=== PATIENT | male | born 1940 | race Caucasian/White ===

== ENCOUNTER → 2017-05-21 | Emergency (ER) | payer OTHER, MEDICARE ==
[~2017-05-21] VITALS: Ht 172.7 cm; Wt 77.6 kg
[~2017-05-21] MED LIST: ALAVERT10 M1 PO; ALBUTEROL SULF8.5 GM INH; ASPIR 8181 MG PO; ATENOLOL25 MG PO; AZITHROMYCIN250 MG PO; AZITHROMYCIN500 MG PO; CLARITIN10 MG PO; CVS LUBRICATING15 ML OP; DENTA 5000 PLUS51 GM DT; DOCUSATE SODIU250 MG PO; GABAPENTIN300 MG; GABAPENTIN300 MG PO; GABAPENTIN400 MG PO; GLUCOPHAGE850 MG PO; GLUCOSAMINE1000 MG PO; HYALURONIC ACI1 EACH PO; IRON325 MG PO; ISOSORBIDE MONO30 M1 PO; KURIC75 GM TP; LACTASE3000 UNIT PO; LIPITOR20 MG PO; LOPID600 MG PO; LUBRICANT EYE3.5 G1 OPTH; MAGNESIUM OXID420 MG PO; MOMETASONE FURO17 GM NAS; MOMETASONE FURO30 ML TOP; MOTION RELIEF25 MG PO; MUCINEX600 MG PO; MUCUS ER600 MG PO; MULTI-BETIC TA1 EACH PO; NARCAN4 MG; NITROSTAT0.4 MG SL; NORCO 10-325 T1 EACH PO; NORCO 5-325 TA1 EACH PO; OFLOXACIN10 ML OPTH; OFLOXACIN10 ML OTIC; OXYCODONE-ACET1 EAC1 PO; PERIDEX473 ML MM; POLYETHYLENE GL17 GM PO; PRAVACHOL40 MG PO; PREDNISONE20 MG PO; PRILOSEC OTC20 MG PO; PRILOSEC20 MG PO; RISPERDAL1 MG PO; SLO-NIACIN500 MG PO; SPIRIVA18 MCG INH; SYMBICORT 16010.2 GM INH; TOPROL XL25 MG PO; VITAMIN D1000 UNIT PO; ZITHROMAX250 MG PO; [UNRECOGNIZED DRUG - OTHER]; [UNRECOGNIZED DRUG - OTHER] TP
--- OUTSIDE RECORDS SUMMARY | ~2017-05-21 | XMS | Clinical Summary ---
Demographics + + + | Address | [address] | | | [place] [address] | + + + | Home Phone | | + + + | Preferred Language | Unknown | + + + | Marital Status | Single | + + + | Bahai Affiliation | UNK | + + + | Race | Unknown | + + + | Ethnic Group | Other Race | + + + Author + + + | Author | NON REVENUE LOCATIONS | + + + | Organization | NON REVENUE LOCATIONS | + + + | Address | Unknown | + + + | Phone | Unavailable | + + + Care Team Providers + +------+ + | Care Block Saw Operator Name | Role | Phone | + +------+ + | No Pcp Per Patient | PP | Unavailable | + +------+ + Source Comments JENNIFER is fully live on both EpicCare Ambulatory and EpicCare InPatient.[facility] Allergies + + + + + + | Active Allergy | Reactions | Severity | Noted | Comments | | | | | Date | | + + + + + + | Chloral Hydrate | Headache | | 03/24/19 | | | | | | 14 | | + + + + + + | Indomethacin | Headache | | 03/24/19 | | | | | | 14 | | + + + + + + | Penicillins | Nausea | | 03/24/19 | | | | | | 14 | | + + + + + + Current Medications + + +-------+---------+------+------+-------+ | Prescription | Sig. | Disp. | Refills | Star | End | Statu | | | | | | t | Date | s | | | | | | Date | | | + + +-------+---------+------+------+-------+ | aspirin EC 81 mg | Take 81 mg by mouth | | | | | Activ | | oral tablet,delayed | once daily. | | | | | e | | release (DR/EC) | | | | | | | + + +-------+---------+------+------+-------+ | atenolol 25 mg | Take 25 mg by mouth | | | | | Activ | | oral tablet | once daily. | | | | | e | + + +-------+---------+------+------+-------+ | | Instill 1 drop into | | | | | Activ | | carboxymethylcellulo | both eyes once | | | | | e | | se 0.5 % ophthalmic | daily. | | | | | | | dropperette | | | | | | | + + +-------+---------+------+------+-------+ | gemfibrozil 600 mg | Take 600 mg by mouth | | | | | Activ | | oral | two times daily. | | | | | e | | tabletIndications: | Indications: | | | | | | | hypertriglyceridemia | HYPERTRIGLYCERIDEMIA | | | | | | + + +-------+---------+------+------+-------+ | guaiFENesin LA 600 | Take 600 mg by mouth | | | | | Activ | | mg oral tablet | twice daily as | | | | | e | | extended release | needed. | | | | | | + + +-------+---------+------+------+-------+ | loratadine 10 mg | Take 10 mg by mouth | | | | | Activ | | oral tablet | once daily. | | | | | e | + + +-------+---------+------+------+-------+ | metFORMIN 850 mg | Take 850 mg by mouth | | | | | Activ | | oral tablet | two times daily. | | | | | e | + + +-------+---------+------+------+-------+ | niacin 500 mg oral | Take 500 mg by mouth | | | | | Activ | | tablet | once daily at | | | | | e | | | bedtime. | | | | | | + + +-------+---------+------+------+-------+ | nitroglycerin 0.4 | Place 0.4 mg under | | | | | Activ | | mg sublingual | tongue every five | | | | | e | | tablet, sublingual | minutes as [...] 15 minutes. | | | | | | + + +-------+---------+------+------+-------+ | cholecalciferol, | Take 2,000 Units by | | | | | Activ | | Vitamin D3, 1,000 | mouth once daily. | | | | | e | | unit oral tablet | | | | | | | + + +-------+---------+------+------+-------+ | desonide 0.05 % | Apply to affected | | | | | Activ | | topical cream | area two times | | | | | e | | | daily. Apply | | | | | | | | sparingly. | | | | | | + + +-------+---------+------+------+-------+ | fluorouracil 5 % | Apply to affected | | | | | Activ | | topical cream | area two times | | | | | e | | | daily. Apply to | [...] | treatment. | | | | | | + + +-------+---------+------+------+-------+ | omeprazole 20 mg | Take 20 mg by mouth | | | | | Activ | | oral capsule,delayed | once daily. | | | | | e | | release(/EC) | | | | | | | + + +-------+---------+------+------+-------+ | docusate sodium | Take 250 mg by mouth | | | | | Activ | | 250 mg oral capsule | twice daily as | | | | | e | | | needed. | | | | | | + + +-------+---------+------+------+-------+ | gabapentin 600 mg | Take 600 mg by mouth | | | | | Activ | | oral tablet | three times daily. | | | | | e | + + +-------+---------+------+------+-------+ | pravastatin 80 mg | Take 80 mg by mouth | | | | | Activ | | oral tablet | once daily at | | | | | e | | | bedtime. | | | | | | + + +-------+---------+------+------+-------+ | risperiDONE 1 mg | Take 1 mg by mouth. | | | | | Activ | | oral tablet | | | | | | e | + + +-------+---------+------+------+-------+ | MOMETASONE FUROATE | Instill in nose two | | | | | Activ | | (MOMETASONE NASL) | times daily. | | | | | e | + + +-------+---------+------+------+-------+ | | Take 1 tablet by | | | | | Activ | | HYDROcodone-acetamin | mouth three times | | | | | e | | ophen 5-325 mg oral | daily as needed. Not | | | | | | | tablet [...] hour period.) | | | | | | + + +-------+---------+------+------+-------+ | | Inhale 2 puffs two | | | | | Activ | | budesonide-formotero | times daily. | | | | | e | | l 160-4.5 | | | | | | | | mcg/actuation | | | | | | | | inhalation HFA | | | | | | | | aerosol inhaler | | | | | | | + + +-------+---------+------+------+-------+ | ferrous sulfate | Take 325 mg by mouth | | | | | Activ | | 325 mg (65 mg iron) | once daily. | | | | | e | | oral tablet | | | | | | | + + +-------+---------+------+------+-------+ | albuterol 90 | Inhale 2 puffs every | | | | | Activ | | mcg/actuation | four hours as | | | | | e | | inhalation HFA | needed. | | | | | | | aerosol inhaler | | | | | | | + + +-------+---------+------+------+-------+ | isosorbide | Take 30 mg by mouth | | | | | Activ | | mononitrate CR 30 mg | once daily. | | | | | e | | oral tablet | | | | | | | | extended release 24 | | | | | | | | hr | | | | | | | + + +-------+---------+------+------+-------+ | magnesium oxide | Take 250 mg by mouth | | | | | Activ | | 250 mg oral tablet | once daily. | | | | | e | + + +-------+---------+------+------+-------+ Active Problems + + + | Problem | Noted Date | + + + | Non-small cell lung cancer (HCC) | 03/24/2013 | + + + Social History + [...] on file | | + + + Last Filed Vital Signs + + + + | Vital Sign | Reading | Time Taken | + + + + | Blood Pressure | 110/72 | 05/01/2013 11:25 AM PST | + + + + | Pulse | 73 | 05/01/2013 11:25 AM PST | + + + + | Temperature | 36.3 C (97.4 F) | 05/01/2013 11:25 AM PST | + + + + | Respiratory Rate | - | - | + + + + | Oxygen Saturation | 94% | 05/01/2013 11:25 AM PST | + + + + | Inhaled Oxygen | - | - | | Concentration | | | + + + + | Weight | 90.3 kg (199 lb) | 05/01/2013 11:25 AM PST | + + + + | Height | - | - | + + + + | Body Mass Index | - | - | + + + + Plan of Treatment + + + + + | Health Maintenance | Due Date | Last Done | Comments | + + + + + | INFLUENZA VACCINE | | | | | (FLU SHOT) | 7 | | | + + + + + Results Not on filefrom Last 3 Months"
--- OUTSIDE RECORDS SUMMARY | ~2017-05-21 | XMS | Clinical Summary ---
Demographics + + + | Address | [address] | | | [place] [address] | + + + | Home Phone | | + + + | Preferred Language | Unknown | + + + | Marital Status | | + + + | Roman Catholic Affiliation | BUDDHIST | + + + | Race | [...] Team Providers + +------+ + | Care Life Scientist Name | Role | Phone | + [...] + + | MEDICARE | MEDICA | [id number] | Medica | [phone] | [address] | | | RE A & | | re | [phone] | [place] [address] | | | B | | | [...] | ap | | | [phone] | + +--------+ +--------+ + +"
--- OUTSIDE RECORDS SUMMARY | ~2017-05-21 | XMS | Clinical Summary ---
Demographics + + + | Address | [address] | | | [place] [address] | + + + | Home Phone | | + + + | Preferred Language | Unknown | + + + | Marital Status | | + + + | Hindu Affiliation | EPISCOPAL | + + + | Race | [...] Team Providers + +------+ + | Care Helmet Hat Puncher Name | Role | Phone | + [...] + + | MEDICARE | MEDICA | [id number] | Medica | [phone] | [address] | | | RE A & | | re | [phone] | [place] [address] | | | B | | | [...] | ap | | | [phone] | + +--------+ +--------+ + +"
--- OUTSIDE RECORDS SUMMARY | ~2017-05-21 | XMS | Clinical Summary ---
Demographics + + + | Address | [address] | | | [place] [address] | + + + | Home Phone | | + + + | Preferred Language | Unknown | + + + | Marital Status | Single | + + + | Yarsanism Affiliation | UNK | + + + [...] Team Providers + +------+ + | Care Drawing In Hand Name | Role | Phone | + +------+ + | No Pcp Per Patient | PP | Unavailable | + +------+ + Source Comments JENNIFER is fully live on both EpicCare Ambulatory and EpicCare InPatient.[facility] Allergies + + + + + + [...]
--- NOTE | 2017-05-21 20:49 | EKG ---
[facility] [address] [facility] [place] [address] Signed Sinus bradycardia Otherwise normal ECG No previous ECGs available Confirmed by AURY QUEZADA MD ([id number]) on 05/21/2017 8:49:43 PM Electronically Signed By: AURY QUEZADA MD 05/21/17 2049 PATIENT NAME: SUSAN GOEL Electrocardiogram DATE OF : 38 PHYSICIAN: AURY QUEZADA MD REPORT #: [id number] REPORT IS CONFIDENTIAL AND NOT TO BE RELEASED WITHOUT AUTHORIZATION
== END | disposition home or self-care (01) ==
LOC: ED 14:24
PROC: 0T9B70Z Drainage of Bladder with Drainage Device, Via Natural or Artificial Opening (ICD-10-PCS; principal; 2017-05-21)
DX: R55 Syncope and collapse (principal); J44.9 Chronic obstructive pulmonary disease, unspecified; F20.9 Schizophrenia, unspecified; E78.00 Pure hypercholesterolemia, unspecified; I10 Essential (primary) hypertension; E11.9 Type 2 diabetes mellitus without complications; Z88.0 Allergy status to penicillin; Z88.8 Allergy status to other drugs, medicaments and biological substances; Z79.899 Other long term (current) drug therapy; Z79.82 Long term (current) use of aspirin; Z79.84 Long term (current) use of oral hypoglycemic drugs
CPT/HCPCS: 51701; 71045; 80053; 81001; 84484; 85025; 93005; 93010; 96374; 99284; G0480; J2310

== ENCOUNTER 2017-05-22 13:03 | Emergency (ER) | payer MEDICARE, OTHER ==
[~2017-05-22] VITALS: Ht 172.7 cm; Wt 70.3 kg
--- OUTSIDE RECORDS SUMMARY | ~2017-05-22 | XMS | Clinical Summary ---
Demographics + + + | Address | [address] | | | [place] [address] | + + + | Home Phone | | + + + | Preferred Language | Unknown | + + + | Marital Status | | + + + | Baptism Affiliation | ALEVISM | + + + | Race | White | + + + | Ethnic Group | Not or | + + + Author + + + | Author | [facility] | + + + | Organization | [facility] | + + + | Address | Unknown | + + + | Phone | Unavailable | + + + Support + + +---------+ + | Name | Relationship | Address | Phone | + + +---------+ + | ANJU MOSS | ECON | Unknown | | + + +---------+ + | RODERICK MOSS | ECON | Unknown | | + + +---------+ + Care Team Providers + +------+ + | Care Fish House Worker Name | Role | Phone | + +------+ + | None Per Patient, None Per | PP | Unavailable | | Pt | | | + +------+ + Allergies Not on File Current Medications + + +-------+---------+------+------+-------+ | Prescription | Sig. | Disp. | Refills | Star | End | Statu | | | | | | t | Date | s | | | | | | Date | | | + + +-------+---------+------+------+-------+ | Med List @ Nursing | by Not Applicable | | | | | Activ | | Home | route As Needed. | | | | | e | + + +-------+---------+------+------+-------+ Active Problems + + + | Problem | Noted Date | + + + | Lung cancer (HCC) | 12/03/2011 | + + + | Acute exacerbation of chronic obstructive pulmonary disease | 12/03/2011 | | (COPD) (HCC) | | + + + | Type II or unspecified type diabetes mellitus without mention of | 12/03/2011 | | complication, not stated as uncontrolled | | + + + | Spinal stenosis | 12/03/2011 | + + + Social History + +-------+ [...] | + + + + + | Eye Exam Chronic | | | | | Disease | 9 | | | + + + + + | Foot Exam | | | | | | 9 | | | + + + + + | Hemoglobin A1c | | | | | | 9 | | | + + + + + | Microalbuminuria | | | | | | 9 | | | + + + + + | Lipid Screening | | | | | | 9 | | | + + + + + | Tetanus | | | | | | 8 | | | + + + + + | Zoster Vaccine | | | | | | 9 | | | + + + + + | Pneumo 65+ (1 of 2 - | | | | | PCV13) | 4 | | | + + + + + | IMM Influenza (#1) | | | | | | 7 | | | + + + + + Results Not on filefrom Last 3 Months Insurance + +--------+ +--------+ + + | Payer | Benefi | Subscriber | Type | Phone | Address | | | t Plan | ID | | | | | | / | | | | | | | Group | | | | | + +--------+ +--------+ + + | MEDICARE | MEDICA | [id number] | Medica | [phone] | [address] | | | RE A & | | re | [phone] | [place] [address] | | | B | | | | | + +--------+ +--------+ + + + +--------+ +--------+ + + | Guarantor Name | Accoun | Relation to | Date | Phone | Billing Address | | | t Type | Patient | of | | | | | | | | | | + +--------+ +--------+ + + | RENNY MOSS | Person | Self [birth year] Home: | [address] | | [place] | [place] | | 1940 | [phone] | [place] | | | ap | | | [phone] | + +--------+ +--------+ + +"
--- OUTSIDE RECORDS SUMMARY | ~2017-05-22 | XMS | Clinical Summary ---
Demographics + + + | Address | [address] | | | [place] [address] | + + + | Home Phone | | + + + | Preferred Language | Unknown | + + + | Marital Status | | + + + | Faith Affiliation | AMISH | + + + | Race | [...] Team Providers + +------+ + | Care Credit Collector Name | Role | Phone | + [...] + + | MEDICARE | MEDICA | [id number] | Medica | [phone] | [address] | | | RE A & | | re | [phone] | [place] [address] | | | B | | | [...] | ap | | | [phone] | + +--------+ +--------+ + +"
--- OUTSIDE RECORDS SUMMARY | ~2017-05-22 | XMS | Clinical Summary ---
Demographics + + + | Address | [address] | | | [place] [address] | + + + | Home Phone [...] Team Providers + +------+ + | Care Rim Turning Finisher Name | Role | Phone | + +------+ + | No Pcp Per Patient | PP | Unavailable | + +------+ + Source Comments JENNIFER is fully live on both EpicCare Ambulatory and EpicCare InPatient.[facility] Allergies + [...]
--- OUTSIDE RECORDS SUMMARY | ~2017-05-22 | XMS | Clinical Summary ---
Demographics + + + | Address | [address] | | | [place] [address] | + + + | Home Phone [...] Team Providers + +------+ + | Care District Court Administrator Name | Role | Phone | + +------+ + | No Pcp Per Patient | PP | Unavailable | + +------+ + Source Comments JENNIFER is fully live on both EpicCare Ambulatory and EpicCare InPatient.[facility] Allergies + + + + + [...]
== END 2017-05-22 14:21 | disposition home or self-care (01) ==
LOC: ED 13:03
DX: J32.9 Chronic sinusitis, unspecified (principal); J44.9 Chronic obstructive pulmonary disease, unspecified; F20.9 Schizophrenia, unspecified; E78.00 Pure hypercholesterolemia, unspecified; I10 Essential (primary) hypertension; E11.9 Type 2 diabetes mellitus without complications; Z87.891 Personal history of nicotine dependence; Z88.0 Allergy status to penicillin; Z88.8 Allergy status to other drugs, medicaments and biological substances; Z79.899 Other long term (current) drug therapy; Z79.82 Long term (current) use of aspirin; Z79.84 Long term (current) use of oral hypoglycemic drugs
CPT/HCPCS: 70450; 99284

== ENCOUNTER 2017-07-05 15:46 | Observation (INO) | payer MEDICARE, OTHER ==
[~2017-07-05] VITALS: Ht 172.7 cm; Wt 66.5 kg
--- OUTSIDE RECORDS SUMMARY | ~2017-07-05 | XMS | Encounter Summary ---
Demographics + + + | Address | [address] | | | [place] [address] | + + + | Home Phone | | + + + | Preferred Language | Unknown | + + + | Marital Status | | + + + | Worship Affiliation | Unknown | + + + | Race | Unknown | + + + | Ethnic Group | Unknown | + + + Author + + + | Author | [facility] | + + + | Organization | [facility] | + + + | Address | Unknown | + + + | Phone | Unavailable | + + + Support + + +---------+ + | Name | Relationship | Address | Phone | + + +---------+ + | Tutu Heck | ECON | Unknown | | + + +---------+ + Care Team Providers + +------+ + | Care Storage Consultant Name | Role | Phone | + +------+ + PCP | Unavailable | + +------+ + Encounter Details +--------+ + + + + | Date | Type | Department | Care Team | Description | +--------+ + + + + | 05/20/ | Telephone | [facility] | [facility] [place], | | | 2017 | | [facility] | [facility] | | | | | [address] | | | | | | [place] | | | | | | [address] | | | | | | [phone] | | | +--------+ + + + + Social History + +-------+ +--------+------+ | Tobacco Use | Types | Packs/Day | Years | Date | | | | | Used | | + +-------+ +--------+------+ | Current Every Day | | | | | | Smoker | | | | | + +-------+ +--------+------+ + + +---------+ + | Alcohol Use | Drinks/We | oz/Week | Comments | | | ek | | | + + +---------+ + | No | | | | + + +---------+ + + + + | Sex Assigned at | Date Recorded | | | | + + + | Not on file | | + + + as of this encounter Plan of Treatment Not on fileas of this encounter Visit Diagnoses Not on filein this encounter"
--- OUTSIDE RECORDS SUMMARY | ~2017-07-05 | XMS | Clinical Summary ---
Demographics + + + | Address | [address] | | | [place] [address] | + + + | Home Phone | | + + + | Preferred Language | Unknown | + + + | Marital Status | | + + + | Temple Affiliation | Unknown | + + + | Race | Unknown | + + + | Ethnic Group | Unknown | + + + Author + + + | Author | [facility] | | | and [place] | + + + | Organization | [facility] | | | and [place] | + + + | Address | Unknown | + + + | Phone | Unavailable | + + + Support + + +---------+ + | Name | Relationship | Address | Phone | + + +---------+ + | CASSIDY LUZ ECON | Unknown | | + + +---------+ + Care Team Providers + +------+ + | Care Cabin Equipment Supervisor Name | Role | Phone | + +------+ + PP | Unavailable | + +------+ + Allergies Not on File Current Medications Not on file Active Problems Not on file Social History + +-------+ +--------+------+ | Tobacco [...] on file | | + + + Plan of Treatment + + + + + | Health Maintenance | Due Date | Last Done | Comments | + + + + + | Vaccine: | | | | | Dtap/Tdap/Td (1 - | 8 | | | | Tdap) | | | | + + + + + | Vaccine: Zoster (#1) | | | | | | 9 | | | + + + + + | Vaccine: | | | | | Pneumococcal 65+ | 4 | | | | Low/Medium Risk (1 | | | | | of 2 - PCV13) | | | | + + + + + | Vaccine: Influenza | | | | | (Season Ended) | 8 | | | + + + + + Results Not on filefrom Last 3 Months"
--- OUTSIDE RECORDS SUMMARY | ~2017-07-05 | XMS | Encounter Summary ---
Demographics + + + | Address | [address] | | | [place] [address] | + + + | Home Phone | | + + + | Preferred Language | Unknown | + + + | Marital Status | | + + + | Oriental Orthodox Affiliation | Unknown | + + + | Race | Unknown | + + + | Ethnic Group | Unknown | + + + Author + + + | Author | [facility] | + + + | Organization | [facility] | + + + | Address | Unknown | + + + | Phone | Unavailable | + + + Support + + +---------+ + | Name | Relationship | Address | Phone | + + +---------+ + | Tutu Heck | ECON | Unknown | | + + +---------+ + Care Team Providers + +------+ + | Care Branch Sales Manager Name | Role | Phone | + +------+ + PCP | Unavailable | + +------+ + Encounter Details +--------+ + + + + | Date | Type | Department | Care Team | Description | +--------+ + + + + | 05/08/ | Telephone | [facility] | [place], | | | 2017 | | [facility] | [employer] [facility] | | | | | [address] | | | | | | [place] | | | | | | [address] | | | | | | [phone] | | | +--------+ + + + [...]
--- OUTSIDE RECORDS SUMMARY | ~2017-07-05 | XMS | Encounter Summary ---
Demographics + + + | Address | [address] | | | [place] [address] | + + + | Home Phone | | + + + | Preferred Language | Unknown | + + + | Marital Status | | + + + | Pentecostalism Affiliation | Unknown | + + + | Race | Unknown | + + + | Ethnic Group | Unknown | + + + Author + + + | Author | [facility] | + + + | Organization | [facility] | + + + | Address | Unknown | + + + | Phone | Unavailable | + + + Support + + +---------+ + | Name | Relationship | Address | Phone | + + +---------+ + | Tutu Heck | ECON | Unknown | | + + +---------+ + Care Team Providers + +------+ + | Care Dock Manager Name | Role | Phone | + +------+ + PCP | Unavailable | + +------+ + Encounter Details +--------+ + + + + | Date | Type | Department | Care Team | Description | +--------+ + + + + | 05/20/ | Telephone | [facility] | [place], | | | 2017 | | [facility] | DRESSAGE JUDGE | | | | | [address] | | | | | | [place] | | | | | | [address] | | | | | | [phone] | | | +--------+ + + + [...]
--- OUTSIDE RECORDS SUMMARY | ~2017-07-05 | XMS | Encounter Summary ---
Demographics + + + | Address | [address] | | | [place] [address] | + + + | Home Phone | | + + + | Preferred Language | Unknown | + + + | Marital Status | | + + + | Uatsdin Affiliation | Unknown | + + + | Race | Unknown | + + + | Ethnic Group | Unknown | + + + Author + + + | Author | [facility] | + + + | Organization | [facility] | + + + | Address | Unknown | + + + | Phone | Unavailable | + + + Support + + +---------+ + | Name | Relationship | Address | Phone | + + +---------+ + | Tutu Heck | ECON | Unknown | | + + +---------+ + Care Team Providers + +------+ + | Care Technical Data Analyst Name | Role | Phone | + +------+ + PCP | Unavailable | + +------+ + Encounter Details +--------+ + + + + | Date | Type | Department | Care Team | Description | +--------+ + + + + | 06/06/ | Hospital | [facility] | See, Medical | Pain | | 2018 | Encounter | [facility] | Record | | | | | RADIOLOGY [address] | | | | | | [address] | | | | | | [place] [address] | | | | | | [phone] | | | +--------+ + + + [...] + + + as of this encounter Medications at Time of Discharge + + +-------+---------+--------+ + | Medication | Sig. | Disp. | Refills | Start | End Date | | | | | | Date | | + + +-------+---------+--------+ + | albuterol | Inhale 2 puffs into | | | | | | (PROVENTIL | the lungs every 4 | | | | | | HFA;VENTOLIN HFA) | (four) hours as | | | | | | 108 (90 Base) | needed for Wheezing. | | | | | | MCG/ACT inhaler | | | | | | + + +-------+---------+--------+ + | aspirin 81 MG | Take 81 mg by mouth | | | | | | tablet | daily. | | | | | + + +-------+---------+--------+ + | atorvastatin | Take 20 mg by mouth | | | | | | (LIPITOR) 20 MG | nightly. | | | | | | tablet | | | | | | + + +-------+---------+--------+ + | | Inhale 2 puffs into | | | | | | budesonide-formotero | the lungs 2 (two) | | | | | | l (SYMBICORT) | times daily. | | | | | | 160-4.5 MCG/ACT | | | | | | | inhaler | | | | | | + + +-------+---------+--------+ + | | Place 1 drop into | | | | | | carboxymethylcellulo | both eyes 2 (two) | | | | | | se (REFRESH PLUS) | times daily as | | | | | | 0.5 % SOLN | needed. | | | | | + + +-------+---------+--------+ + | docusate sodium | Take 250 mg by mouth | | | | | | (COLACE) 250 MG | 2 (two) times | | | | | | capsule | daily. | | | | | + + +-------+---------+--------+ + | gabapentin | Take 400 mg by mouth | | | | | | (NEURONTIN) 400 MG | 3 (three) times | | | | | | capsule | daily. 1 tab AM, and | | | | | | | noon, 2 tabs at HS | | | | | + + +-------+---------+--------+ + | guaiFENesin | Take 600 mg by mouth | | | | | | (MUCINEX) 600 MG 12 | 2 (two) times | | | | | | hr tablet | daily. | | | | | + + +-------+---------+--------+ + | | Take 1 tablet by | | | | | | HYDROcodone-acetamin | mouth every 6 (six) | | | | | | ophen (NORCO) 10-325 | hours as needed for | | | | | | MG per tablet | Pain. | | | | | + + +-------+---------+--------+ + | isosorbide | Take 30 mg by mouth | | | | | | dinitrate (ISORDIL) | daily. | | | | | | 30 MG tablet | | | | | | + + +-------+---------+--------+ + | loratadine | Take 10 mg by mouth | | | | | | (CLARITIN) 10 MG | daily. | | | | | | tablet | | | | | | + + +-------+---------+--------+ + | meclizine | Take 25 mg by mouth | | | | | | (ANTIVERT) 25 MG | daily as needed. | | | | | | tablet | | | | | | + + +-------+---------+--------+ + | metFORMIN | Take 850 mg by mouth | | | | | | (GLUCOPHAGE) 850 MG | 2 (two) times daily | | | | | | tablet | with meals. | | | | | + + +-------+---------+--------+ + | metoprolol | Take 12.5 mg by | | | | | | (LOPRESSOR) 25 MG | mouth daily. | | | | | | tablet | | | | | | + + +-------+---------+--------+ + | mometasone | 2 sprays by Each | | | | | | (NASONEX) 50 MCG/ACT | Nare route 2 (two) | | | | | | nasal | times daily. | | | | | + + +-------+---------+--------+ + | naloxone (KADLEC | 1 mg by Each Nare | | | | | | DISPENSED | route once as needed | | | | | | MEDICATION) 2 MG/2 | for Opioid | | | | | | ML (4 mL pre-sugey) | Reversal. Prepare | | | | | | | naloxone as shown on | | | | | | | instruction sheet. | | | | | | | [place] 1 mL (1 mg) in | | | | | | | each nostril. | | | | | | | Repeat after 3 | | | | | | | minutes if no or | | | | | | | minimal response. | | | | | | | Follow up with | | | | | | | emergency care. | | | | | + + +-------+---------+--------+ + | nitroGLYCERIN | Place 0.4 mg under | | | | | | (NITROSTAT) 0.4 MG | the tongue every 5 | | | | | | SL tablet | (five) minutes as | | | | | | | needed for Chest | | | | | | | pain. | | | | | + + +-------+---------+--------+ + | omeprazole | Take by mouth. | | | | | | (PRILOSEC) 20 MG | | | | | | | capsule | | | | | | + + +-------+---------+--------+ + | risperidone | Take 3 mg by mouth | | | | | | (RISPERDAL) 3 MG | daily. | | | | | | tablet | | | | | | + + +-------+---------+--------+ + | tiotropium | Inhale 2 puffs into | | | | | | (SPIRIVA RESPIMAT) | the lungs daily. | | | | | | 2.5 MCG/ACT inhaler | | | | | | + + +-------+---------+--------+ + as of this encounter Plan of Treatment Not on fileas of this encounter Results X-ray lumbar spine 4-5 views (05/31/2017 11:38 PM) + + + | Specimen | Performing Laboratory | + + + | | [facility] [address] [place] [address] | + + + + + | Narrative | + + | This is a non-reportable procedure without a radiologist report and is used for | | image storage only | + + in this encounter Visit Diagnoses + + | Diagnosis | + + | Pain | + + | Generalized pain | + +"
--- OUTSIDE RECORDS SUMMARY | ~2017-07-05 | XMS | Encounter Summary ---
Demographics + + + | Address | [address] | | | [place] [address] | + + + | Home Phone | | + + + | Preferred Language | Unknown | + + + | Marital Status | | + + + | Orthodox Affiliation | Unknown | + + + | Race | Unknown | + + + | Ethnic Group | Unknown | + + + Author + + + | Author | [facility] | + + + | Organization | [facility] | + + + | Address | Unknown | + + + | Phone | Unavailable | + + + Support + + +---------+ + | Name | Relationship | Address | Phone | + + +---------+ + | Tutu Heck | ECON | Unknown | | + + +---------+ + Care Team Providers + +------+ + | Care Work Measurement Engineer Name | Role | Phone | + +------+ + PCP | Unavailable | + +------+ + Encounter Details +--------+ + + + + | Date | Type | Department | Care Team | Description | +--------+ + + + + | 06/06/ | Hospital | [facility] | See, Medical | Pain | | 2018 | Encounter | [facility] | Record | | | | | RADIOLOGY [address] | | | | | | [address] | | | | | | [place] [address] | | | | | | [phone] | | | +--------+ + + + [...] | | | | | | | [place] 1 mL (1 mg) in | | [...] Laboratory | + + + | | [facility] [address] [place] [address] | + + + + + | Narrative | + + | This is a non-reportable procedure without a radiologist report and is used for | | image storage only | + + in this encounter Visit Diagnoses + + | Diagnosis | + + | Pain | + + | Generalized pain | + +"
--- OUTSIDE RECORDS SUMMARY | ~2017-07-05 | XMS | Encounter Summary ---
Demographics + + + | Address | [address] | | | [place] [address] | + + + | Home Phone | | + + + | Preferred Language | Unknown | + + + | Marital Status | | + + + | Faith Affiliation | Unknown | + + + | Race | Unknown | + + + | Ethnic Group | Unknown | + + + Author + + + | Author | [facility] | + + + | Organization | [facility] | + + + | Address | Unknown | + + + | Phone | Unavailable | + + + Support + + +---------+ + | Name | Relationship | Address | Phone | + + +---------+ + | Tutu Heck | ECON | Unknown | | + + +---------+ + Care Team Providers + +------+ + | Care Mill Tender Name | Role | Phone | + +------+ + PCP | Unavailable | + +------+ + Encounter Details +--------+ + + + + | Date | Type | Department | Care Team | Description | +--------+ + + + + | 05/08/ | Telephone | [facility] | Melodie Norwood, | | | 2017 | | [facility] | ROOFING CONTRACTOR | | | | | [address] | | | | | | [place] | | | | | | [address] | | | | | | [phone] | | | +--------+ + + + [...]
--- OUTSIDE RECORDS SUMMARY | ~2017-07-05 | XMS | Encounter Summary ---
Demographics + + + | Address | [address] | | | [place] [address] | + + + | Home Phone | | + + + | Preferred Language | Unknown | + + + | Marital Status | | + + + | Mu-Ism Affiliation | Unknown | + + + | Race | Unknown | + + + | Ethnic Group | Unknown | + + + Author + + + | Author | [facility] | + + + | Organization | [facility] | + + + | Address | Unknown | + + + | Phone | Unavailable | + + + Support + + +---------+ + | Name | Relationship | Address | Phone | + + +---------+ + | Tutu Heck | ECON | Unknown | | + + +---------+ + Care Team Providers + +------+ + | Care Pv Installer Tech Name | Role | Phone | + +------+ + PCP | Unavailable | + +------+ + Encounter Details +--------+ + + + + | Date | Type | Department | Care Team | Description | +--------+ + + + + | 06/06/ | Ancillary | [facility] | See, Medical | Pain | | 2018 | Orders | [facility] Xray | Record | | | | | [address] | | | | | | [place] [address] | | | | | | [phone] | | | +--------+ + + + [...] Laboratory | + + + | | [facility] [address] [place] [address] | + + + + + | Narrative | + + | This is a non-reportable procedure without a radiologist report and is used for | | image storage only | + + in this encounter Visit Diagnoses + + | Diagnosis | + + | Pain | + + | Generalized pain | + +"
--- OUTSIDE RECORDS SUMMARY | ~2017-07-05 | XMS | Encounter Summary ---
Demographics + + + | Address | [address] | | | [place] [address] | + + + | Home Phone | | + + + | Preferred Language | Unknown | + + + | Marital Status | | + + + | Jew Affiliation | Unknown | + + + | Race | Unknown | + + + | Ethnic Group | Unknown | + + + Author + + + | Author | [facility] | + + + | Organization | [facility] | + + + | Address | Unknown | + + + | Phone | Unavailable | + + + Support + + +---------+ + | Name | Relationship | Address | Phone | + + +---------+ + | Tutu Heck | ECON | Unknown | | + + +---------+ + Care Team Providers + +------+ + | Care Assistant Site Manager Name | Role | Phone | + +------+ + PCP | Unavailable | + +------+ + Encounter Details +--------+ + + + + | Date | Type | Department | Care Team | Description | +--------+ + + + + | 06/06/ | Ancillary | [facility] | See, Medical | Pain | | 2018 | Orders | [facility] Xray | Record | | | | | [address] | | | | | | [place] [address] | | | | | | [phone] | | | +--------+ + + + [...] Laboratory | + + + | | [facility] [address] [place] [address] | + + + + + | Narrative | + + | This is a non-reportable procedure without a radiologist report and is used for | | image storage only | + + in this encounter Visit Diagnoses + + | Diagnosis | + + | Pain | + + | Generalized pain | + +"
--- OUTSIDE RECORDS SUMMARY | ~2017-07-05 | XMS | Clinical Summary ---
Demographics + + + | Address | [address] | | | [place] [address] | + + + | Home Phone | | + + + | Preferred Language | Unknown | + + + | Marital Status | Single | + + + | Orthodox Affiliation | UNK | + + + [...] Providers + +------+ + | Care Technical Sales Director Name | Role | Phone | + +------+ + | No Pcp Per Patient | PP | Unavailable | + +------+ + Source Comments JENNIFER is fully live on both EpicCare Ambulatory and EpicCare InPatient.[facility] Allergies + + + + + + [...] | | | | (FLU SHOT) | 8 | | | + + + + + Results Not on filefrom Last 3 Months"
--- OUTSIDE RECORDS SUMMARY | ~2017-07-05 | XMS | Clinical Summary ---
Demographics + + + | Address | [address] | | | [place] [address] | + + + | Home Phone | | + + + | Preferred Language | Unknown | + + + | Marital Status | | + + + | Sabianism Affiliation | Unknown | + + + | Race | Unknown | + + + | Ethnic Group | Unknown | + + + Author + + + | Author | [facility] | + + + | Organization | [facility] | + + + | Address | Unknown | + + + | Phone | Unavailable | + + + Support + + +---------+ + | Name | Relationship | Address | Phone | + + +---------+ + | Tutu Heck | ECON | Unknown | | + + +---------+ + Care Team Providers + +------+ + | Care Business Development Professional Name | Role | Phone | + +------+ + PP | Unavailable | + +------+ + Allergies + + + + + + | Active Allergy | Reactions | Severity | Noted | Comments | | | | | Date | | + + + + + + | Penicillins | Nausea and Vomiting | Low | 01/30/20 | Also no effective | | | | | 17 | | + + + + + + Current Medications + + +-------+---------+------+------+-------+ | Prescription | Sig. | Disp. | Refills | Star | End | Statu | | | | | | t | Date | s | | | | | | Date | | | + + +-------+---------+------+------+-------+ | omeprazole | Take by mouth. | | | | | Activ | | (PRILOSEC) 20 MG | | | | | | e | | capsule | | | | | | | + + +-------+---------+------+------+-------+ | meclizine | Take 25 mg by mouth | | | | | Activ | | (ANTIVERT) 25 MG | daily as needed. | | | | | e | | tablet | | | | | | | + + +-------+---------+------+------+-------+ | metoprolol | Take 12.5 mg by | | | | | Activ | | (LOPRESSOR) 25 MG | mouth daily. | | | | | e | | tablet | | | | | | | + + +-------+---------+------+------+-------+ | docusate sodium | Take 250 mg by mouth | | | | | Activ | | (COLACE) 250 MG | 2 (two) times | | | | | e | | capsule | daily. | | | | | | + + +-------+---------+------+------+-------+ | gabapentin | Take 400 mg by mouth | | | | | Activ | | (NEURONTIN) 400 MG | 3 (three) times | | | | | e | | capsule | daily. 1 tab AM, and | | | | | | | | noon, 2 tabs at HS | | | | | | + + +-------+---------+------+------+-------+ | metFORMIN | Take 850 mg by mouth | | | | | Activ | | (GLUCOPHAGE) 850 MG | 2 (two) times daily | | | | | e | | tablet | with meals. | | | | | | + + +-------+---------+------+------+-------+ | mometasone | 2 sprays by Each | | | | | Activ | | (NASONEX) 50 MCG/ACT | Nare route 2 (two) | | | | | e | | nasal | times daily. | | | | | | + + +-------+---------+------+------+-------+ | albuterol | Inhale 2 puffs into | | | | | Activ | | (PROVENTIL | the lungs every 4 | | | | | e | | HFA;VENTOLIN HFA) | (four) hours as | | | | | | | 108 (90 Base) | needed for Wheezing. | | | | | | | MCG/ACT inhaler | | | | | | | + + +-------+---------+------+------+-------+ | atorvastatin | Take 20 mg by mouth | | | | | Activ | | (LIPITOR) 20 MG | nightly. | | | | | e | | tablet | | | | | | | + + +-------+---------+------+------+-------+ | | Inhale 2 puffs into | | | | | Activ | | budesonide-formotero | the lungs 2 (two) | | | | | e | | l (SYMBICORT) | times daily. | | | | | | | 160-4.5 MCG/ACT | | | | | | | | inhaler | | | | | | | + + +-------+---------+------+------+-------+ | tiotropium | Inhale 2 puffs into | | | | | Activ | | (SPIRIVA RESPIMAT) | the lungs daily. | | | | | e | | 2.5 MCG/ACT inhaler | | | | | | | + + +-------+---------+------+------+-------+ | guaiFENesin | Take 600 mg by mouth | | | | | Activ | | (MUCINEX) 600 MG 12 | 2 (two) times | | | | | e | | hr tablet | daily. | | | | | | + + +-------+---------+------+------+-------+ | aspirin 81 MG | Take 81 mg by mouth | | | | | Activ | | tablet | daily. | | | | | e | + + +-------+---------+------+------+-------+ | loratadine | Take 10 mg by mouth | | | | | Activ | | (CLARITIN) 10 MG | daily. | | | | | e | | tablet | | | | | | | + + +-------+---------+------+------+-------+ | nitroGLYCERIN | Place 0.4 mg under | | | | | Activ | | (NITROSTAT) 0.4 MG | the tongue every 5 | | | | | e | | SL tablet | (five) minutes as | | | | | | | | needed for Chest | | | | | | | | pain. | | | | | | + + +-------+---------+------+------+-------+ | | Place 1 drop into | | | | | Activ | | carboxymethylcellulo | both eyes 2 (two) | | | | | e | | se (REFRESH PLUS) | times daily as | | | | | | | 0.5 % SOLN | needed. | | | | | | + + +-------+---------+------+------+-------+ | | Take 1 tablet by | | | | | Activ | | HYDROcodone-acetamin | mouth every 6 (six) | | | | | e | | ophen (NORCO) 10-325 | hours as needed for | | | | | | | MG per tablet | Pain. | | | | | | + + +-------+---------+------+------+-------+ | risperidone | Take 3 mg by mouth | | | | | Activ | | (RISPERDAL) 3 MG | daily. | | | | | e | | tablet | | | | | | | + + +-------+---------+------+------+-------+ | naloxone (KADLEC | 1 mg by Each Nare | | | | | Activ | | DISPENSED | route once as needed | | | | | e | | MEDICATION) 2 MG/2 | for Opioid | | | | | | | ML (4 mL pre-sugey) | Reversal. Prepare | | | | | | | | naloxone as shown on | | | | | | | | instruction sheet. | | | | | | | | [place] 1 mL (1 mg) in | | [...] emergency care. | | | | | | + + +-------+---------+------+------+-------+ | isosorbide | Take 30 mg by mouth | | | | | Activ | | dinitrate (ISORDIL) | daily. | | | | | e | | 30 MG tablet | | | | | | | + + +-------+---------+------+------+-------+ Active Problems + + + | Problem | Noted Date | + + + | Facet arthropathy, lumbar (HCC) | 01/30/2017 | + + + | Spinal stenosis of lumbar region at multiple levels | 01/30/2017 | + + + | Neural foraminal stenosis, multilevel | 01/30/2017 | + + + | HNP (herniated nucleus pulposus), lumbar | 01/30/2017 | + + + | Chronic bilateral low back pain without sciatica | 01/29/2017 | + + + | DDD (degenerative disc disease), lumbar | 01/29/2017 | + + + | Osteoarthritis | 01/29/2017 | + + + Encounters +--------+ + + + + | Date | Type | Specialty | Care Team | Description | +--------+ + + + + | 06/06/ | Hospital | | See, Medical | Pain | | 2018 | Encounter | | Record | | +--------+ + + + + | 06/06/ | Ancillary | | See, Medical | Pain | | 2018 | Orders | | Record | | +--------+ + + + + | 06/05/ | Telephone | | Melodie Norwood, | | | 2017 | | | COMMUNICATION CONSULTANT | | +--------+ + + + + | 05/30/ | Telephone | | Yolis Bee, | | | 2017 | | | SECURITY SYSTEM ADMINISTRATOR | | +--------+ + + + + | 05/20/ | Telephone | | Melodie Norwood, | | 2017 | | | COMMUNICATION CONSULTANT | | +--------+ + + + + | 05/08/ | Telephone | Melodie Hadley, | | | 2017 | | | COMMUNICATION CONSULTANT | | +--------+ + + + + from Last 3 Months Family History + + +------+ + | Medical History | Relation | Name | Comments | + + +------+ + | Other (see comments) | Father | | blood clot | + + +------+ + + +------+ + + | Relation | Name | Status | Comments | + +------+ + + | Father | | | | + +------+ + + | Mother | | | MVA | + +------+ + + Social History + +-------+ +--------+------+ | Tobacco Use | Types | Packs/Day | Years | Date | | | | | Used | | + +-------+ +--------+------+ | Current Every Day | | | | | | Smoker | | | | | + +-------+ +--------+------+ + + | Tobacco Cessation: Ready to Quit: No | + + + + +---------+ + | Alcohol Use [...] + + + | Blood Pressure | 132/84 | 01/29/2017 3:15 PM PST | + + + + | Pulse | 66 | 01/29/2017 3:15 PM PST | + + + + | Temperature | - | - | + + + + | Respiratory Rate | - | - | + + + + | Oxygen Saturation | - | - | + + + + | Inhaled Oxygen | - | - | | Concentration | | | + + + + | Weight | 68 kg (150 lb) | 01/29/2017 3:15 PM PST | + + + + | Height | 172.7 cm (5' 8") | 01/29/2017 3:15 PM PST | + + + + | Body Mass Index | 22.81 | 01/29/2017 3:15 PM PST | + + + + Plan of [...] | + + + + + Results X-ray lumbar spine 4-5 views (05/31/2017 11:38 PM) + + + | Specimen | Performing Laboratory | + + + | | [facility] [place] [address] | + + + + + | Narrative | + + | This is a non-reportable procedure without a radiologist report and is used for | | image storage only | + + from Last 3 Months Insurance + +--------+ +------+ + + | Payer | Benefi | Subscriber | Type | Phone | Address | | | t Plan | ID | | | | | | / | | | | | | | Group | | | | | + +--------+ +------+ + + | [employer] [place] | [phone] | | [phone] [employer] [id number] | | ADMINISTRATION | CHOICE | | [phone] | | | | | | | [address] [place] | | | | | | | [phone] | + +--------+ +------+ + + + +--------+ +--------+ + + | Guarantor Name | Accoun | Relation to | Date | Phone | Billing Address | | | t Type | Patient | of | | | | | | | | | | + +--------+ +--------+ + + | RENNY MOSS | [place] | Self [birth year] | Home: | [address] | | | ns | | [phone] | [phone] | [place] | | | Admini | | | [phone] | | | strati | | | | | | | on | | | | | + +--------+ +--------+ + +
--- OUTSIDE RECORDS SUMMARY | ~2017-07-05 | XMS | Encounter Summary ---
Demographics + + + | Address | [address] | | | [place] [address] | + + + | Home Phone | | + + + | Preferred Language | Unknown | + + + | Marital Status | | + + + | Samaritan Affiliation | Unknown | + + + | Race | Unknown | + + + | Ethnic Group | Unknown | + + + Author + + + | Author | [facility] | + + + | Organization | [facility] | + + + | Address | Unknown | + + + | Phone | Unavailable | + + + Support + + +---------+ + | Name | Relationship | Address | Phone | + + +---------+ + | Tutu Heck | ECON | Unknown | | + + +---------+ + Care Team Providers + +------+ + | Care Application Technical Designer Name | Role | Phone | + +------+ + PCP | Unavailable | + +------+ + Encounter Details +--------+ + + + + | Date | Type | Department | Care Team | Description | +--------+ + + + + | 05/30/ | Telephone | [facility] | Yolis Bee, | | | 2017 | | [facility] | HAND DECORATOR | | | | | [address] | | | | | | [place] | | | | | | [address] | | | | | | [phone] | | | +--------+ + + + [...]
--- OUTSIDE RECORDS SUMMARY | ~2017-07-05 | XMS | Encounter Summary ---
Demographics + + + | Address | [address] | | | [place] [address] | + + + | Home Phone | | + + + | Preferred Language | Unknown | + + + | Marital Status | | + + + | Sabianism Affiliation | Unknown | + + + | Race | Unknown | + + + | Ethnic Group | Unknown | + + + Author + + + | Author | [facility] | + + + | Organization | [facility] | + + + | Address | Unknown | + + + | Phone | Unavailable | + + + Support + + +---------+ + | Name | Relationship | Address | Phone | + + +---------+ + | Tutu Heck | ECON | Unknown | | + + +---------+ + Care Team Providers + +------+ + | Care Chief Investigator Name | Role | Phone | + +------+ + PCP | Unavailable | + +------+ + Encounter Details +--------+ + + + + | Date | Type | Department | Care Team | Description | +--------+ + + + + | 05/30/ | Telephone | [facility] | Yolis Bee, | | | 2017 | | [facility] | EXAMINER RATING CLERK | | | | | [address] | | | | | | [place] | | | | | | [address] | | | | | | [phone] | | | +--------+ + + + [...]
--- OUTSIDE RECORDS SUMMARY | ~2017-07-05 | XMS | Encounter Summary ---
Demographics + + + | Address | [address] | | | [place] [address] | + + + | Home Phone | | + + + | Preferred Language | Unknown | + + + | Marital Status | | + + + | Rastafari Affiliation | Unknown | + + + | Race | Unknown | + + + | Ethnic Group | Unknown | + + + Author + + + | Author | [facility] | + + + | Organization | [facility] | + + + | Address | Unknown | + + + | Phone | Unavailable | + + + Support + + +---------+ + | Name | Relationship | Address | Phone | + + +---------+ + | Tutu Heck | ECON | Unknown | | + + +---------+ + Care Team Providers + +------+ + | Care Mortgage Originator Name | Role | Phone | + +------+ + PCP | Unavailable | + +------+ + Encounter Details +--------+ + + + + | Date | Type | Department | Care Team | Description | +--------+ + + + + | 06/05/ | Telephone | [facility] | Melodie Norwood, | | | 2017 | | [facility] | CALL CENTER RECRUITER | | | | | [address] | | | | | | [place] | | | | | | [address] | | | | | | [phone] | | | +--------+ + + + [...]
--- OUTSIDE RECORDS SUMMARY | ~2017-07-05 | XMS | Clinical Summary ---
Demographics + + + | Address | [address] | | | [place] [address] | + + + | Home Phone | | + + + | Preferred Language | Unknown | + + + | Marital Status | Single | + + + | Latter Day Affiliation | UNK | + + + [...] Team Providers + +------+ + | Care Web Search Evaluator Name | Role | Phone | + +------+ + | No Pcp Per Patient | PP | Unavailable | + +------+ + Source Comments JENNIFER is fully live on both EpicCare Ambulatory and EpicCare InPatient.[facility] Allergies + + + + + [...]
--- OUTSIDE RECORDS SUMMARY | ~2017-07-05 | XMS | Encounter Summary ---
Demographics + + + | Address | [address] | | | [place] [address] | + + + | Home Phone | | + + + | Preferred Language | Unknown | + + + | Marital Status | | + + + | Anglican Affiliation | Unknown | + + + | Race | Unknown | + + + | Ethnic Group | Unknown | + + + Author + + + | Author | [facility] | + + + | Organization | [facility] | + + + | Address | Unknown | + + + | Phone | Unavailable | + + + Support + + +---------+ + | Name | Relationship | Address | Phone | + + +---------+ + | Tutu Heck | ECON | Unknown | | + + +---------+ + Care Team Providers + +------+ + | Care Production Machine Operator Name | Role | Phone | + +------+ + PCP | Unavailable | + +------+ + Encounter Details +--------+ + + + + | Date | Type | Department | Care Team | Description | +--------+ + + + + | 05/30/ | Telephone | [facility] | Yolis Bee, | | | 2017 | | [facility] | DATA CENTER TECHNICIAN | | | | | [address] | | | | | | [place] | | | | | | [address] | | | | | | [phone] | | | +--------+ + + + [...]
--- OUTSIDE RECORDS SUMMARY | ~2017-07-05 | XMS | Encounter Summary ---
Demographics + + + | Address | [address] | | | [place] [address] | + + + | Home Phone | | + + + | Preferred Language | Unknown | + + + | Marital Status | | + + + | Hinduism Affiliation | Unknown | + + + | Race | Unknown | + + + | Ethnic Group | Unknown | + + + Author + + + | Author | [facility] | + + + | Organization | [facility] | + + + | Address | Unknown | + + + | Phone | Unavailable | + + + Support + + +---------+ + | Name | Relationship | Address | Phone | + + +---------+ + | Tutu Heck | ECON | Unknown | | + + +---------+ + Care Team Providers + +------+ + | Care Property Claims Manager Name | Role | Phone | + +------+ + PCP | Unavailable | + +------+ + Encounter Details +--------+ + + + + | Date | Type | Department | Care Team | Description | +--------+ + + + + | 05/08/ | Telephone | [facility] | Melodie Norwood, | | | 2017 | | [facility] | VALVE ASSEMBLER | | | | | [address] | | | | | | [place] | | | | | | [address] | | | | | | [phone] | | | +--------+ + + + [...]
--- OUTSIDE RECORDS SUMMARY | ~2017-07-05 | XMS | Clinical Summary ---
Demographics + + + | Address | [address] | | | [place] [address] | + + + | Home Phone | | + + + | Preferred Language | Unknown | + + + | Marital Status | | + + + | Mandaeism Affiliation | Unknown | + + + | Race | Unknown | + + + | Ethnic Group | Unknown | + + + Author + + + | Author | [facility] | + + + | Organization | [facility] | + + + | Address | Unknown | + + + | Phone | Unavailable | + + + Support + + +---------+ + | Name | Relationship | Address | Phone | + + +---------+ + | Tutu Heck | ECON | Unknown | | + + +---------+ + Care Team Providers + +------+ + | Care Machine Set Up Name | Role | Phone | + [...] | | | | | | | [place] 1 mL (1 mg) in | | [...] | | | 2017 | | | COMMUNITY LIVING COACH | | +--------+ + + + + | 05/30/ | Telephone | | Yolis Bee, | | | 2017 | | | MAINTENANCE CLERK | | +--------+ + + + + | 05/20/ | Telephone | | Melodie Norwood, | | 2017 | | | COMMUNITY LIVING COACH | | +--------+ + + + + | 05/08/ | Telephone | Melodie Hadley, | | | 2017 | | | COMMUNITY LIVING COACH | | +--------+ + + + + [...] + + + | | LIZABETH BEHZAD [facility] [place] [address] | + + + + + | [...] | | | | | | | [address] | + +--------+ +------+ + + + [...] | | | Admini | | | 7472 | [id number] | | | strati | | | | | | | on | | | | | + +--------+ +--------+ + +
--- OUTSIDE RECORDS SUMMARY | ~2017-07-05 | XMS | Clinical Summary ---
Demographics + + + | Address | [address] | | | [place] [address] | + + + | Home Phone | | + + + | Preferred Language | Unknown | + + + | Marital Status | | + + + | Mu-Ism Affiliation | Unknown | + + + | Race | Unknown | + + + | Ethnic Group | Unknown | + + + Author + + + | Author | [facility] | | | and [place] | + + + | Organization | [facility] | | | and [place] | + + + | Address | Unknown | + + + | Phone | Unavailable | + + + Support + + +---------+ + | Name | Relationship | Address | Phone | + + +---------+ + | CASSIDY LUZ ECON | Unknown | | + + +---------+ + Care Team Providers + +------+ + | Care Roll Slicing Machine Tender Name | Role | Phone [...]
--- OUTSIDE RECORDS SUMMARY | ~2017-07-05 | XMS | Clinical Summary ---
Demographics + + + | Address | [address] | | | [place] [address] | + + + | Home Phone | | + + + | Preferred Language | Unknown | + + + | Marital Status | | + + + | Samaritan Affiliation | Unknown | + + + | Race | Unknown | + + + | Ethnic Group | Unknown | + + + Author + + + | Author | [facility] | + + + | Organization | [facility] | + + + | Address | Unknown | + + + | Phone | Unavailable | + + + Support + + +---------+ + | Name | Relationship | Address | Phone | + + +---------+ + | Tutu Heck | ECON | Unknown | | + + +---------+ + Care Team Providers + +------+ + | Care Institute Scientist Name | Role | Phone | [...] | | | | | | | [place] 1 mL (1 mg) in | | [...] | | | 2017 | | | COMPUTER LAB AIDE | | +--------+ + + + + | 05/30/ | Telephone | | Yolis Bee, | | | 2017 | | | PHYSICAL THER | | +--------+ + + + + | 05/20/ | Telephone | | Melodie Norwood, | | 2017 | | | COMPUTER LAB AIDE | | +--------+ + + + + | 05/08/ | Telephone | Melodie Hadley, | | | 2017 | | | COMPUTER LAB AIDE | | +--------+ + + + + [...] + + + | | LIZABETH BEHZAD [facility] [place] [address] | + + + + + | [...] | | | | | | | [address] | + +--------+ +------+ + + + [...] | | | Admini | | | 0312 | [address] | | | strati | | | | | | | on | | | | | + +--------+ +--------+ + +
--- OUTSIDE RECORDS SUMMARY | ~2017-07-05 | XMS | Encounter Summary ---
Demographics + + + | Address | [address] | | | [place] [address] | + + + | Home Phone | | + + + | Preferred Language | Unknown | + + + | Marital Status | | + + + | Confucianism Affiliation | Unknown | + + + | Race | Unknown | + + + | Ethnic Group | Unknown | + + + Author + + + | Author | [facility] | + + + | Organization | [facility] | + + + | Address | Unknown | + + + | Phone | Unavailable | + + + Support + + +---------+ + | Name | Relationship | Address | Phone | + + +---------+ + | Tutu Heck | ECON | Unknown | | + + +---------+ + Care Team Providers + +------+ + | Care Website Admin Name | Role | Phone | + +------+ + PCP | Unavailable | + +------+ + Encounter Details +--------+ + + + + | Date | Type | Department | Care Team | Description | +--------+ + + + + | 06/06/ | Ancillary | [facility] | See, Medical | Pain | | 2018 | Orders | [facility] Xray | Record | | | | | [address] | | | | | | [place] [address] | | | | | | [phone] | | | +--------+ + + + [...] Laboratory | + + + | | [facility] [address] [place] [address] | + + + + + | Narrative | + + | This is a non-reportable procedure without a radiologist report and is used for | | image storage only | + + in this encounter Visit Diagnoses + + | Diagnosis | + + | Pain | + + | Generalized pain | + +"
--- OUTSIDE RECORDS SUMMARY | ~2017-07-05 | XMS | Encounter Summary ---
Demographics + + + | Address | [address] | | | [place] [address] | + + + | Home Phone | | + + + | Preferred Language | Unknown | + + + | Marital Status | | + + + | Congregational Affiliation | Unknown | + + + | Race | Unknown | + + + | Ethnic Group | Unknown | + + + Author + + + | Author | [facility] | + + + | Organization | [facility] | + + + | Address | Unknown | + + + | Phone | Unavailable | + + + Support + + +---------+ + | Name | Relationship | Address | Phone | + + +---------+ + | Tutu Heck | ECON | Unknown | | + + +---------+ + Care Team Providers + +------+ + | Care Senior Strategy Analyst Name | Role | Phone | + +------+ + PCP | Unavailable | + +------+ + Encounter Details +--------+ + + + + | Date | Type | Department | Care Team | Description | +--------+ + + + + | 06/06/ | Hospital | [facility] PHYSICIAN | See, Medical | Pain | | 2018 | Encounter | [facility] | Record | | | | | RADIOLOGY [address] | [address] | | | | | | [place] [address] | | | | | | [phone] | | | +--------+ + + + [...] | | | | | | | [place] 1 mL (1 mg) in | | [...] Laboratory | + + + | | [facility] [address] [place] [address] | + + + + + | Narrative | + + | This is a non-reportable procedure without a radiologist report and is used for | | image storage only | + + in this encounter Visit Diagnoses + + | Diagnosis | + + | Pain | + + | Generalized pain | + +"
--- OUTSIDE RECORDS SUMMARY | ~2017-07-05 | XMS | Encounter Summary ---
Demographics + + + | Address | [address] | | | [place] [address] | + + + | Home Phone | | + + + | Preferred Language | Unknown | + + + | Marital Status | | + + + | Rastafari Affiliation | Unknown | + + + | Race | Unknown | + + + | Ethnic Group | Unknown | + + + Author + + + | Author | [facility] | + + + | Organization | [facility] | + + + | Address | Unknown | + + + | Phone | Unavailable | + + + Support + + +---------+ + | Name | Relationship | Address | Phone | + + +---------+ + | Tutu Heck | ECON | Unknown | | + + +---------+ + Care Team Providers + +------+ + | Care Hvac Project Manager Name | Role | Phone | + +------+ + PCP | Unavailable | + +------+ + Encounter Details +--------+ + + + + | Date | Type | Department | Care Team | Description | +--------+ + + + + | 05/20/ | Telephone | [facility] | Melodie Norwood, | | | 2017 | | [facility] | ANIMAL PATHOLOGY TEACHER | | | | | [address] | | | | | | [place] | | | | | | [address] | | | | | | [phone] | | | +--------+ + + + [...]
--- OUTSIDE RECORDS SUMMARY | ~2017-07-05 | XMS | Encounter Summary ---
Demographics + + + | Address | [address] | | | [place] [address] | + + + | Home Phone | | + + + | Preferred Language | Unknown | + + + | Marital Status | | + + + | Hinduism Affiliation | Unknown | + + + | Race | Unknown | + + + | Ethnic Group | Unknown | + + + Author + + + | Author | [facility] | + + + | Organization | [facility] | + + + | Address | Unknown | + + + | Phone | Unavailable | + + + Support + + +---------+ + | Name | Relationship | Address | Phone | + + +---------+ + | Tutu Heck | ECON | Unknown | | + + +---------+ + Care Team Providers + +------+ + | Care Brim Curler Name | Role | Phone | + +------+ + PCP | Unavailable | + +------+ + Encounter Details +--------+ + + + + | Date | Type | Department | Care Team | Description | +--------+ + + + + | 06/05/ | Telephone | [facility] | Melodie Norwood, | | | 2017 | | [facility] | PEST CONTROL SPECIALIST | | | | | [address] | | | | | | [place] | | | | | | [address] | | | | | | [phone] | | | +--------+ + + + [...]
--- OUTSIDE RECORDS SUMMARY | ~2017-07-05 | XMS | Clinical Summary ---
Demographics + + + | Address | [address] | | | [place] [address] | + + + | Home Phone | | + + + | Preferred Language | Unknown | + + + | Marital Status | | + + + | Baptist Affiliation | Unknown | + + + | Race | Unknown | + + + | Ethnic Group | Unknown | + + + Author + + + | Author | [facility] | | | and [facility] | + + + | Organization | [facility] | | | and [...] Team Providers + +------+ + | Care Quantitative Consultant Name | Role | Phone | [...]
--- OUTSIDE RECORDS SUMMARY | ~2017-07-05 | XMS | Encounter Summary ---
Demographics + + + | Address | [address] | | | [place] [address] | + + + | Home Phone | | + + + | Preferred Language | Unknown | + + + | Marital Status | | + + + | Worship Affiliation | Unknown | + + + | Race | Unknown | + + + | Ethnic Group | Unknown | + + + Author + + + | Author | [facility] | + + + | Organization | [facility] | + + + | Address | Unknown | + + + | Phone | Unavailable | + + + Support + + +---------+ + | Name | Relationship | Address | Phone | + + +---------+ + | Tutu Heck | ECON | Unknown | | + + +---------+ + Care Team Providers + +------+ + | Care Certified Welder Name | Role | Phone | + +------+ + PCP | Unavailable | + +------+ + Encounter Details +--------+ + + + + | Date | Type | Department | Care Team | Description | +--------+ + + + + | 06/05/ | Telephone | [facility] | Melodie Norwood, | | | 2017 | | [facility] | BRANCH CUSTOMER SERVICE REPRESENTATIVE | | | | | [address] | | | | | | [place] | | | | | | [address] | | | | | | [phone] | | | +--------+ + + + [...]
--- OUTSIDE RECORDS SUMMARY | ~2017-07-05 | XMS | Clinical Summary ---
Demographics + + + | Address | [address] | | | [place] [address] | + + + | Home Phone | | + + + | Preferred Language | Unknown | + + + | Marital Status | Single | + + + | Jain Affiliation | UNK | + + + [...] Team Providers + +------+ + | Care Decision Science Analyst Name | Role | Phone | + +------+ + | No Pcp Per Patient | PP | Unavailable | + +------+ + Source Comments JENNIFER is fully live on both EpicCare Ambulatory and EpicCare InPatient.[facility] Allergies + + + + + + [...]
--- NOTE | 2017-07-05 20:35 | EKG ---
[facility] [address] [place] [address] Signed Sinus rhythm with premature atrial complexes Otherwise normal ECG When compared with ECG of 21-MAY-2017 14:46, premature atrial complexes are now present Confirmed by AURY QUEZADA MD ([id number]) on 07/05/2017 8:35:30 PM Electronically Signed By: AURY QUEZADA MD 07/05/17 2035 PATIENT NAME: MANASASUSAN Electrocardiogram DATE OF : 38 PHYSICIAN: AURY QUEZADA MD REPORT #: [id number] REPORT IS CONFIDENTIAL AND NOT TO BE RELEASED WITHOUT AUTHORIZATION
--- NOTE | 2017-07-05 20:45 | NUR ---
PATIENTS ADMISSION COMPLETED. PATIENTS BOLUS STARTED PER ORDER. PATIENT DENIES ANY [AIN OR NAUSEA. PATIENT ORINETED TO ROOM, UNIT AND FLOOR. PATIENT ASSISTED TO USE URINAL. PATIENT WAS ABLE TO VOID. PATIENT DENIES ANY NEEDS AT THIS TIME. CALL LIGHT IN REACH.
--- NOTE | 2017-07-05 21:15 | NUR ---
PATIENT ASSESSMENT COMPLETED. AAOX4. SPEECH IS SLIGHTLY DIFFICULT TO UNDERSTAND, I'M TOLD THIS IS BASELINE. PATIENT'S MAIN CONCERN IS NUMBNESS ON THE LATERAL ASPECT OF HIS RIGHT ARM AND GENERALIZED ON HIS RIGHT LEG. HE STATES THIS NUMBNESS IS "JUST ON THE SKIN", HE CAN FEEL PRESSURE. STATES HE HAS BEEN HAVING THIS ISSUE FOR MONTHS AND "NO ONE WANTS TO FIX IT". PEDAL PULSES ARE WEAK BILATERALLY. RIGHT RADIAL IS WEAKER AND LEFT RADIAL STRONG. PT HAS CHRONIC BACK PAIN, RATED 5/10 RIGHT NOW. HE WAS ABLE TO MOVE HIMSELF FROM THE STRETCHER INTO THE BED WITH SBA. HE IS WEAK BUT STRENGTH IS EQUAL BILATERALLY. HIS RIGHT EYE DROOPS, HE STATES THIS HAS BEEN HAPPENING FOR YEARS. VISION IS POOR WITHOUT HIS GLASSES THAT ARE ASSUMED TO BE AT HOME. SKIN IS GROOSLY INTACT. TOLERATING ROOM AIR, LUNGS ARE CLEAR THROUGHOUT BUT DIMINISHED IN THE BASES BILATERALLY. ABD IS MILDLY DISTENDED, NONTENDER, BOWEL SOUNDS HYPOACTIVE. PATIENT TOLERATING SIPS OF WATER AND ASKING FOR COFFEE. PATIENT STATES IT HAS BEEN SEVERAL DAYS SINCE HE HAS A BM. 1+ EDEMA NOTED IN [place] LOWER EXTREMITIES.
--- NOTE | 2017-07-05 22:00 | NUR ---
MEDS GIVEN PER ORDER. PATIENT WAS NOT HAPPY ABOUT CHECKING HIS BLOOD SUGAR OR RECEIVING INSULIN. EDUCATED HIM ON STRICT DM CONTROL WHILE IN THE HOSPITAL AND HE AGREED TO RECEIVE IT. BLOOD GLUCOSE WAS 178, RECEVIED 2 UNITS NOVOLOG.
--- NOTE | 2017-07-05 22:51 | NUR ---
PER REQUEST OF PT I BROUGHT HIM SOME DECAF BLACK COFFEE. PT NEEDS NOTHING ELSE AT THIS TIME. BEDSIDE TABLE AND CALL LIGHT WITHIN REACH.
--- NOTE | 2017-07-06 | NUR ---
PATIENT ABLE TO TOLERATE WATER AND COFFEE. REQUESTING FOOD. CHICKEN NOODLE SOUP PROVIDED, PATIENT TOLERATED THIS WELL. IV BOLUS FINISHED. IV SITE IN RIGHT AC IS WORKING WELL BUT SLIGHTLY LEAKING. REENFORCED WITH TAPE. NEW IV STARTED IN RIGHT FOREARM. PATIENT WAS WEARING A LARGE METAL BRACELET ON HIS RIGHT WRIST WHICH HE REMOVED TO ALLOW FOR THE IV. UNDER THE BRACELET WAS A SMALL BLISTER. PATIENT DENIES PAIN AT THE SITE AND SKIN IS INTACT. LEFT OPEN TO AIR.
--- NOTE | 2017-07-06 01:07 | NUR ---
DISCUSSED ORDERS FOR MRI WITH PATIENT. HE WAS ABLE TO ANSWER THE MAJORITY OF THE QUESTIONS REQUIRED BUT IS UNSURE ABOUT THE SURGERY THAT WAS DONE ON HIS LEFT KNEE. HE DOESN'T KNOW IF IT WAS A FULL REPLACEMENT OR INJURY REPAIR. HE THINKS IT WAS DONE AT [facility]. PATIENT'S NEURO CHECK REMAINS UNCHANGED. RIGHT SIDED LEAN IN THE BED. RIGHT EYE DROOP. SLIGHTLY SLURRED SPEECH. NUMBNESS ON RIGHT ARM AND LEG, UNABLE TO FEEL LIGHT TOUCH BUT CAN FEEL SHARP TOUCH AND PRESSURE. PATIENT IS OVERALL EXPERIENCING WEAKNESS BUT HIS STRENGTH IS EQUAL BILATERALLY. HE IS ORIENTED X4, BUT FORGETFUL ON SOME DETAILS RELATED TO HIS HISTORY. PATIENT IS PLESANT AND MAKING JOKES. PROVIDED DENTURE CUP FOR HIM AND HE WAS ABLE TO REMOVE DENTURES AND CLEAN THEM HIMSELF. PATIENT HAS BEEN USING THE URNAL IN BED WITHOUT ASSISTANCE, URINE OUTPUT QS.
--- NOTE | 2017-07-06 02:00 | NUR ---
PATIENT REQUEST ASSISTANCE TO BATHROOM. 1PA HOLDING PATIENT'S HAND FOR STABILITY. PATIENT DOES NOT WANT TO USE A WALKER. HE THOUGHT HE HAD HIS CANE IN THE ED BUT EMS DID NOT BRING IT IN. PATIENT REQUEST THAT HIS CAREGIVER BRING IT IN TOMORROW. PATIENT LEFT THAT HE MIGHT NEED TO HAVE A BM, BUT WAS UNABLE TO. ASSURED HIM WE WOULD START BOWEL CARE IN THE MORNING. PATIENT RETURNED TO BED. CALL LIGHT IN REACH.
--- NOTE | 2017-07-06 02:16 | NUR ---
VITALS AND I&OS DONE AND CHARTED. BEDSIDE TABLE AND CALL LIGHT WITHIN REACH. PT NEEDS NOTHING ELSE AT THIS TIME.
--- NOTE | 2017-07-06 06:40 | NUR ---
PATIENT ARRIVED LAST NIGHT AROUND 2029. RECEIVED IV BOLUS PER ORDER AND IV MAINTANCE FLUIDS. URINE OUTPUT QS. AAOX3. REPORTING NUMBNESS IN RIGHT UPPER AND LOWER EXTREMITY. GENERALIZED WEAKNESS, BUT EQUAL BILATERALLY. SBA UP TO BATHROOM. PATIENT HUNCHES UP IN BED AND WHEN STANDING, CLAIMS TO HAVE SCOLIOSIS WHICH WAS NOT INCLUDED IN H&P. TOLERATING ROOM AIR, PLACED ON 1L NC WHILE SLEEPING PER PATIENT REQUEST. USES CPAP AT HOME. LUNGS ARE CLEAR. ABD IS MILDLY DISTENDED AND PATIENT FEELS CONSTIPATED, UNKNOWN LAST BM. BOWEL CARE ORDERED FOR THIS AM. PAIN HAS TOLERABLE, CHRONIC BACK AND JOINT PAIN. SPEECH SLIGHTLY GARBLED, BUT ABLE TO UNDERSTAND PATIENT. USES CALL LIGHT APPROPRIATELY.
--- NOTE | 2017-07-06 07:51 | NUR ---
BEDSIDE REPORT RECEIVED FROM ALONDRA DUCKWORTH. WHITE BOARD UPDATED. PATIENT SLEEPING IN BED WITH LIGHTS OFF NOW. MRI PLANNED FOR 0800. NEURO CHECKS PLANNED FOR Q4H. 1L [address] FOR REQUEST FROM PATIENT HE WEARS CPAP AT HOME FOR [place]HA. LR INFUSING AT 100ML/HR.
--- NOTE | 2017-07-06 08:44 | NUR ---
ORDERED PATIENT'S BREAKFAST. PATIENT HAD TO URINATE. STOOD AT BEDSIDE AND USED URINAL. WASHED HANDS IN BATHROOM AND PUT DENTURES IN MOUTH. PATIENT UP IN CHAIR NOW WITH CALL LIGHT IN REACH. LEGS ELEVATED AND BELONGINGS WITHIN REACH. REPORTS 6/10 PAIN IN BACK. PAIN IN RIGHT HIP WHEN PATIENT SAT IN CHAIR. PILLOWS UNDERNEATH BUTTOCKS AND BEHIND BACK FOR COMFORT. BLANKET ON LAP AND BEDSIDE TABLE PLACED NEXT TO CHAIR. MIRALAX IN APPLE JUICE AND MAG CITRATE IN REACH FOR PATIENT. PATIENT REPORTS NO BM FOR SEVERAL DAYS. WILL ENCOURAGE STOOL SOFTENERS.
--- NOTE | 2017-07-06 09:56 | NUR ---
PT OFF FLOOR TO MRI SCAN
--- NOTE | 2017-07-06 10:04 | NUR ---
PT IS CURRENTLY HAVING AN MRI DONE, WILL GET VITALS UPON RETURN.
[2017-07-06] MEDS ORDERED: NORCO 10-325 T1 EACH PO (12:01)
--- NOTE | 2017-07-06 13:25 | NUR ---
pt ambulated halls with church business administrator. used FWW.
== END 2017-07-06 14:55 | disposition home or self-care (01) ==
LOC: ED 15:46 → MS 15:47
PROVIDERS: ADMIT Internal Medicine
DX: G92 Toxic encephalopathy (principal); I25.10 Atherosclerotic heart disease of native coronary artery without angina pectoris; E11.9 Type 2 diabetes mellitus without complications; E78.5 Hyperlipidemia, unspecified; F20.9 Schizophrenia, unspecified; G89.4 Chronic pain syndrome; I10 Essential (primary) hypertension; F17.200 Nicotine dependence, unspecified, uncomplicated; J43.1 Panlobular emphysema; Z85.118 Personal history of other malignant neoplasm of bronchus and lung; Z88.0 Allergy status to penicillin; Z88.8 Allergy status to other drugs, medicaments and biological substances; Z79.84 Long term (current) use of oral hypoglycemic drugs; Z79.82 Long term (current) use of aspirin; Z79.891 Long term (current) use of opiate analgesic; Z79.51 Long term (current) use of inhaled steroids; Z79.899 Other long term (current) drug therapy
CPT/HCPCS: 70450; 70551; 71045; 72125; 80053; 81001; 85025; 85610; 85651; 93005; 93010; 94640; 96361; 96372; 96374; 99285; G0378; J1650; J2310; J7040; J7120

== ENCOUNTER 2018-08-24 13:00 | Emergency (ER) | payer OTHER ==
[~2018-08-24] VITALS: Ht 172.7 cm; Wt 64.9 kg
--- OUTSIDE RECORDS SUMMARY | ~2018-08-24 | XMS | Encounter Summary ---
Demographics + + + | Address | [address] | | | [place] [address] | + + + | Home Phone | | + + + | Preferred Language | Unknown | + + + | Marital Status | Single | + + + | Mormonism Affiliation | UNK | + + + | Race | Unknown | + + + | Ethnic Group | Other Race | + + + Author + + + | Author | [facility] | + + + | Organization | [facility] | + + + | Address | Unknown | + + + | Phone | Unavailable | + + + Care Team Providers + +------+ + | Care Packing Machine Feeder Name | Role | Phone | + +------+ + | No Pcp Per Patient | PCP | Unavailable | + +------+ + Reason for Visit + + + | Reason | Comments | + + + | On Treatment Visit | | | (OTV) | | + + + Encounter Details +--------+---------+ + + + | Date | Type | Department | Care Team | Description | +--------+---------+ + + + | 04/17/ | Office | Radiation Oncology | Ken Milton, | Radiotherapy | | 2013 | Visit | at [facility] [address] | [address] | (Primary Dx) | | | | [address] | [facility] | | | | | Jesse [address]lon | [place], [place] | | | | | [place], | [address] | | | | | [place] [address] | [phone] | | | | | [phone] | | | +--------+---------+ + + + Social History + +-------+ +--------+------+ | Tobacco Use | Types | Packs/Day | Years | Date | | | | | Used | | + +-------+ +--------+------+ | Never Assessed | | | | | + +-------+ +--------+------+ + + + | Sex Assigned at | Date Recorded | | | | + + + | Not on file | | + + + + + + + | Job Start Date | Occupation | Industry | + + + + | Not on file | Not on file | Not on file | + + + + + + + + | Travel History | Travel Start | Travel End | + + + + + + | No recent travel history available. | + + documented as of this encounter Last Filed Vital Signs + + + + + | Vital Sign | Reading | Time Taken | Comments | + + + + + | Blood Pressure | 113/67 | 04/17/2013 2:29 PM | | | | | PST | | + + + + + | Pulse | 75 | 04/17/2013 2:29 PM | | | | | PST | | + + + + + | Temperature | 36.5 C (97.7 F) | 04/17/2013 2:29 PM | | | | | PST | | + + + + + | Respiratory Rate | - | - | | + + + + + | Oxygen Saturation | 95% | 04/17/2013 2:29 PM | | | | | PST | | + + + + + | Inhaled Oxygen | - | - | | | Concentration | | | | + + + + + | Weight | 89.4 kg (197 lb 1.6 | 04/17/2013 2:29 PM | | | | oz) | PST | | + + + + + | Height | - | - | | + + + + + | Body Mass Index | - | - | | + + + + + documented in this encounter Progress Notes Ken Milton MD - 04/17/2013 2:54 PM PSTFormatting of this note might be different f rom the original. Radiation Oncology - On Treatment Visit Note ID: 73 y.o. 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 He is here today during treatme nt for an on treatment visit. Planned Total RT Dose: 50 Gy. Current Fraction: 11 of 20. Concurrent Chemotherapy: n/a SUBJECTIVE: Note a "funny sensation at the base of my tongue", this is a new complaint. Has a daily chest "tightness" after every RT fraction, lasting 4-8 hrs, resolves on its own . OBJECTIVE: Vital Signs: BP 113/67 | Pulse 75 | Temp (Src) 36.5 C (97.7 F) (Oral) | Wt 89.404 kg (1 97 lb 1.6 oz) | SpO2 95% Pain Score: 0 Wt Readings from Last 3 Encounters: 04/17/13 89.404 kg (197 lb 1.6 oz) 04/03/13 89.54 kg (197 lb 6.4 oz) Renny Moss Sr.'s mode of transportation is wheelchair. Gen: Alert, oriented x 3; the pt certainly does not seem to be any distress at this time; c elaine RRate: 16/min, non-labored. Skin: Dry COR:RRRhythm ASSESSMENT/PLAN: Stable I have told that pt that if the atypical sensations that he's described change, then to go to the ER The patient's chart and films were reviewed. Cont RT. KEN MILTON MD [email or web address] - 04/17 2:22 PM PST Nursing Note Patient here for an On Treatment Visit. Completed 11 fractions of a planned 20. Current dose 2750 cGy of total 5000 cGy. Vitals/Pain Level: BP 113/67 | Pulse 75 | Temp (Src) 36.5 C (97.7 F) (Oral) | Wt 89.404 kg (197 lb 1.6 oz) | SpO2 95% Pain Score: Wt Readings from Last 3 Encounters: 04/17/13 89.404 kg (197 lb 1.6 oz) 04/03/13 89.54 kg (197 lb 6.4 oz) Subjective: Pt reports "medium"/10 fatigue level. Pt c/o voice hoarseness, intermittent di fficulty swallowing and intermittent yellowish productive cough. Reports "feeling a fullnes s after each treatment but goes away after a few hours." Pt denies fever, sob, nausea/vomit ing. Fair appetite. Objective: Pt alert, oriented, and transport via scooter. Accompanied by self. Residing a [facility]. No acute distress noted. Nursing Plan: Continue supportive care. Will continue to monitor. documented in this encounter Plan of Treatment Not on filedocumented as of this encounter Visit Diagnoses + + | Diagnosis | + + | Radiotherapy - Primary | + + documented in this encounter
--- OUTSIDE RECORDS SUMMARY | ~2018-08-24 | XMS | Encounter Summary ---
Demographics + + + | Address | [address] | | | [place] [address] | + + + | Home Phone | | + + + | Preferred Language | Unknown | + + + | Marital Status | Single | + + + | Yazdanism Affiliation | UNK | + + + | Race | Unknown | + + + | Ethnic Group | Other Race | + + + Author + + + | Author | [facility] | + + + | Organization | [facility] | + + + | Address | Unknown | + + + | Phone | Unavailable | + + + Care Team Providers + +------+ + | Care Shoe Repairer Name | Role | Phone | + +------+ + PCP | Unavailable | + +------+ + Reason for Referral Diagnostic Testing (Routine) +--------+--------+ + + + + | Status | Reason | Specialty | Diagnoses / | Referred By | Referred To | | | | | Procedures | Contact | Contact | +--------+--------+ + + + + | Closed | | Radiology | Diagnoses | Frankie, | [facility] | | | | | Malignant | Roldan Nath MD | [address] | | | | | neoplasm of | [address] | [address] | | | | | bronchus and | [facility] [address] | | | | | lung, | [address] | [address] | | | | | unspecified | [place], | Pavilion | | | | | site | [place] [address] | [place] | | | | | Procedures | Phone: | Pavilion | | | | | [address] SKULL | [phone] | [place], [place] | | | | | B[place] | Fax: | [phone] | | | | | [place] | [phone] | Phone: | | | | | | | [phone] | | | | | | | Fax: | | | | | | | [phone] | +--------+--------+ + + + + Reason for Visit Diagnostic Testing (Routine) +--------+--------+ + + + + | Status | Reason | Specialty | Diagnoses / | Referred By | Referred To | | | | | Procedures | Contact | Contact | +--------+--------+ + + + + | Closed | | Radiology | Diagnoses | Frankie, | Rad [facility] | | | | | Malignant | Roldan Nath MD | [address] | | | | | neoplasm of | [address] | [address] | | | | | bronchus and | [facility] | [address] | | | | | lung, | [address] | [address] | | | | | unspecified | [place], | Pavilion | | | | | site | [place] [address] | [address] | | | | | Procedures | Phone: | Pavilion | | | | | [address]ULL | [phone] | [place], [place] | | | | | B[address] TO | Fax: | [address] | | | | | [place] | [phone] | Phone: | | | | | | | [phone] | | | | | | | Fax: | | | | | | | [phone] | +--------+--------+ + + + + Encounter Details +--------+ + + + + | Date | Type | Department | Care Team | Description | +--------+ + + + + | 09/11/ | Hospital | Radiation Oncology | | | | 2011 | Encounter | at [facility] [address] | | | | | | [address] | | | | | | [address] | | | | | | [address] | | | | | | [place], | | | | | | [place] [address] | | | | | | [phone] | | | +--------+ + + + [...] + + documented as of this encounter Plan of Treatment + +---------+--------+ + + | Name | Type | Priori | Associated Diagnoses | Date/Time | | | | ty | | | + +---------+--------+ + + | [address] [place] [place] | Imaging | Routin | Malignant neoplasm | 09/12/2011 2:46 PM | | [place] | | e | of bronchus and | PDT | | | | | lung, unspecified | | | | | | site | | + +---------+--------+ + + documented as of this encounter Procedures + +--------+ + + + | Procedure Name | Priori | Date/Time | Associated Diagnosis | Comments | | | ty | | | | + +--------+ + + + | ORDERS OTHER | | 09/12/2011 | | Results for this | | | | 12:00 AM | | procedure are in the | | | | PDT | | results section. | + +--------+ + + + | ORDERS OTHER | | 09/12/2011 | | Results for this | | | | 12:00 AM | | procedure are in the | | | | PDT | | results section. | + +--------+ + + + documented in this encounter Results ORDERS OTHER (09/12/2011 12:00 AM PDT) + + + | Narrative | Performed At | + + + | | | + + + + + | Transcriptions | + + | Israel Garcia - 11/16/2011 11:41 AM PDT | + + ORDERS OTHER (09/12/2011 12:00 AM PDT) + + + | Narrative | Performed At | + + + | | | + + + + + | Transcriptions | + + | Israel Garcia - 10/01/2011 7:14 AM PDT | + + documented in this encounter Visit Diagnoses + + | Diagnosis | + + | Malignant neoplasm of bronchus and lung, unspecified site | + + documented in this encounter"
--- OUTSIDE RECORDS SUMMARY | ~2018-08-24 | XMS | Encounter Summary ---
Demographics + + + | Address | [address] | | | [place] [address] | + + + | Home Phone | | + + + | Preferred Language | Unknown | + + + | Marital Status | Single | + + + | Restoration Affiliation | UNK | + + + | Race | Unknown | + + + | Ethnic Group | Other Race | + + + Author + + + | Author | [facility] | + + + | Organization | [facility] | + + + | Address | Unknown | + + + | Phone | Unavailable | + + + Care Team Providers + +------+ + | Care Wood Cabinetmaker Name | Role | Phone | + +------+ + | No Pcp Per Patient | PCP | Unavailable | + +------+ + Reason for Visit + + + | Reason | Comments | + + + | RT Simulation Note | | + + + Encounter Details +--------+ + + + + | Date | Type | Department | Care Team | Description | +--------+ + + + + | 03/30/ | Documentati | Radiation Oncology | Ken Milton, | RT Simulation Note | | 2013 | on | at [facility] [address] | MD [address] [facility] | | | | | [facility] | [facility] | | | | | [address] | [place], [place] | | | | | [place], | [address] | | | | | [place] [address] | [phone] | | | | | [phone] | | | +--------+ + + + [...] filedocumented as of this encounter Visit Diagnoses Not on filedocumented in this encounter"
--- OUTSIDE RECORDS SUMMARY | ~2018-08-24 | XMS | Encounter Summary ---
Demographics + + + | Address | [address] | | | [place] [address] | + + + | Home Phone | | + + + | Preferred Language | Unknown | + + + | Marital Status | Single | + + + | Mandaeism Affiliation | UNK | + + + | Race | Unknown | + + + | Ethnic Group | Other Race | + + + Author + + + | Author | [facility] | + + + | Organization | [facility] | + + + | Address | Unknown | + + + | Phone | Unavailable | + + + Care Team Providers + +------+ + | Care Room Cooler Installer Name | Role | Phone | + +------+ + | No Pcp Per Patient | PCP | Unavailable | + +------+ + Encounter Details +--------+ + + + + | Date | Type | Department | Care Team | Description | +--------+ + + + + | 04/08/ | Hospital | Radiation Oncology | | | | 2013 | Encounter | at [facility] [address] | | | | | | [address] | | | | | | [address] | | | | | | [place], | | | | | | [place] [address] | | | | | | [phone] | | | +--------+ + + + [...] + + documented as of this encounter Medications at Time of Discharge + + + +---------+--------+ + | Medication | Sig | Dispensed | Refills | Start | End Date | | | | | | Date | | + + + +---------+--------+ + | albuterol 90 | Inhale 2 puffs every | | 0 | | | | mcg/actuation | four hours as | | | | | | inhalation HFA | needed. | | | | | | aerosol inhaler | | | | | | + + + +---------+--------+ + | aspirin EC 81 mg | Take 81 mg by mouth | | 0 | | | | oral tablet,delayed | once daily. | | | | | | release (DR/EC) | | | | | | + + + +---------+--------+ + | atenolol 25 mg | Take 25 mg by mouth | | 0 | | | | oral tablet | once daily. | | | | | + + + +---------+--------+ + | | Inhale 2 puffs two | | 0 | | | | budesonide-formotero | times daily. | | | | | | l 160-4.5 | | | | | | | mcg/actuation | | | | | | | inhalation HFA | | | | | | | aerosol inhaler | | | | | | + + + +---------+--------+ + | | Instill 1 drop into | | 0 | | | | carboxymethylcellulo | both eyes once | | | | | | se 0.5 % ophthalmic | daily. | | | | | | dropperette | | | | | | + + + +---------+--------+ + | cholecalciferol, | Take 2,000 Units by | | 0 | | | | Vitamin D3, 1,000 | mouth once daily. | | | | | | unit oral tablet | | | | | | + + + +---------+--------+ + | desonide 0.05 % | Apply to affected | | 0 | | | | topical cream | area two times | | | | | | | daily. Apply | | | | | | | sparingly. | | | | | + + + +---------+--------+ + | docusate sodium | Take 250 mg by mouth | | 0 | | | | 250 mg oral capsule | twice daily as | | | | | | | needed. | | | | | + + + +---------+--------+ + | ferrous sulfate | Take 325 mg by mouth | | 0 | | | | 325 mg (65 mg iron) | once daily. | | | | | | oral tablet | | | | | | + + + +---------+--------+ + | fluorouracil 5 % | Apply to affected | | 0 | | | | topical cream | area two times | | | | | | | daily. Apply to | | | | | | | lesions for 2-4 | | | | | | | weeks; complete | | | | | | | healing may nto be | | | | | | | evident for 1-2 | | | | | | | months following | | | | | | | treatment. | | | | | + + + +---------+--------+ + | gabapentin 600 mg | Take 600 mg by mouth | | 0 | | | | oral tablet | three times daily. | | | | | + + + +---------+--------+ + | gemfibrozil 600 mg | Take 600 mg by mouth | | 0 | | | | oral | two times daily. | | | | | | tabletIndications: | Indications: | | | | | | hypertriglyceridemia | HYPERTRIGLYCERIDEMIA | | | | | + + + +---------+--------+ + | guaiFENesin LA 600 | Take 600 mg by mouth | | 0 | | | | mg oral tablet | twice daily as | | | | | | extended release | needed. | | | | | + + + +---------+--------+ + | | Take 1 tablet by | | 0 | | | | HYDROcodone-acetamin | mouth three times | | | | | | ophen 5-325 mg oral | daily as needed. Not | | | | | | tablet | to exceed 10 | | | | | | | tablets per any 24 | | | | | | | hour period. (Not to | | | | | | | exceed 3250 mg of | | | | | | | acetaminophen from | | | | | | | all products per 24 | | | | | | | hour period.) | | | | | + + + +---------+--------+ + | isosorbide | Take 30 mg by mouth | | 0 | | | | mononitrate CR 30 mg | once daily. | | | | | | oral tablet | | | | | | | extended release 24 | | | | | | | hr | | | | | | + + + +---------+--------+ + | loratadine 10 mg | Take 10 mg by mouth | | 0 | | | | oral tablet | once daily. | | | | | + + + +---------+--------+ + | magnesium oxide | Take 250 mg by mouth | | 0 | | | | 250 mg oral tablet | once daily. | | | | | + + + +---------+--------+ + | metFORMIN 850 mg | Take 850 mg by mouth | | 0 | | | | oral tablet | two times daily. | | | | | + + + +---------+--------+ + | MOMETASONE FUROATE | Instill in nose two | | 0 | | | | (MOMETASONE NASL) | times daily. | | | | | + + + +---------+--------+ + | niacin 500 mg oral | Take 500 mg by mouth | | 0 | | | | tablet | once daily at | | | | | | | bedtime. | | | | | + + + +---------+--------+ + | nitroglycerin 0.4 | Place 0.4 mg under | | 0 | | | | mg sublingual | tongue every five | | | | | | tablet, sublingual | minutes as needed. | | | | | | | Do not crush. Place | | | | | | | under tongue and | | | | | | | allow to dissolve. | | | | | | | Administer every 5 | | | | | | | minutes for a | | | | | | | maximum of 3 doses | | | | | | | in 15 minutes. | | | | | + + + +---------+--------+ + | omeprazole 20 mg | Take 20 mg by mouth | | 0 | | | | oral capsule,delayed | once daily. | | | | | | release(/NEIL) | | | | | | + + + +---------+--------+ + | pravastatin 80 mg | Take 80 mg by mouth | | 0 | | | | oral tablet | once daily at | | | | | | | bedtime. | | | | | + + + +---------+--------+ + | risperiDONE 1 mg | Take 1 mg by mouth. | | 0 | | | | oral tablet | | | | | | + + + +---------+--------+ + documented as of this encounter Plan of Treatment Not on filedocumented as of this encounter Visit Diagnoses Not on filedocumented in this encounter"
--- OUTSIDE RECORDS SUMMARY | ~2018-08-24 | XMS | Encounter Summary ---
Demographics + + + | Address | [address] | | | [place] [address] | + + + | Home Phone | | + + + | Preferred Language | Unknown | + + + | Marital Status | Single | + + + | Latter-Day Affiliation | UNK | + + + | Race | Unknown | + + + | Ethnic Group | Other Race | + + + Author + + + | Author | [facility] | + + + | Organization | [facility] | + + + | Address | Unknown | + + + | Phone | Unavailable | + + + Care Team Providers + +------+ + | Care Make Ready Worker Name | Role | Phone | + +------+ + | No Pcp Per Patient | PCP | Unavailable | + +------+ + Encounter Details +--------+ + + + + | Date | Type | Department | Care Team | Description | +--------+ + + + + | 04/27/ | Hospital | Radiation Oncology | | | | 2014 | Encounter | at [facility] [address] | | | | | | [address] | | | | | | [address] | | | | | | [place], | | | | | | [place] [address] | | | | | | [phone] | | | +--------+ + + + [...]
--- OUTSIDE RECORDS SUMMARY | ~2018-08-24 | XMS | Encounter Summary ---
Demographics + + + | Address | [address] | | | [place] [address] | + + + | Home Phone [...] Author + + + | Author | [facility] | + + + | Organization | [facility] | + + + | Address | Unknown | + + + | Phone | Unavailable | + + + Care Team Providers + +------+ + | Care Classified Ad Clerk Name | Role | Phone | + +------+ + | No Pcp Per Patient | PCP | Unavailable | + +------+ + Encounter Details +--------+ + + + + | Date | Type | Department | Care Team | Description | +--------+ + + + + | 10/03/ | Office | Radiation Oncology | Ken Milton, | | | 2015 | Visit-ECX | at [place] [address] | [address] | | | | | [facility] | [facility] | | | | | Mailcode: [address] | [place], [place] | | | | | [facility] | [address] | | | | | [place], [place] | [phone] | | | | | [address] | | | | | | [phone] | | | +--------+ + + + [...] + + documented as of this encounter Progress Notes Flakita Robles - 10/05/2015 2:19 PM PDT07/18/16 RADIATION - FOLLOW UP: ID: 73yo man with history of a 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 We treated with RT alone to 50Gy in 20fx alone ending 05/01/13 as he was a poor chemotherapy candidate given limited mobility and COPD. ? Today he tells us that he has pain in his lower back from stenosis and arthritis. he has home medical care and takes a medication but it does not help. It is worse when he is sitting. He has been having trouble walking. ? His SOB is the same, his energy is ok, and he denies cough. he lost 25-30lbs on purpose. he sleeps well but reversed (awake at night, sleeping during the day). ? PE: 94% O2 sat GEN: appears older than stated age HEENT: L eye ptosis CARDIO: 2/ systolic murmur PULM: inspiratory and expiratory wheezing most prominent in the L lung MSK: walks with a cane PSYCH: slow deliberate speech, does not make eye contact with me, flat affect ? ? 06/08/15 CT CHEST WO CONTRAST FINDINGS: A total of 387 images were submitted to [facility] ([facility]). BONES: Bridging ossified anterior longitudinal ligament (DISH). Vertebral hemangioma. SOFT TISSUES: Noncontrast evaluation. Ascending aorta is 4 cm diameter. Coronary artery calcification/stents. Normal heart size. Mild left pleural thickening. No drainable pleural effusion. Chronic small amount bones pericardial fluid. 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 Mediastinal lymph nodes up to 8 mm short axis. Limited hilar evaluation without contrast. LUNGS: Mild to moderate pulmonary emphysema. Left upper lobectomy. Left chronic left upper postradiation changes. Stable scattered small subcentimeter right upper lobe and left lower lobe nodular densities. Calcified bilateral lower lobe granulomas. Stable right lower lobe 6 mm partly calcified pleural or subpleural nodule. UPPER ABDOMEN: Limited views. No nodule in the visualized portions of the adrenal glands. Pancreatic calcifications suggestive of chronic pancreatitis. IMPRESSION: Stable small bilateral lung nodules and post radiation changes in the left lung. Consider follow-up CT. ? ? A/P Stable imaging; back pain most likely from spinal stenosis and/or arthritis not from a malignancy ? 1) F/U with us in 6mo with noncontrast CT CHEST; this can be done closer to his home if that works better 2) he tells us that his home medical help will be coming again in 1 week ? documented in this enc ounter Plan of Treatment Not on filedocumented as of this encounter Visit Diagnoses Not on filedocumented in this encounter"
--- OUTSIDE RECORDS SUMMARY | ~2018-08-24 | XMS | Encounter Summary ---
Demographics + + + | Address | [address] | | | [place] [address] | + + + | Home Phone | | + + + | Preferred Language | Unknown | + + + | Marital Status | Single | + + + | Scientologist Affiliation | UNK | + + + | Race | Unknown | + + + | Ethnic Group | Other Race | + + + Author + + + | Author | [facility] | + + + | Organization | [facility] | + + + | Address | Unknown | + + + | Phone | Unavailable | + + + Care Team Providers + +------+ + | Care Program Trainer Name | Role | Phone | + [...] Description | +--------+---------+ + + + | 04/03/ | Office | Radiation Oncology | Vicenta Garcia | Radiotherapy | | 2013 | Visit | at [facility] [address] | [place], [address] [address] | (Primary Dx) | | | | [address] | [facility] [address] | | | | | Jesse Scanlon | [place] | | | | | [place], | [address] | | | | | [place] [address] | [phone] | | | | | [phone] | | | +--------+---------+ + + + [...] + + + | Blood Pressure | 112/61 | 04/03/2013 12:55 PM | | | | | PST | | + + + + + | Pulse | 77 | 04/03/2013 12:55 PM | | | | | PST | | + + + + + | Temperature | 36.1 C (97 F) | 04/03/2013 12:55 PM | | | | | PST | | + + + + + | Respiratory Rate | - | - | | + + + + + | Oxygen Saturation | 97% | 04/03/2013 12:55 PM | | | | | PST | | + + + + + | Inhaled Oxygen | - | - | | | Concentration | | | | + + + + + | Weight | 89.5 kg (197 lb 6.4 | 04/03/2013 12:55 PM | | | | oz) | PST | | + + + + + | Height | - | - | | + + + + + | Body Mass Index | - | - | | + + + + + documented in this encounter Patient Instructions Patient Instructions Sanju Perez MD - 04/03/2013 1:09 PM PST-continue radiation -please feel free to contact us with further questions: [phone] documented in this encounter Progress Notes Vicenta Garcia MD - 04/03/2013 2:21 PM PSTAttending Teaching Statement I saw and examined Renny Billybrayan Sr. and discussed his management with the resident . I have reviewed the RT treatment plan this week. I reviewed this week's port films and imaging. Cont RT. VICENTA GARCIA MD Staff Physician Dept of Radiation Medicine lliSanju eller MD - 04/03/2013 12:59 PM PST Radiation Oncology - On Treatment Visit Note [...] Total RT Dose: 50 Gy. Current Fraction: 2 of 20. SUBJECTIVE: Tolerating radiation treatment well Swallowing well Voice is still hoarse OBJECTIVE: Vital Signs: BP 112/61 | Pulse 77 | Temp (Src) 36.1 C (97 F) (Oral) | Wt 89.54 kg (197 lb 6.4 oz) | SpO2 97% Pain Score: 0 Wt Readings from Last 3 Encounters: 04/03/13 89.54 kg (197 lb 6.4 oz) Renny Moss Jose's mode of transportation is ambulates with a walker. Gen: NAD ASSESSMENT/PLAN: Tolerating treatment well The patient's chart and films were reviewed. Cont RT. SANJU PEREZ MD alie Hadley 04/03/2013 12:32 PM PST Nursing Note Patient here for an On Treatment Visit. Completed 2 fractions of a planned 20. Current dose 500 cGy of total 5000 cGy. Vitals/Pain Level: BP 112/61 | Pulse 77 | Temp (Src) 36.1 C (97 F) (Oral) | Wt 89.54 kg (197 lb 6.4 oz) | SpO2 97% Pain Score: Wt Readings from Last 3 Encounters: 04/03/13 89.54 kg (197 lb 6.4 oz) Subjective: Pt reports 4/10 fatigue level. Pt states tolerating RT well with no new compla ints. Good appetite. Reports dry cough and hoarse voice. Pt denies sob, difficulty swallo wing, or nausea/vomiting. Objective: Pt alert, oriented, and ambulatory with walker. Accompanied by self. Pt colin gorman at [facility]. Nursing Plan: Continue supportive care. Will continue to monitor. documented in this encounter Plan of Treatment Not on filedocumented as of this encounter Visit Diagnoses + + | Diagnosis | + + | Radiotherapy - Primary | + + documented in this encounter"
--- OUTSIDE RECORDS SUMMARY | ~2018-08-24 | XMS | Encounter Summary ---
Demographics + + + | Address | [address] | | | [place] [address] | + + + | Home Phone | | + + + | Preferred Language | Unknown | + + + | Marital Status | Single | + + + | Hinduism Affiliation | UNK | + + + | Race | Unknown | + + + | Ethnic Group | Other Race | + + + Author + + + | Author | [facility] | + + + | Organization | [facility] | + + + | Address | Unknown | + + + | Phone | Unavailable | + + + Care Team Providers + +------+ + | Care Bicycle Courier Name | Role | Phone | + [...] [facility] [address] | MD [address] [facility] | | | | | [address] [facility] | [facility] | | | | | Jesse [address]lon | [place], [place] | | | | | [place], | [address] | | | | | [place] [address] | [phone] | | | | | [phone] | | | +--------+ + + + [...]
--- OUTSIDE RECORDS SUMMARY | ~2018-08-24 | XMS | Encounter Summary ---
Demographics + + + | Address | [address] | | | [place] [address] | + + + | Home Phone | | + + + | Preferred Language | Unknown | + + + | Marital Status | Single | + + + | Protestant Affiliation | UNK | + + + | Race | Unknown | + + + | Ethnic Group | Other Race | + + + Author + + + | Author | [facility] | + + + | Organization | [facility] | + + + | Address | Unknown | + + + | Phone | Unavailable | + + + Care Team Providers + +------+ + | Care Radial Drill Press Operator Name | Role | Phone | + [...] | | | | site | [place] [address] | [address] | | | | | Procedures | Phone: | Pavilion | | | | | PET [facility]ULL | [phone] | [place], [place] | | | | | [facility] [facility] | Fax: | [address] | | | | | [place] | [phone] | Phone: | | | | | | | [phone] | | | | | | | Fax: | | | | | | | [phone] | +--------+--------+ + + + + Encounter Details +--------+ + + + + | Date | Type | Department | Care Team | Description | +--------+ + + + + | 09/02/ | Outside | Nuclear Medicine | FrankieRoldan, | | | 2011 | Referral | at [facility] [address] | [address] | | | | Order | [facility] | [place] [address] | | | | | Mailcode: [id number] | | | | | | [facility] | | | | | | [place], [place] | | | | | | [address] | | | | | | [phone] | | | +--------+ + + + [...] site | | + +---------+--------+ + + + +---------+--------+ + + | Name | Type | Priori | Associated Diagnoses | Order Schedule | | | | ty | | | + +---------+--------+ + + | PET [facility]ULL [facility] | Imaging | Routin | Malignant neoplasm | Expected: | | [place] | | e | of bronchus and | 09/03/2011, Expires: | | | | | lung, unspecified | 10/03/2012 | | | | | site | | + +---------+--------+ + + documented as of this encounter Visit Diagnoses + + | Diagnosis | + + | Malignant neoplasm of bronchus and lung, unspecified site - Primary | + + documented in this encounter"
--- OUTSIDE RECORDS SUMMARY | ~2018-08-24 | XMS | Encounter Summary ---
Demographics + + + | Address | [address] | | | [place] [address] | + + + | Home Phone | | + + + | Preferred Language | Unknown | + + + | Marital Status | Single | + + + | Presybeterian Affiliation | UNK | + + + | Race | Unknown | + + + | Ethnic Group | Other Race | + + + Author + + + | Author | [facility] | + + + | Organization | [facility] | + + + | Address | Unknown | + + + | Phone | Unavailable | + + + Care Team Providers + +------+ + | Care Hazmat Cdl A Driver Name | Role | Phone | + [...] Description | +--------+---------+ + + + | 04/27/ | Office | Radiation Oncology | Ken Milton, | Radiotherapy | | 2013 | Visit | at [facility] [address] | [address] | (Primary Dx) | | | | [address] | [facility] | | | | | Jesse Scanlon | [place], [place] | | | | | [place], | [address] | | | | | [place] [address] | [phone] | | | | | [phone] | | | +--------+---------+ + + + [...] + + + | Blood Pressure | 110/65 | 04/27/2013 11:46 AM | | | | | PST | | + + + + + | Pulse | 73 | 04/27/2013 11:46 AM | | | | | PST | | + + + + + | Temperature | 36.4 C (97.5 F) | 04/27/2013 11:46 AM | | | | | PST | | + + + + + | Respiratory Rate | - | - | | + + + + + | Oxygen Saturation | 97% | 04/27/2013 11:46 AM | | | | | PST | | + + + + + | Inhaled Oxygen | - | - | | | Concentration | | | | + + + + + | Weight | 89.6 kg (197 lb 8 | 04/27/2013 11:46 AM | | | | oz) | PST | | + + + + + | Height | - | - | | + + + + + | Body Mass Index | - | - | | + + + + + documented in this encounter Progress Notes Ken Milton MD - 04/27/2013 12:00 PM PSTFormatting of this note might be [...] Total RT Dose: 50 Gy. Current Fraction: 16 of 20. Concurrent Chemotherapy: no SUBJECTIVE: Feels that the hoarseness has improved a little last week. OBJECTIVE: Vital Signs: BP 110/65 | Pulse 73 | Temp (Src) 36.4 C (97.5 F) (Oral) | Wt 89.585 kg (1 97 lb 8 oz) | SpO2 97% Pain Score: 0 Wt Readings from Last 3 Encounters: 04/27/13 89.585 kg (197 lb 8 oz) 04/17/13 89.404 kg (197 lb 1.6 oz) 04/03/13 89.54 kg (197 lb 6.4 oz) Renny Toure [facility]'s mode of transportation is ambulatory. Gen: Alert, talkative, oriented x 3 ASSESSMENT/PLAN: Looks strong today The patient's chart and films were reviewed. Cont RT. KEN MILTON MD alie Hadley - 04/27 11:35 AM PST Nursing Note Patient here for an On Treatment Visit. Completed 16 fractions of a planned 20. Current dose 4000 cGy of total 5000 cGy. Vitals/Pain Level: BP 110/65 | Pulse 73 | Temp (Src) 36.4 C (97.5 F) (Oral) | Wt 89.585 kg (197 lb 8 oz) | SpO2 97% Pain Score: Wt Readings from Last 3 Encounters: 04/27/13 89.585 kg (197 lb 8 oz) 04/17/13 89.404 kg (197 lb 1.6 oz) 04/03/13 89.54 kg (197 lb 6.4 oz) Subjective: Pt reports 6/10 fatigue level. Pt reports tolerating RT well with no complaint s. Tolerating regular diet well. Pt denies difficulty swallowing, cough, sob, or nausea/vo miting. Objective: Pt alert, oriented, and ambulatory with walker. Accompanied by self. Pt meli ann residing at [facility]. Pt request to receive BID treatments on 04/30/13 to comple te RT a day early. Dr. Milton notified. Nursing Plan: Continue supportive care. Will continue to monitor. documented in this encounter Plan of Treatment Not on filedocumented as of this encounter Visit Diagnoses + + | Diagnosis | + + | Radiotherapy - Primary | + + documented in this encounter"
--- OUTSIDE RECORDS SUMMARY | ~2018-08-24 | XMS | Encounter Summary ---
Demographics + + + | Address | [address] | | | [place] [address] | + + + | Home Phone | | + + + | Preferred Language | Unknown | + + + | Marital Status | Single | + + + | Sikh Affiliation | UNK | + + + | Race | Unknown | + + + | Ethnic Group | Other Race | + + + Author + + + | Author | [facility] | + + + | Organization | [facility] | + + + | Address | Unknown | + + + | Phone | Unavailable | + + + Care Team Providers + +------+ + | Care Corporate Director Of Pharmacy Name | Role | Phone | + +------+ + | No Pcp Per Patient | PCP | Unavailable | + +------+ + Encounter Details +--------+ + + + + | Date | Type | Department | Care Team | Description | +--------+ + + + + | 04/09/ | Hospital | Radiation Oncology | | | | 2013 | Encounter | at [facility] [address] | | | | | | [address] | | | | | | [address] | | | | | | [place], | | | | | | [place] [address] | | | | | | [phone] | | | +--------+ + + + [...]
--- OUTSIDE RECORDS SUMMARY | ~2018-08-24 | XMS | Encounter Summary ---
Demographics + + + | Address | [address] | | | [place] [address] | + + + | Home Phone [...] Author + + + | Author | [facility] | + + + | Organization | [facility] | + + + | Address | Unknown | + + + | Phone | Unavailable | + + + Care Team Providers + +------+ + | Care Metal Hanging Helper Name | Role | Phone | + +------+ + | No Pcp Per Patient | PCP | Unavailable | + +------+ + Encounter Details +--------+ + + + + | Date | Type | Department | Care Team | Description | +--------+ + + + + | 04/13/ | Hospital | Radiation Oncology | | | | 2013 | Encounter | at [facility] [address] | | | | | | [address] | | | | | | [address] | | | | | | [place], | | | | | | [place] [address] | | | | | | [phone] | | | +--------+ + + + [...]
--- OUTSIDE RECORDS SUMMARY | ~2018-08-24 | XMS | Encounter Summary ---
Demographics + + + | Address | [address] | | | [place] [address] | + + + | Home Phone | | + + + | Preferred Language | Unknown | + + + | Marital Status | Single | + + + | Yazidism Affiliation | UNK | + + + | Race | Unknown | + + + | Ethnic Group | Other Race | + + + Author + + + | Author | [facility] | + + + | Organization | [facility] | + + + | Address | Unknown | + + + | Phone | Unavailable | + + + Care Team Providers + +------+ + | Care Welding Rod Coater Name | Role | Phone | + +------+ + | No Pcp Per Patient | PCP | Unavailable | + +------+ + Reason for Visit PROC - Dept/Practice Procedure (Routine) +--------+--------+ + + + + | Status | Reason | Specialty | Diagnoses / | Referred By | Referred To | | | | | Procedures | Contact | Contact | +--------+--------+ + + + + | Closed | | Radiation | Diagnoses | Deffesegundo, | [facility] | | | | Oncology | 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 | [place] [address]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 | [place] | [address] | | | | | cancer (HCC) | [facility] | [facility] | | | | | Procedures | CENTER [address] | Mailcode: | | | | | | [address] | [address] | | | | | SIMULATION, | [facility] | | | | | RADIATION | [address] | Hospital | | | | | [place] EST | [place], | [facility] | | | | | PATIENT | [place] [address] | [place], [place] | | | | | [place] | Phone: | [address] | | | | | NEW PATIENT | [phone] | Phone: | | | | | [place] | Fax: | [phone] | | | | | SET RADN | [phone] | Fax: | | | | | THERAPY | | [phone] | | | | | FIELD SIMPLE | | | | | | | [place] SET | | | | | | | RADN THERAPY | | | | | | | FIELD | | | | | | | COMPLEX [place] | | | | | | | RADN | | | | | | | TREATMENT | | | | | | | AID(S) | | | | | | | COMPLX [place] | | | | | | | RADIATION | | | | | | | THERAPY PLAN | | | | | | | COMPLEX [place] | | | | | | | RADIATION | | | | | | | THERAPY,DOSI | | | | | | | METRY PLAN | | | | | | | [place] SET RADN | | | | | | | THERAPY | | | | | | | FIELD 3D [place] | | | | | | | RADN | | | | | | | TREATMENT | | | | | | | AID(S) | | | | | | | COMPLX [place] | | | | | | | RADN RX | | | | | | | DELIVERY | | | | | | | COMPLX 11-19 | | | | | | | MEV [place] | | | | | | | STEREOSCOPIC | | | | | | | X-RAY GUIDE | | | | | | | [place] | | | | | | | OFFICE/OUTPT | | | | | | | | | | | | | | VISIT,EST,LE | | | | | | | ANETTE III | | | +--------+--------+ + + + + Encounter Details +--------+ + + + + | Date | Type | Department | Care Team | Description | +--------+ + + + + | 04/21/ | Hospital | Radiation Oncology | | | | 2013 | Encounter | at [facility] [address] | | | | | | [address] | | | | | | [address] | | | | | | [place], | | | | | | [place] [address] | | | | | | [phone] | | | +--------+ + + + [...]
--- OUTSIDE RECORDS SUMMARY | ~2018-08-24 | XMS | Encounter Summary ---
Demographics + + + | Address | [address] | | | [place] [address] | + + + | Home Phone | | + + + | Preferred Language | Unknown | + + + | Marital Status | Single | + + + | Mu-Ism Affiliation | UNK | + + + | Race | Unknown | + + + | Ethnic Group | Other Race | + + + Author + + + | Author | [facility] | + + + | Organization | [facility] | + + + | Address | Unknown | + + + | Phone | Unavailable | + + + Care Team Providers + +------+ + | Care Plant Guard Name | Role | Phone | + +------+ + | No Pcp Per Patient | PCP | Unavailable | + +------+ + Reason for Visit + + + | Reason | Comments | + + + | New patient | | | consultation | | + + + Consultation (Routine) +--------+--------+ + + + + | Status | Reason | Specialty | Diagnoses / | Referred By | Referred To | | | | | Procedures | Contact | Contact | +--------+--------+ + + + + | Closed | | Ophthalmology | Procedures | Non-[facility] | [facility] | | | | | | Epic Dept | [address] | | | | | DIAGNOSTICS | | [address] | | | | | [place] | | [address] | | | | | | | Mailcode: [facility] | | | | | | | [facility] | | | | | | | [place] [address] | | | | | | | Phone: | | | | | | | [phone] | | | | | | | Fax: | | | | | | | [phone] | +--------+--------+ + + + + Encounter Details +--------+---------+ + + + | Date | Type | Department | Care Team | Description | +--------+---------+ + + + | 01/21/ | Office | [facility] | Flakita Fields, | Exudative | | 2018 | Visit | [facility] at | [address] | age-related macular | | | | Abdiel Elliott [address] | degeneration of left | | | | [address] | [facility] [place] | eye with active | | | | Mailcode: [facility] | [address] | choroidal | | | | [facility] [place] | [phone] | neovascularization | | | | [address] | | ([facility]) (Primary Dx); | | | | [phone] | | Choroidal | | | | | | neovascularization, | | | | | | left eye | +--------+---------+ + + + Social History + + + +--------+------+ | Tobacco Use | Types | Packs/Day | Years | Date | | | | | Used | | + + + +--------+------+ | Current Some Day | E-cigarettes | | | | | Smoker | | | | | + + + +--------+------+ + +---+---+---+ | Smokeless Tobacco: | | | | | Never Used | | | | + +---+---+---+ + + + | Sex Assigned at [...] as of this encounter Progress Notes Flakita Fields MD - 01/21/2018 2:00 PM PSTFormatting of this note might be different f rom the original. [facility] Progress Note 01/21/2018 78 y.o. male Choroidal neovascularization, left eye Referred for presumed CSCR OS but OCT with shallow PED and FA more consistent with occult C NV most likely due to AMD. No clear hot spots on ICG. No other macular degeneration changes. Recommend initiating Avastin today. - Avastin left eye today. 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 Chief Complaint: New patient consultation HPI: The patient reports stable vision with no new flashes or floaters in either eye. Diffi culty seeing yellow with the left eye. He noticed the vision decreased with a blind spot in the left eye. Unsure when this began. Last A1C was 5.7 Current Outpatient Prescriptions (Ophthalmic Medications) Medication Sig carboxymethylcellulose Instill 1 drop into both eyes once daily. Current Outpatient Prescriptions (Other) Medication Sig albuterol Inhale 2 puffs every four hours as needed. aspirin EC Take 81 mg by mouth once daily. atenolol Take 25 mg by mouth once daily. atorvastatin Take 20 mg by mouth once daily at bedtime. budesonide-formoterol Inhale 2 puffs two times daily. cholecalciferol (Vitamin D3) Take 2,000 Units by mouth once daily. desonide Apply to affected area two times daily. Apply sparingly. docusate sodium Take 250 mg by mouth twice daily as needed. ferrous sulfate Take 325 mg by mouth once daily. fluorouracil Apply to affected area two times daily. Apply to lesions for 2-4 weeks; c omplete healing may nto be evident for 1-2 months following treatment. gabapentin Take 600 mg by mouth three times daily. gemfibrozil Take 600 mg by mouth two times daily. Indications: HYPERTRIGLYCERIDEMIA guaiFENesin LA Take 600 mg by mouth twice daily as needed. HYDROcodone-acetaminophen Take 1 tablet by mouth three times daily as needed. Not to ex ceed 10 tablets per any 24 hour period. (Not to exceed 3250 mg of acetaminophen from all pro ducts per 24 hour period.) isosorbide mononitrate CR Take 30 mg by mouth once daily. loratadine Take 10 mg by mouth once daily. magnesium oxide Take 250 mg by mouth once daily. metFORMIN Take 850 mg by mouth two times daily. MOMETASONE FUROATE (MOMETASONE NASL) Instill in nose two times daily. niacin Take 500 mg by mouth once daily at bedtime. nitroglycerin Place 0.4 mg under tongue every five minutes as needed. Do not crush. Rebecca ce under tongue and allow to dissolve. Administer every 5 minutes for a maximum of 3 doses in 15 minutes. omeprazole Take 20 mg by mouth once daily. pravastatin Take 80 mg by mouth once daily at bedtime. risperiDONE Take 1 mg by mouth. Reviewed: Tobacco | Allergies | Meds | Med Hx | Surg Hx | Fam Hx | Examination: See Ophthalmology Module Attestations: The mobile battery technician, under the supervision of the physician, is responsible for performing the f ollowing sections: RFV, ROS, PMH, PSH, SocHx, FH, Med list, Base Ophth Exam. The attending physician is responsible for the entire content of the note and has personall y performed the HPI and the physical examination FLAKITA FIELDS MD documented in this encounter Plan of Treatment Not on filedocumented as of this encounter Procedures + +--------+ + + + | Procedure Name | Priori | Date/Time | Associated Diagnosis | Comments | | | ty | | | | + +--------+ + + + | AVASTIN INJECTION - | Routin | 01/21/2018 | Choroidal | Results for this | | OS - LEFT EYE | e | 4:50 PM | neovascularization, | procedure are in the | | | | PST | left eye Exudative | results section. | | | | | age-related macular | | | | | | degeneration of left | | | | | | eye with active | | | | | | choroidal | | | | | | neovascularization | | | | | | (HCC) | | + +--------+ + + + | OCT, RETINA | Routin | 01/21/2018 | Choroidal | Results for this | | | e | 4:20 PM | neovascularization, | procedure are in the | | | | PST | left eye Exudative | results section. | | | | | age-related macular | | | | | | degeneration of left | | | | | | eye with active | | | | | | choroidal | | | | | | neovascularization | | | | | | (HCC) | | + +--------+ + + + | FLUORESCEIN | Routin | 01/21/2018 | Choroidal | Results for this | | ANGIOGRAPHY | e | 4:20 PM | neovascularization, | procedure are in the | | | | PST | left eye Exudative | results section. | | | | | age-related macular | | | | | | degeneration of left | | | | | | eye with active | | | | | | choroidal | | | | | | neovascularization | | | | | | (HCC) | | + +--------+ + + + | ICG ANGIOGRAPHY | Routin | 01/21/2018 | Choroidal | Results for this | | | e | 4:19 PM | neovascularization, | procedure are in the | | | | PST | left eye Exudative | results section. | | | | | age-related macular | | | | | | degeneration of left | | | | | | eye with active | | | | | | choroidal | | | | | | neovascularization | | | | | | (HCC) | | + +--------+ + + + | FUNDUS PHOTOS | Routin | 01/21/2018 | Choroidal | Results for this | | | e | 4:19 PM | neovascularization, | procedure are in the | | | | PST | left eye Exudative | results section. | | | | | age-related macular | | | | | | degeneration of left | | | | | | eye with active | | | | | | choroidal | | | | | | neovascularization | | | | | | ([facility]) | | + +--------+ + + + documented in this encounter Results AVASTIN INJECTION - OS - LEFT EYE (01/21/2018 4:50 PM PST) + + + | Narrative | Performed At | + + + | Pre-Procedure | | | Procedures, alternatives and risks discussed with patient. Questions | | | answered., confirmed correct patient, procedure, site and consent. | | | | | | | | | Anesthesia | | | Anesthesia: subconjunctival | | | Anesthetic Medication: Lidocaine Gel | | | | | | | | | Procedure | | | Preparation: betadine to ocular surface, eyelid speculum | | | | | | Needle: 30g | | | | | | | | | Injection: 1.25 mg bevacizumab 1.25 mg/0.05 mL | | | ND: [id number] | | | Lot: [id number] | | | Expiration Date: 01/25/2018 | | | Route: intravitreal | | | Site: Left Eye | | | | | | Estimated blood loss: none | | | | | | | | | Post Op | | | Post procedure assessment: visual acuity at least count fingers, eye | | | rinsed, patient tolerated procedure well | | + + + OCT, RETINA (01/21/2018 4:20 PM PST) + + + | Narrative | Performed At | + + + | [employer] Representative [employer] | [facility] | | DocumentationRight EyeQuality: good Central macular | [facility] | | thickness: 240 Segmentation: accurate Left EyeQuality: | | | good Central macular thickness: 317 Segmentation: accurate | | | Provider DocumentationRight EyeContour: normal macula Fluid and | | | related findings: no fluid Left EyeContour: central | | | thickening Fluid and related findings: IRF, SRF Retinal | | | findings: (PED inferior to fovea) | | |Left Eye | | |Quality: good | | | | | |Central macular thickness: 317 | | |Segmentation: accurate | | | | | | | | |Provider Documentation | | |Right Eye | | |Contour: normal macula | | |Fluid and related findings: no fluid | | | | | | | | |Left Eye | | |Contour: central thickening | | |Fluid and related findings: IRF, SRF | | |Retinal findings: (PED inferior to fovea) | | + + + + + + + + | Performing | Address | City/State/Zipcode | Phone Number | | Organization | | | | + + + + + | [facility] | [address] | [place] [address] | | | [place] | [place] | | | + + + + + FLUORESCEIN ANGIOGRAPHY (01/21/2018 4:20 PM PST) + + ---+ | Narrative | Performed A t | + + ---+ | Sales Representative [employer] | [facility] | | DocumentationConsent: Informed consent obtained IV Inejction: 5cc of | [facility] | | 10% fluoroscein sodium injected, antecubital, limited dye injection | | | Right EyeQuality: good Type: Optos Left EyeQuality: good | | | Type: Optos Provider DocumentationRight | | | EyeInterprepatation: normal retinal vasculature Additional | | | Findings: intact MARYLIN Left EyeTransit: normal transit time | | | Interprepatation: area of poorly defined stippled | | | hyperfluorescence with late leakage Additional Findings: intact | | | MARYLIN NotesCombined FA/ICG. Only 2.5cc given. | | |Left Eye | | |Quality: good | | |Type: Optos | | | | | | | | |Provider Documentation | | |Right Eye | | |Interprepatation: normal retinal vasculature | | |Additional Findings: intact MARYLIN | | | | | | | | | | | |Left Eye | | |Transit: normal transit time | | |Interprepatation: area of poorly defined stippled hyperfluorescence with | | |late leakage | | |Additional Findings: intact MARYLIN | | | | | | | | | | | |Notes | | |Combined FA/ICG. Only 2.5cc given. | | + + ---+ + + + + + | Performing | Address | City/State/Zipcode | Phone Number | | Organization | | | | + + + + + | [facility] | [address] | [place] [address] | | | [place] | [place]. | | | + + + + + ICG ANGIOGRAPHY (01/21/2018 4:19 PM PST) + + -+ | Narrative | Performed At | + + -+ | [employer] Representative [employer] | [facility] | | DocumentationRight EyeQuality: good Type: Optos Transit: | [facility] | | normal transit time Left EyeQuality: good Type: Optos | | | Transit: normal transit time Provider DocumentationRight EyeICG | | | Interpretation: normal NotesPossible hot spot on late frames of | | | ICG in the left eye although these are not particularly bright. | | | | | |Left Eye | | |Quality: good | | |Type: Optos | | |Transit: normal transit time | | | | | | | | |Provider Documentation | | |Right Eye | | |ICG Interpretation: normal | | | | | | | | |Notes | | |Possible hot spot on late frames of ICG in the left eye although these are | | |not particularly bright. | | + + -+ + + + + + | Performing | Address | City/State/Zipcode | Phone Number | | Organization | | | | + + + + + | [facility] | [address] | [place] [address] | | | INSTITUTE | [address] | | | + + + + + FUNDUS PHOTOS (01/21/2018 4:19 PM PST) + + + | Narrative | Performed At | + + + | [employer] Representative [employer] | [facility] | | DocumentationType was Optos. NotesRight Eye:Disc: Normal | [facility] | | 0.4Macula: Central yellow lesion, no | | | hemeVessels: NormalPeriphery: Reticular degeneration Left | | | Eye: Disc: Normal 0.5Macula: Central RPE mottling, exudates | | | along inferior borderVessels: NormalPeriphery: Reticular | | | degeneration, single inactive CR scar IT | | |Vessels: Normal | | |Periphery: Reticular degeneration | | | | | |Left Eye: | | |Disc: Normal 0.5 | | |Macula: Central RPE mottling, exudates along inferior border | | |Vessels: Normal | | |Periphery: Reticular degeneration, single inactive CR scar IT | | | | | + + + + + + + + | Performing | Address | City/State/Zipcode | Phone Number | | Organization | | | | + + + + + | [facility] | [address] | [place] [address] | | | [place] | [place] | | | + + + + + documented in this encounter Visit Diagnoses + + | Diagnosis | + + | Exudative age-related macular degeneration of left eye with active choroidal | | neovascularization (HCC) - Primary | + + | Choroidal neovascularization, left eye Retinal neovascularization NOS | + + documented in this encounter Administered Medications + +--------+ +---------+------+ + | Medication Order | MAR | Action | Dose | Rate | Site | | | Action | Date | | | | + +--------+ +---------+------+ + | bevacizumab (AVASTIN) | Given | 01/22/20 | 1.25 mg | | Left Eye | | intravitreal injection 1.25 mg | | 18 4:50 | | | | | 1.25 mg, ONCE PRN (IPROC), 1 | | PM PST | | | | | dose, Starting 01/21/18 at | | | | | | | 1650, Until 01/21/18 at 1650 | | | | | | + +--------+ +---------+------+ + +---+---+ | | | +---+---+ documented in this encounter"
--- OUTSIDE RECORDS SUMMARY | ~2018-08-24 | XMS | Encounter Summary ---
Demographics + + + | Address | [address] | | | [place] [address] | + + + | Home Phone [...] Team Providers + +------+ + | Care Cream Dumper Name | Role | Phone | + +------+ + | No Pcp Per Patient | PCP | Unavailable | + +------+ + Reason for Visit + + + | Reason | Comments | + + + | RT Clinical | | | Treatment Planning | | | Note | | + + + Encounter Details +--------+ + + + + | Date | Type | Department | Care Team | Description | +--------+ + + + + | 03/30/ | Documentati | Radiation Oncology | Ken Milton, | RT Clinical | | 2013 | on | at [facility] [address] | [address] [facility] | Treatment Planning | | | | [address] | [address] | Note | | | | [address] | [place], [place] | | | | | [place], | [address] | | | | | [place] [address] | [phone] | | | | | [phone] | | | +--------+ + + + [...]
--- OUTSIDE RECORDS SUMMARY | ~2018-08-24 | XMS | Encounter Summary ---
Demographics + + + | Address | [address] | | | [place] [address] | + + + | Home Phone | | + + + | Preferred Language | Unknown | + + + | Marital Status | Single | + + + | Caodaism Affiliation | UNK | + + + | Race | Unknown | + + + | Ethnic Group | Other Race | + + + Author + + + | Author | [facility] | + + + | Organization | [facility] | + + + | Address | Unknown | + + + | Phone | Unavailable | + + + Care Team Providers + +------+ + | Care Stamping Operator Name | Role | Phone | [...] | | | | site | [place] [address] | [address] | | | | | Procedures | Phone: | Pavilion | | | | | [address] [place] | [phone] | [place], [place] | | | | | [address] | Fax: | [address] | | | | | [place] | [phone] | Phone: | | | | | | | [phone] | | | | | | | Fax: | | | | | | | [phone] | +--------+--------+ + + + + Encounter Details +--------+ + + + + | Date | Type | Department | Care Team | Description | +--------+ + + + + | 09/02/ | Outside | Nuclear Medicine | FrankieRoldan, | | | 2011 | Referral | at [facility] [address] | [address] | | | | Order | [facility] | [place] [address] | | | | | Mailcode: [address] | | | | | | [facility] | | | | | | [place], [place] | | | | | | [address] | | | | | | [phone] | | | +--------+ + + + [...]
--- OUTSIDE RECORDS SUMMARY | ~2018-08-24 | XMS | Encounter Summary ---
Demographics + + + | Address | [address] | | | [place] [address] | + + + | Home Phone [...] Author + + + | Author | [facility] | + + + | Organization | [facility] | + + + | Address | Unknown | + + + | Phone | Unavailable | + + + Care Team Providers + +------+ + | Care Data Processing Manager Name | Role | Phone | + +------+ + | No Pcp Per Patient | PCP | Unavailable | + +------+ + Encounter Details +--------+ + + + + | Date | Type | Department | Care Team | Description | +--------+ + + + + | 04/22/ | Hospital | Radiation Oncology | | | | 2013 | Encounter | at [facility] [address] | | | | | | [address] | | | | | | [address] | | | | | | [place], | | | | | | [place] [address] | | | | | | [phone] | | | +--------+ + + + [...]
--- OUTSIDE RECORDS SUMMARY | ~2018-08-24 | XMS | Encounter Summary ---
Demographics + + + | Address | [address] | | | [place] [address] | + + + | Home Phone | | + + + | Preferred Language | Unknown | + + + | Marital Status | Single | + + + | Taoism Affiliation | UNK | + + + [...] Team Providers + +------+ + | Care Medical Leader Name | Role | Phone | + +------+ + | No Pcp Per Patient | PCP | Unavailable | + +------+ + Encounter Details +--------+ + + + + | Date | Type | Department | Care Team | Description | +--------+ + + + + | 04/14/ | Hospital | Radiation Oncology | | | | 2014 | Encounter | at [facility] [address] | | | | | | [address] | | | | | | [address] | | | | | | [place], | | | | | | [place] [address] | | | | | | [phone] | | | +--------+ + + + [...]
--- OUTSIDE RECORDS SUMMARY | ~2018-08-24 | XMS | Encounter Summary ---
Demographics + + + | Address | [address] | | | [place] [address] | + + + | Home Phone | | + + + | Preferred Language | Unknown | + + + | Marital Status | Single | + + + | Sikhism Affiliation | UNK | + + + | Race | Unknown | + + + | Ethnic Group | Other Race | + + + Author + + + | Author | [facility] | + + + | Organization | [facility] | + + + | Address | Unknown | + + + | Phone | Unavailable | + + + Care Team Providers + +------+ + | Care Manager Mining Name | Role | Phone | + +------+ + | No Pcp Per Patient | PCP | Unavailable | + +------+ + Encounter Details +--------+ + + + + | Date | Type | Department | Care Team | Description | +--------+ + + + + | 04/02/ | Hospital | Radiation Oncology | | | | 2014 | Encounter | at [facility] [address] | | | | | | [address] | | | | | | [address] | | | | | | [place], | | | | | | [place] [address] | | | | | | [phone] | | | +--------+ + + + [...]
--- OUTSIDE RECORDS SUMMARY | ~2018-08-24 | XMS | Encounter Summary ---
Demographics + + + | Address | [address] | | | [place] [address] | + + + | Home Phone | | + + + | Preferred Language | Unknown | + + + | Marital Status | Single | + + + | Nondenominational Affiliation | UNK | + + + | Race | Unknown | + + + | Ethnic Group | Other Race | + + + Author + + + | Author | [facility] | + + + | Organization | [facility] | + + + | Address | Unknown | + + + | Phone | Unavailable | + + + Care Team Providers + +------+ + | Care Digital Photographic Printer Name | Role | Phone | + [...] | | | | | | [place], | | | | | | [place] [address] | | | | | | [phone] | | | +--------+ + + + [...]
--- OUTSIDE RECORDS SUMMARY | ~2018-08-24 | XMS | Encounter Summary ---
Demographics + + + | Address | [address] | | | [place] [address] | + + + | Home Phone | | + + + | Preferred Language | Unknown | + + + | Marital Status | Single | + + + | Confucianist Affiliation | UNK | + + + | Race | Unknown | + + + | Ethnic Group | Other Race | + + + Author + + + | Author | [facility] | + + + | Organization | [facility] | + + + | Address | Unknown | + + + | Phone | Unavailable | + + + Care Team Providers + +------+ + | Care Helper/Driver Name | Role | Phone | + [...] | | | | cell lung | [place] | [address] | | | | | cancer (HCC) | [facility] | [facility] | | | | | Procedures | CENTER [address] | Mailcode: | | | | | | [address] | [address] | | | | | SIMULATION, | [facility] | | | | | RADIATION | [address] | Hospital | | | | | [place] EST | [place], | [facility] | | | | | PATIENT | [place] [address] | [place], [place] | | | | | LEVEL V [place] | Phone: | [phone] | | | | | NEW PATIENT | [phone] | Phone: | | | | | LEVEL V [place] | Fax: | [phone] | | | | | SET RADN | [phone] | Fax: | | | | | THERAPY | | [phone] | | | | | FIELD SIMPLE | | | | | | | [place] SET | | | | | | | RADN THERAPY | | | | | | | FIELD | | | | | | | COMPLEX NV | | | | | | | RADN | | | | | | | TREATMENT | | | | | | | AID(S) | | | | | | | COMPLX NV | | | | | | | RADIATION | | | | | | | THERAPY PLAN | | | | | | | COMPLEX NV | | | | | | | RADIATION | | | | | | | THERAPY,DOSI | | | | | | | METRY PLAN | | | | | | | NV SET RADN | | | | | | | THERAPY | | | | | | | FIELD 3D NV | | | | | | | RADN | | | | | | | TREATMENT | | | | | | | AID(S) | | | | | | | COMPLX NV | | | | | | | RADN RX | | | | | | | DELIVERY | | | | | | | COMPLX 11-19 | | | | | | | MEV [place] | | | | | | | STEREOSCOPIC | | | | | | | X-RAY GUIDE | | | | | | | [place] | | | | | | | [...] | | | | | | [place] [address] | | | | | | [phone] | | | +--------+ + + + [...]
--- OUTSIDE RECORDS SUMMARY | ~2018-08-24 | XMS | Encounter Summary ---
Demographics + + + | Address | [address] | | | [place] [address] | + + + | Home Phone | | + + + | Preferred Language | Unknown | + + + | Marital Status | Single | + + + | Rastafarian Affiliation | UNK | + + + [...] Team Providers + +------+ + | Care X Ray Nurse Name | Role | Phone | + +------+ + | No Pcp Per Patient | PCP | Unavailable | + +------+ + Encounter Details +--------+ + + + + | Date | Type | Department | Care Team | Description | +--------+ + + + + | 04/28/ | Hospital | Radiation Oncology | | | | 2014 | Encounter | at [facility] [address] | | | | | | [address] | | | | | | [address] | | | | | | [place], | | | | | | [place] [address] | | | | | | [phone] | | | +--------+ + + + [...]
--- OUTSIDE RECORDS SUMMARY | ~2018-08-24 | XMS | Encounter Summary ---
Demographics + + + | Address | [address] | | | [place] [address] | + + + | Home Phone [...] + + + | Author | [facility] | + + + | Organization | [facility] | + + + | Address | Unknown | + + + | Phone | Unavailable | + + + Care Team Providers + +------+ + | Care Strip Cleaner Name | Role | Phone | + +------+ + | No Pcp Per Patient | PCP | Unavailable | + +------+ + Encounter Details +--------+ + + + + | Date | Type | Department | Care Team | Description | +--------+ + + + + | 03/30/ | Results | Radiation Oncology | Ken Milton, | | | 2013 | Only | at [facility] [address] | [address] [facility] | | | | | [address] [facility] | [facility] | | | | | [facility] | [place], [place] | | | | | [address] [place], | [address] | | | | | [place] [address] | [phone] | | | | | [phone] | | | +--------+ + + + [...] | | + +---------+--------+ + + | RX SIMULATION | Imaging | Routin | | 03/30/2013 7:30 AM | | | | e | | PST | + +---------+--------+ + + documented as of this encounter Visit Diagnoses Not on filedocumented in this encounter"
--- OUTSIDE RECORDS SUMMARY | ~2018-08-24 | XMS | Encounter Summary ---
Demographics + + + | Address | [address] | | | [place] [address] | + + + | Home Phone | | + + + | Preferred Language | Unknown | + + + | Marital Status | Single | + + + | Pentecostal Affiliation | UNK | + + + | Race | Unknown | + + + | Ethnic Group | Other Race | + + + Author + + + | Author | [facility] | + + + | Organization | [facility] | + + + | Address | Unknown | + + + | Phone | Unavailable | + + + Care Team Providers + +------+ + | Care College Counselor Name | Role | Phone | + +------+ + | No Pcp Per Patient | PCP | Unavailable | + +------+ + Reason for Visit Consultation (Routine) +--------+--------+ + + + + | Status | Reason | Specialty | Diagnoses / | Referred By | Referred To | | | | | Procedures | Contact | Contact | +--------+--------+ + + + + | Closed | | Radiation | Diagnoses | Zach, | Yoan, | | | | Oncology | Malignant | Al Kirby MD | Ken Ro MD | | | | | neoplasm of | [place] | [address] | | | | | bronchus and | [facility] | [facility] | | | | | lung, | [address]ENTER [address] | | | | | unspecified | [address] | [place], [place] | | | | | site | [place] | [address] | | | | | Procedures | [address] | Phone: | | | | | [place] NEW | [place], | [phone] | | | | | PATIENT | [place] [address] | Fax: | | | | | LEVEL I ME | Phone: | [phone] | | | | | NEW PATIENT | [phone] | | | | | | LEVEL II ME | Fax: | | | | | | NEW PATIENT | [phone] | | | | | | LEVEL III | | | | | | | ME NEW | | | | | | | PATIENT | | | | | | | LEVEL IV ME | | | | | | | SET RADN | | | | | | | THERAPY | | | | | | | FIELD | | | | | | | COMPLEX | | | +--------+--------+ + + + + Encounter Details +--------+ + + + + | Date | Type | Department | Care Team | Description | +--------+ + + + + | 03/30/ | Hospital | Radiation Oncology | | | | 2013 | Encounter | at [facility] [address] | | | | | | [address] | | | | | | [address] | | | | | | [place], | | | | | | [place] [address] | | | | | | [phone] | | | +--------+ + + + [...] + + documented as of this encounter Discharge Josselyn Garcia Faculty - 04/29/2013 2:39 PM PSTElectronically signed by Faculty Other at 2:39 PM PSTdocumented in this encounter Plan of Treatment Not on filedocumented as of this encounter Procedures + +--------+ + + + | Procedure Name | Priori | Date/Time | Associated Diagnosis | Comments | | | ty | | | | + +--------+ + + + | PROCEDURE NOTE | Routin | 04/21/2015 | | Results for this | | | e | 8:01 PM | | procedure are in the | | | | PST | | results section. | + +--------+ + + + documented in this encounter Results PROCEDURE NOTE (04/21/2015 8:01 PM PST) + + | Transcriptions | + + | Other, Faculty - 04/29/2013 2:38 PM PST | + + documented in this encounter Visit Diagnoses Not on filedocumented in this encounter"
--- OUTSIDE RECORDS SUMMARY | ~2018-08-24 | XMS | Encounter Summary ---
Demographics + + + | Address | [address] | | | [place] [address] | + + + | Home Phone | | + + + | Preferred Language | Unknown | + + + | Marital Status | Single | + + + | Sabianist Affiliation | UNK | + + + | Race | Unknown | + + + | Ethnic Group | Other Race | + + + Author + + + | Author | [facility] | + + + | Organization | [facility] | + + + | Address | Unknown | + + + | Phone | Unavailable | + + + Care Team Providers + +------+ + | Care Clinical Services Assistant Name | Role | Phone | + [...] | | | | neoplasm of | [place] | [address] | | | | | bronchus and | [facility] | [facility] | | | | | lung, | [address]ENTER [address] | | | | | unspecified | [address] | [place], [place] | | | | | site | [place] | [address] | | | | | Procedures | [address] | Phone: | | | | | [place] NEW | [place], | [phone] | | | | | PATIENT | [place] [address] | Fax: | | | | | LEVEL I CA | Phone: | [phone] | | | | | NEW PATIENT | [phone] | | | | | | LEVEL II [place] | Fax: | | | | | | NEW PATIENT | [phone] | | | | | | LEVEL III | | | | | | | [place] NEW | | | | | | | PATIENT | | | | | | | LEVEL IV CA | | | | | | | [...] | +--------+ + + + + | 03/24/ | Office | Radiation Oncology | Ken Milton, | CORRESPONDENCE | | 2013 | Visit-ECX | at [place] [address] | [address] | | | | | [facility] | [facility] | | | | | Mailcode: [address] | [place], [place] | | | | | [facility] | [address] | | | | | [place], [place] | [phone] | | | | | [address] | | | | | | [phone] | | | +--------+ + + + [...] documented as of this encounter Progress Notes Ken Milton MD - 03/25/2013 2:58 PM PSTAttending Physician Teaching Statement We have been asked to render an opinion regarding radiotherapy for Renny Moss Sr .. I performed a history and physical examination of the patient and discussed his manageme nt with the resident. I have reviewed the resident s note and have entered my findings di rectly into the resident's consult note above. 73 y.o. 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 I spent a total of 60 minutes on this consultation with Mr. Moss, of which >50% of the ti me was spent counseling him on radiotherapy treatment options and coordination of patient ca re. Ken Milton Jr., MD Attending Physician [facility] Radiation Medicine Service Attending Physician [facility] Radiotherapy Service CC: This note has been routed to the referring provider, Al Serrano MD. 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 Moss is a 73 year old former smoker, he is a gentleman from [place], [place] with a hist ory of pT2bN0 poorly differentiated adenocarcinoma s/p LVATS with left upper lobectomy, limi marcus medistinal/hilar lymph node dissection (5/6, 10L, 11L, and 12L) and intercostal muscle f lap to left upper lobe bronchus on 11/09/2011. All 7 lymph nodes were negative for metastatic disease. Given his multiple co-morbidities (COPD, DM, CAD) and poor performance status (con fined to a scooter) he was felt to be a poor candidate for adjuvant chemotherapy. He has been followed with surveillance CT scans; in January of this last year his CT did d emonstrate an enlarging AP window node. PET in February the AP node was FDG avid. Bronchosco py/EBUS was done 02/24/13 and the AP window node c/w metastatic NSCLC, consistent with rishabh jannette's prior pathology. Since the bronchoscopy he has noticed that his voice has changed. This has progressed to si gnificant hoarseness that limits his speech. He denies any cold like symptoms including sore throat and runny nose. He otherwise has been donig well, he complains of SOB but this is st able and so is JIM. he doesn't use home oxygen and drives himself to appointments. He does u se a scooter to ambulate and run errands as he can't walk much more than a 1/2 city block - in which he becomes completely winded. No hemoptysis. No N/V/F/C. ? Onc Hx: -08/2011-pre-op work-up for lumbar laminectomy demonstrated a BERENICE lesion -08/2011-PET/CT with SUV of 12.7 in BERENICE, but no signs of Metastatic Disease -Pre-Operative Stress-Test with small area of ischemia in inferior wall -11/09/11-BERENICE lobectomy done with VATS -Pathology with 0/7 LN positive for metastatic disease, tumor poorly- differentiated Adenocarcinoma, 2.5 x 2.5 x 5 cm - No adjuvant chemotherapy due to poor performance status and comorbidities. -02/02/2013-surveillance CT with "mild increase in size of the 1.8 x 3.4 cm AP window node. Cannot exclude recurrent tumor. Recommend close follow-up." 02/19/2013: PET scan with "Soft tissue density just inferior to the aortic arch demonstrates increased metabolic activity with a maxSUV of 7.9. This is concerning for AP window lymph node involvement." 02/24/2013: Bronchoscopy with EBUS 4L LYMPH NODE, EBUS: - METASTATIC NON-SMALL CELL CARCINOMA, CONSISTENT PATIENT'S PRIOR PATHOLOGY. The patient is being seen today in consultation for consideration of radiotherapy options. Past Medical History: -Spinal Stenosis -DM -HTN -HLP -CAD (+Stress test for inferior ischemia) ALL PENICILLIN, CHLORAL HYDRATE, INDOMETHACIN Medications Active Medications: 1) Albuterol 90mcg (cfc-f) 200d oral inhl use 2 puffs by mouth every 4 hours as needed for shortness of breath 2) Budesonide 160/formoter 4.5mcg 120d inh use 2 puffs by mouth twice a day for breathing per [facility] (rx#[id number]) rinse mouth after using this inhaler 3) Docusate na 250mg cap take one capsule by mouth twice a day as needed for stool softener per [facility] (rx#[id number]) 4) Gabapentin 300mg cap take one capsule by mouth three times a day per [facility] (rx# [id number]) 5) Hydrocodone 5mg/acetaminophen 325mg tab take 1-2 hold tablets by mouth every 6 hours as needed for pain *more than 4gm/day acetaminophen may harm liver 6) Metformin hcl 850mg tab take one tablet by mouth twice a day before meals for diabetes per [facility] rx#[id number] 7) Omeprazole 20mg ec cap take one capsule by mouth every day . take one-half hour prior to breakfast for stomach acid per [facility] rx#[id number] 8) Pravastatin na 80mg tab take one-half tablet by mouth every evening to lower your cholesterol per [facility] (rx#[id number]) 9) Risperidone 1mg tab take two and one-half tablets by mouth at bedtime as directed per [facility] (rx#[id number]) 10) Tiotropium 18mcg inhl cap [address] place 1 capsule (18 mcg) in inhaler, inhale by mouth every day --- replaces ipratropium (atrovent/combivent), for inhaler use only Allergies: Allergies not on file Social History: -Lives in [place], [place] -quit smoking 6 years ago -No alcohol/drugs -Family lives in [place] -Niece lives nearby his home and helps take care of his cat Family History: Noncontributory - no history of lung cancer Review of Systems: The patient completed the Department's 11 organ system Review of Systems questionnaire on p aper. The ROS was all negative except as reported above in the HPI. Physical Exam: VITALS: Pulse: 61 (03/23/2013 13:44) BP: 119/70 (03/23/2013 13:44) Resp: 17 (03/23/2013 13:44) Temp: 97.8 F [36.6 C] (03/23/2013 13:44) O2: 90 (02/24/2013 10:51) Pain: 5 (03/23/2013 13:44) PE: GEN: obese, NAD, limited mobility (walker at side) and JIM HEENT: dysphonia, no cervical or SCV LAD Heart: RRR no M/G/R appreciated Lungs: CTA bilaterally Abdo: + bowel sounds, soft, NT Ext: no c/c/e ? LABORATORY: 03/23/2013 16:26 CHEMISTRY PLASMA GLUCOSE- 97 BUN - 14 CREAT - 0.9 NA - 139 K - 3.8 CL - 100 CO2 - 30 ANI GAP- 13 eGFR - 82 IMAGING: Report Status: Verified Date Reported: FEB 22, 2013 Date Verified: FEB 22, 2013 Securities Research Analyst E-Sig:/ES/[email or web address] GIORDANO MD Report: INDICATION: Left paratracheal recurrence EXPOSURE: CTD/Vol 6.3 mGy DLP 625.38 mGy*cm 13.37 mCi of 18F Flurodeoxyglucose PROCEDURE: Initial blood glucose was 169 mg/dL. Please note if the blood glucose is above 130 mg/dL, FDG PET sensitivity for malignancy is half the sensitivity if the blood glucose is below 130 mg/dl. 18F Flurodeoxyglucose were injected at 1300 in the LAC and subsequent pet tumor metabolism images from the mid thighs to the base of the skull were obtained at 1403. A low dose noncontrast nondiagnostic CT for the purposes of attenuation correction and gross anatomic localization was also performed. COMPARISON: [id number] PET FINDINGS: Limited views of the brain with no grossly abnormal focus to suggest involvement. No abnormal metabolic activity from the base of the skull to the base of the neck to suggest a malignant or metastatic process. Soft tissue density just inferior to the aortic arch demonstrates increased metabolic activity with a maxSUV of 7.9. This is concerning for AP window lymph node involvement. No abnormal metabolic activity within the liver to suggest hepatic involvement. Left adrenal gland maxSUV is 1.7. Right adrenal gland maxSUV is 2.0. Hypodensity arising from the left kidney demonstrates hypometabolism. Likely cyst. No grossly abnormal focus to suggest jerrell involvement within the abdomen or pelvis. There is uptake in bowel which can be seen normally. Reduces our ability to detect a malignant process within this region. No gross head and neck lymphadenopathy. Possible AP window soft tissue mass. Extensive coronary calcification. Query coronary disease. No gross left lung nodules noted. No gross right lung nodules noted. Please note there may be lung nodules too small to detect on PET tumor metabolism imaging. Calcification within the pancreas. No gross abdominal or pelvic lymphadenopathy. Impression: The previously noted enlarged AP window lymph nodes demonstrate increased metabolic activity concerning for jerrell involvement PATHOLOGY: 02/24/2013: Bronchoscopy with EBUS 4L LYMPH NODE, EBUS: - METASTATIC NON-SMALL CELL CARCINOMA, CONSISTENT PATIENT'S PRIOR PATHOLOGY. 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 Umana and Dr. Mcallister today. He didn't receive adjuvant chemotherapy at the time o f surgery due to poor performance status. This jerrell recurrence appears to be causing his dy sphonia. Plan - Hypofraction radiotherapy: 5000 - 5500 cGy at 250cGy per fraction Will need housing during the treatment - as he lives in [place] will plan to simulate nex t Saturday with Radiation to start Saturday or afterwards. ? - 4DCT simulation scan with contrast --Will plan to support back well during treatment as this position flairs symptoms from his spinal stenosis - Labs today for contrast with simulation (DM on metformin) Alexandrea Bourne notified to help with housing at [facility] ? The risks and benefits of radiation therapy were discussed in detail with the patient. The patient expressed an understanding of these risks and has agreed to proceed with the propose d treatment. Informed consent will be obtained at simulation. This patient was seen, examined, and discussed with my attending, Dr. Ken Milton, who agrees with this assessment and plan. SANJU PEREZ MD CC: A copy of this note has been sent to the referring provider, Dr. Serrano. documented in this e ncounter Plan of Treatment Not on filedocumented as of this encounter Visit Diagnoses + + | Diagnosis | + + | Non-small cell lung cancer (HCC) - Primary Malignant neoplasm of bronchus and lung, | | unspecified site | + + documented in this encounter
--- OUTSIDE RECORDS SUMMARY | ~2018-08-24 | XMS | Encounter Summary ---
Demographics + + + | Address | [address] | | | [place] [address] | + + + | Home Phone | | + + + | Preferred Language | Unknown | + + + | Marital Status | Single | + + + | Anabaptism Affiliation | UNK | + + + | Race | Unknown | + + + | Ethnic Group | Other Race | + + + Author + + + | Author | [facility] | + + + | Organization | [facility] | + + + | Address | Unknown | + + + | Phone | Unavailable | + + + Care Team Providers + +------+ + | Care Aviation Warfare Systems Operator Name | Role | Phone | + +------+ + | No Pcp Per Patient | PCP | Unavailable | + +------+ + Encounter Details +--------+ + + + + | Date | Type | Department | Care Team | Description | +--------+ + + + + | 04/29/ | Hospital | Radiation Oncology | | | | 2014 | Encounter | at [facility] [address] | | | | | | [address] | | | | | | [address] | | | | | | [place], | | | | | | [place] [address] | | | | | | [phone] | | | +--------+ + + + [...]
--- OUTSIDE RECORDS SUMMARY | ~2018-08-24 | XMS | Encounter Summary ---
Demographics + + + | Address | [address] | | | [place] [address] | + + + | Home Phone | | + + + | Preferred Language | Unknown | + + + | Marital Status | Single | + + + | Cheondoism Affiliation | UNK | + + + [...] Team Providers + +------+ + | Care Instructional Specialist Name | Role | Phone | + +------+ + | No Pcp Per Patient | PCP | Unavailable | + +------+ + Reason for Visit + + + | Reason | Comments | + + + | Follow-up visit | | + + + | AMD - Age-related | | | macular degeneration | | + + + Consultation (Routine) [...] | | | | Epic Dept | [address] | | | | | DIAGNOSTICS | | [address] | | | | | [place] [address] | | | | | | | Mailcode: [facility] | | | | | | | [facility] | | | | | | | [place] [address] | | | | | | | Phone: | | | | | | | [phone] | | | | | | | Fax: | | | | | | | [phone] | +--------+--------+ + + + + Encounter Details +--------+---------+ + + + | Date | Type | Department | Care Team | Description | +--------+---------+ + + + | 02/27/ | Office | [facility] | Simone Lopez, | Exudative | | 2018 | Visit | [place] [facility] | MD [address] | age-related macular | | | | [facility] | [address] | degeneration of left | | | | [place], [place] | [place], [place] | eye with active | | | | [address] | [address] | choroidal | | | | [phone] | [phone] | neovascularization | | | | | | ([facility]) (Primary Dx); | | | | | | Choroidal | | | | [...] documented as of this encounter Progress Notes Simone Lopez MD - 02/27/2018 3:50 PM PSTFormatting of this note might be different fr om the original. [facility] Progress Note 02/27/2018 Assessment & Plan: 78 y.o. 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 - Call for decreased vision, increased distortion, increased pain, new floaters or flashing lights Chief Complaint: Follow-up visit AMD - Age-related macular degeneration HPI (Edited by physician):Patient thinks his vision is 'about the same, maybe a little bett er.' No new floaters, distortions, or flashes of light. Current Outpatient Prescriptions (Ophthalmic Medications) Medication Sig [...] bedtime. risperiDONE Take 1 mg by mouth. Examination: See Ophthalmology Module Attestations: The metrology technician, under the supervision of the physician, is responsible for performing the f ollowing sections: RFV, ROS, PMH, PSH, SocHx, FH, Med list, Base Ophth Exam. The attending physician is responsible for the entire content of the note and has personall y performed the HPI and the physical examination SIMONE LOPEZ MD documented in this e ncounter Plan of Treatment Not on filedocumented as of this encounter Procedures + +--------+ + + + | Procedure Name | Priori | Date/Time | Associated Diagnosis | Comments | | | ty | | | | + +--------+ + + + | AVASTIN INJECTION - | Routin | 02/27/2018 | Exudative | Results for this | | OS - LEFT EYE | e | 4:49 PM | age-related macular | procedure are in the | | | | PST | degeneration of left | results section. | | | | | eye with active | | | | | | choroidal | | | | | | neovascularization | | | | | | (HCC) | | + +--------+ + + + | OCT, RETINA | Routin | 02/27/2018 | Choroidal | Results for this | | | e | 4:27 PM | neovascularization, | procedure are in the | | | | PST | left eye | results section. | + +--------+ + + + documented in this encounter Results AVASTIN INJECTION - OS - LEFT EYE (02/27/2018 4:49 PM PST) + + + | Narrative | Performed At | + + + | Pre-Procedure | | | Procedures, alternatives and risks discussed with patient. Questions | | | answered., confirmed correct patient, procedure, site and consent. | | | | | | | | | Anesthesia | | | Anesthesia: subconjunctival | | | Anesthetic Medication: Lidocaine 1% | | | | | | | | | Procedure | | | Preparation: betadine to ocular surface, eyelid speculum | | | | | | Needle: 30g | | | | | | | | | Injection: 1.25 mg bevacizumab 1.25 mg/0.05 mL | | | [facility]: [id number] | | | Lot: [id number] | | | Expiration Date: 04/22/2018 | | | Route: intravitreal | | | Site: Left Eye | | | | | | Estimated blood loss: none | | | | | | | | | Post Op | | | Post procedure assessment: visual acuity at least count fingers, eye | | | rinsed, patient tolerated procedure well | | | Patient reported pain is 0 on a 0-10 scale. | | + + + OCT, RETINA (02/27/2018 4:27 PM PST) + + + | Narrative | Performed At | + + + | Chief Of Staff Doctor | [facility] | | DocumentationRight EyeQuality: good Central macular | [facility] | | thickness: 240 Segmentation: accurate Left EyeQuality: | | | good Central macular thickness: 203 Segmentation: accurate | | | Provider DocumentationRight EyeContour: normal macula Fluid and | | | related findings: no fluid Left EyeContour: central | | | thickening Fluid and related findings: IRF, better, SRF Retinal | | | findings: (PED inferior to fovea) | | |Left Eye | | |Quality: good | | | | | |Central macular thickness: 203 | | |Segmentation: accurate | | | | | | | | |Provider Documentation | | |Right Eye | | |Contour: normal macula | | |Fluid and related findings: no fluid | | | | | | | | |Left Eye | | |Contour: central thickening | | |Fluid and related findings: IRF, better, SRF | | |Retinal findings: (PED inferior to fovea) | | + + + + + + + + | Performing | Address | City/State/Zipcode | Phone Number | | Organization | | | | + + + + + | [facility] | [address] | [place] [address] | | | INSTITUTE | [place]. | | | + + [...] + | bevacizumab (AVASTIN) | Given | 02/28/20 | 1.25 mg | | Left Eye | | intravitreal injection 1.25 mg | | 18 4:49 | | | | | 1.25 mg, ONCE PRN (IPROC), 1 | | PM PST | | | | | dose, Starting [facility] 02/27/18 at | | | | | | | 1649, Until [facility] 02/27/18 at 1649 | | | | | | + +--------+ +---------+------+ + +---+---+ | | | +---+---+ documented in this encounter"
--- OUTSIDE RECORDS SUMMARY | ~2018-08-24 | XMS | Encounter Summary ---
Demographics + + + | Address | [address] | | | [place] [address] | + + + | Home Phone [...] Author + + + | Author | [facility] | + + + | Organization | [facility] | + + + | Address | Unknown | + + + | Phone | Unavailable | + + + Care Team Providers + +------+ + | Care On Site Services Specialist Name | Role | Phone | + +------+ + | No Pcp Per Patient | PCP | Unavailable | + +------+ + Encounter Details +--------+ + + + + | Date | Type | Department | Care Team | Description | +--------+ + + + + | 04/30/ | Hospital | Radiation Oncology | | | | 2014 | Encounter | at [facility] [address] | | | | | | [address] | | | | | | [address]lon | | | | | | [place], | | | | | | [place] [address] | | | | | | [phone] | | | +--------+ + + + [...]
--- OUTSIDE RECORDS SUMMARY | ~2018-08-24 | XMS | Encounter Summary ---
Demographics + + + | Address | [address] | | | [place] [address] | + + + | Home Phone | | + + + | Preferred Language | Unknown | + + + | Marital Status | Single | + + + | Adventist Affiliation | UNK | + + + | Race | Unknown | + + + | Ethnic Group | Other Race | + + + Author + + + | Author | [facility] | + + + | Organization | [facility] | + + + | Address | Unknown | + + + | Phone | Unavailable | + + + Care Team Providers + +------+ + | Care Circulation Assistant Name | Role | Phone | [...] | +--------+ + + + + | 03/31/ | Documentati | Radiation Oncology | Ken Milton, | RT Simulation Note | | 2013 | on | at [facility] [address] | MD [address] [facility] | | | | | [facility] | [facility] | | | | | [place] | [place], [place] | | | | | [place], | [address] | | | | | [place] [address] | [phone] | | | | | [phone] | | | +--------+ + + + [...]
--- OUTSIDE RECORDS SUMMARY | ~2018-08-24 | XMS | Encounter Summary ---
Demographics + + + | Address | [address] | | | [place] [address] | + + + | Home Phone [...] Team Providers + +------+ + | Care Registered Nurse Cardiac Telemetry Name | Role | Phone | + [...] | | | | | | [place], | | | | | | [place] [address] | | | | | | [phone] | | | +--------+ + + + [...]
--- OUTSIDE RECORDS SUMMARY | ~2018-08-24 | XMS | Encounter Summary ---
Demographics + + + | Address | [address] | | | [place] [address] | + + + | Home Phone | | + + + | Preferred Language | Unknown | + + + | Marital Status | Single | + + + | Tenriism Affiliation | UNK | + + + | Race | Unknown | + + + | Ethnic Group | Other Race | + + + Author + + + | Author | [facility] | + + + | Organization | [facility] | + + + | Address | Unknown | + + + | Phone | Unavailable | + + + Care Team Providers + +------+ + | Care Soup Mixer Name | Role | Phone | + [...] | | 2013 | Visit | at [facility] [address] | [address] | (Primary Dx) | | | | [address] | [facility] | | | | | Jesse [address]lon | [place], [place] | | | | | [place], | [address] | | | | | [place] [address] | [phone] | | | | | [phone] | | | +--------+---------+ + + + [...] were reviewed. Cont RT. KEN MILTON MD [email or web address] - 04/17 2:22 PM PST Nursing Note [...] via scooter. Accompanied by self. Residing a [facility]. No acute distress noted. Nursing Plan: Continue supportive care. Will continue to monitor. documented in this encounter Plan of Treatment Not on filedocumented as of this encounter Visit Diagnoses + + | Diagnosis | + + | Radiotherapy - Primary | + + documented in this encounter
--- OUTSIDE RECORDS SUMMARY | ~2018-08-24 | XMS | Encounter Summary ---
Demographics + + + | Address | [address] | | | [place] [address] | + + + | Home Phone | | + + + | Preferred Language | Unknown | + + + | Marital Status | Single | + + + | Alevism Affiliation | UNK | + + + | Race | Unknown | + + + | Ethnic Group | Other Race | + + + Author + + + | Author | [facility] | + + + | Organization | [facility] | + + + | Address | Unknown | + + + | Phone | Unavailable | + + + Care Team Providers + +------+ + | Care Blocking Machine Tender Name | Role | Phone | + +------+ + | No Pcp Per Patient | PCP | Unavailable | + +------+ + Encounter Details +--------+ + + + + | Date | Type | Department | Care Team | Description | +--------+ + + + + | 04/10/ | Hospital | Radiation Oncology | | | | 2013 | Encounter | at [facility] [address] | | | | | | [address] | | | | | | [address] | | | | | | [place], | | | | | | [place] [address] | | | | | | [phone] | | | +--------+ + + + [...]
--- OUTSIDE RECORDS SUMMARY | ~2018-08-24 | XMS | Encounter Summary ---
Demographics + + + | Address | [address] | | | [place] [address] | + + + | Home Phone | | + + + | Preferred Language | Unknown | + + + | Marital Status | Single | + + + | Restorationist Affiliation | UNK | + + + | Race | Unknown | + + + | Ethnic Group | Other Race | + + + Author + + + | Author | [facility] | + + + | Organization | [facility] | + + + | Address | Unknown | + + + | Phone | Unavailable | + + + Care Team Providers + +------+ + | Care Baggage Clerk Name | Role | Phone | + +------+ + | No Pcp Per Patient | PCP | Unavailable | + +------+ + Reason for Referral PROC - Dept/Practice Procedure (Routine) +--------+--------+ + [...] | | | | cell lung | [place] | [address] | | | | | cancer (HCC) | A MEDICAL | [facility] | | | | | Procedures | CENTER [address] | Mailcode: | | | | | | [address] | [address] | | | | | SIMULATION, | [facility] | | | | | RADIATION | [address] | Hospital | | | | | [place] EST | [place], | [facility] | | | | | PATIENT | [place] [address] | [place], [place] | | | | | [place] | Phone: | [phone] | | | | | NEW PATIENT | [phone] | Phone: | | | | | LEVEL [place] | Fax: | [phone] | | | | | SET RADN | [phone] | Fax: | | | | | THERAPY | | [phone] | | | | | FIELD SIMPLE | | | | | | | [place] SET | | | | | | | RADN THERAPY | | | | | | | FIELD | | | | | | | COMPLEX [place] | | | | | | | RADN | | | | | | | TREATMENT | | | | | | | AID(S) | | | | | | | COMPLX [place] | | | | | | | RADIATION | | | | | | | THERAPY PLAN | | | | | | | COMPLEX [place] | | | | | | | RADIATION | | | | | | | THERAPY,DOSI | | | | | | | METRY PLAN | | | | | | | [place] SET RADN | | | | | | | THERAPY | | | | | | | FIELD 3D [place] | | | | | | | RADN | | | | | | | TREATMENT | | | | | | | AID(S) | | | | | | | COMPLX [place] | | | | | | | RADN RX | | | | | | | DELIVERY | | | | | | | COMPLX 11-19 | | | | | | | MEV [place] | | | | | | | STEREOSCOPIC | | | | | | | X-RAY GUIDE | | | | | | | [place] | | | | | | | [...] + + + + | 03/24/ | Career Placement Services Counselor | Radiation Oncology | Ken Milton, | Non-small cell lung | | 2013 | | at [facility] [address] | [address] | cancer (HCC) | | | | [address] | [address] | (Primary Dx) | | | | [address] | [place], [place] | | | | | [place], | [address] | | | | | [place] [address] | [phone] | | | | | [phone] | | | +--------+ + + + [...] of this encounter Plan of Treatment + + +--------+ + + | Name | Type | Priori | Associated Diagnoses | Order Schedule | | | | ty | | | + + +--------+ + + | SIMULATION, | Procedures | Routin | Non-small cell | Ordered: 03/24/2013 | | RADIATION | | e | lung cancer (HCC) | | + + +--------+ + + documented as of this encounter Visit Diagnoses + + | Diagnosis | + + | Non-small cell lung cancer (HCC) - Primary Malignant neoplasm of bronchus and lung, | | unspecified site | + + documented in this encounter"
--- OUTSIDE RECORDS SUMMARY | ~2018-08-24 | XMS | Encounter Summary ---
Demographics + + + | Address | [address] | | | [place] [address] | + + + | Home Phone | | + + + | Preferred Language | Unknown | + + + | Marital Status | Single | + + + | Anabaptist Affiliation | UNK | + + + | Race | Unknown | + + + | Ethnic Group | Other Race | + + + Author + + + | Author | [facility] | + + + | Organization | [facility] | + + + | Address | Unknown | + + + | Phone | Unavailable | + + + Care Team Providers + +------+ + | Care Middle Stitcher Name | Role | Phone | + [...] | | | | | | [place], | | | | | | [place] [address] | | | | | | [phone] | | | +--------+ + + + [...]
--- OUTSIDE RECORDS SUMMARY | ~2018-08-24 | XMS | Encounter Summary ---
Demographics + + + | Address | [address] | | | [place] [address] | + + + | Home Phone | | + + + | Preferred Language | Unknown | + + + | Marital Status | Single | + + + | Church Affiliation | UNK | + + + | Race | Unknown | + + + | Ethnic Group | Other Race | + + + Author + + + | Author | [facility] | + + + | Organization | [facility] | + + + | Address | Unknown | + + + | Phone | Unavailable | + + + Care Team Providers + +------+ + | Care Serger Name | Role | Phone | + +------+ + | No Pcp Per Patient | PCP | Unavailable | + +------+ + Encounter Details +--------+ + + + + | Date | Type | Department | Care Team | Description | +--------+ + + + + | 04/23/ | Hospital | Radiation Oncology | | | | 2014 | Encounter | at [facility] [address] | | | | | | [address] | | | | | | [address] | | | | | | [place], | | | | | | [place] [address] | | | | | | [phone] | | | +--------+ + + + [...]
--- OUTSIDE RECORDS SUMMARY | ~2018-08-24 | XMS | Encounter Summary ---
Demographics + + + | Address | [address] | | | [place] [address] | + + + | Home Phone | | + + + | Preferred Language | Unknown | + + + | Marital Status | Single | + + + | Pentecostalism Affiliation | UNK | + + + [...] Team Providers + +------+ + | Care Turbine Mechanic Name | Role | Phone | + +------+ + | No Pcp Per Patient | PCP | Unavailable | + +------+ + Encounter Details +--------+ + + + + | Date | Type | Department | Care Team | Description | +--------+ + + + + | 05/01/ | Document-Sc | Health Information | Unknown . | | | 2013 | anned | Services [address] | | | | | | [facility] | | | | | | Road Mailcode: | | | | | | [address] | | | | | | [facility] | | | | | | [place], [place] | | | | | | [address] | | | | | | [phone] | | | +--------+ + + + [...]
--- OUTSIDE RECORDS SUMMARY | ~2018-08-24 | XMS | Encounter Summary ---
Demographics + + + | Address | [address] | | | [place] [address] | + + + | Home Phone | | + + + | Preferred Language | Unknown | + + + | Marital Status | Single | + + + | Baptist Affiliation | UNK | + + + [...] Team Providers + +------+ + | Care Pumper Brewery Name | Role | Phone | + [...] W | | | | | | [facility] | | | | | | Road Mailcode: | | | | | | [address] | | | | | | [facility] | | | | | | [place], [place] | | | | | | [address] | | | | | | [phone] | | | +--------+ + + + [...]
--- OUTSIDE RECORDS SUMMARY | ~2018-08-24 | XMS | Encounter Summary ---
Demographics + + + | Address | [address] | | | [place] [address] | + + + | Home Phone [...] Author + + + | Author | [facility] | + + + | Organization | [facility] | + + + | Address | Unknown | + + + | Phone | Unavailable | + + + Care Team Providers + +------+ + | Care Airbrush Artist Technical Name | Role | Phone | + +------+ + | No Pcp Per Patient | PCP | Unavailable | + +------+ + Reason for Visit + + + | Reason | Comments | + + + | RT Plan Review Note | | + + + Encounter Details +--------+ + + + + | Date | Type | Department | Care Team | Description | +--------+ + + + + | 04/01/ | Documentati | Radiation Oncology | Ken Milton, | RT Plan Review Note | | 2013 | on | at [facility] [address] | MD [address] [facility] | | | | | [facility] | [facility] | | | | | Jesse [address]lon | [place], [place] | | | | | [place], | [address] | | | | | [place] [address] | [phone] | | | | | [phone] | | | +--------+ + + + [...]
--- OUTSIDE RECORDS SUMMARY | ~2018-08-24 | XMS | Encounter Summary ---
Demographics + + + | Address | [address] | | | [place] [address] | + + + | Home Phone | | + + + | Preferred Language | Unknown | + + + | Marital Status | Single | + + + | Denominational Affiliation | UNK | + + + [...] Team Providers + +------+ + | Care Deoiling Machine Operator Name | Role | Phone [...] | | | | | | [place], | | | | | | [place] [address] | | | | | | [phone] | | | +--------+ + + + [...]
--- OUTSIDE RECORDS SUMMARY | ~2018-08-24 | XMS | Encounter Summary ---
Demographics + + + | Address | [address] | | | [place] [address] | + + + | Home Phone [...] Team Providers + +------+ + | Care Emergency Dept Tech Name | Role | Phone | [...] | | | | cell lung | [place] | [address] | | | | | cancer (HCC) | A MEDICAL | [facility] | | | | | Procedures | C[address] | Mailcode: | | | | | | [address] | [address] | | | | | SIMULATION, | [facility] | | | | | RADIATION | [address] | Hospital | | | | | [place] EST | [place], | [facility] | | | | | PATIENT | [place] [address] | [place], [place] | | | | | L[place] | Phone: | [address] | | | | | NEW PATIENT | [phone] | Phone: | | | | | LEVEL [place] | Fax: | [phone] | | | | | SET RADN | [phone] | Fax: | | | | | THERAPY | | [phone] | | | | | FIELD SIMPLE | | | | | | | [place] SET | | | | | | | RADN THERAPY | | | | | | | FIELD | | | | | | | COMPLEX [place] | | | | | | | RADN | | | | | | | TREATMENT | | | | | | | AID(S) | | | | | | | COMPLX [place] | | | | | | | RADIATION | | | | | | | THERAPY PLAN | | | | | | | COMPLEX [place] | | | | | | | RADIATION | | | | | | | THERAPY,DOSI | | | | | | | METRY PLAN | | | | | | | [place] SET RADN | | | | | | | THERAPY | | | | | | | FIELD 3D [place] | | | | | | | RADN | | | | | | | TREATMENT | | | | | | | AID(S) | | | | | | | COMPLX [place] | | | | | | | RADN RX | | | | | | | DELIVERY | | | | | | | COMPLX 11-19 | | | | | | | MEV [place] | | | | | | | STEREOSCOPIC | | | | | | | X-RAY GUIDE | | | | | | | [place] | | | | | | | [...] + + + + | 03/24/ | Hydrostatic Tester | Radiation Oncology | Ken Milton, | Non-small cell lung | | 2013 | | at [facility] [address] | [address] | cancer (HCC) | | | | [address] | [address] | (Primary Dx) | | | | [address] | [place], [place] | | | | | [place], | [address] | | | | | [place] [address] | [phone] | | | | | [phone] | | | +--------+ + + + [...]
--- OUTSIDE RECORDS SUMMARY | ~2018-08-24 | XMS | Encounter Summary ---
Demographics + + + | Address | [address] | | | [place] [address] | + + + | Home Phone | | + + + | Preferred Language | Unknown | + + + | Marital Status | Single | + + + | Voodoo Affiliation | UNK | + + + [...] Team Providers + +------+ + | Care Car Groomer Name | Role | Phone | + [...] | | | | | | [place], | | | | | | [place] [address] | | | | | | [phone] | | | +--------+ + + + [...]
--- OUTSIDE RECORDS SUMMARY | ~2018-08-24 | XMS | Encounter Summary ---
Demographics + + + | Address | [address] | | | [place] [address] | + + + | Home Phone | | + + + | Preferred Language | Unknown | + + + | Marital Status | Single | + + + | Gnosticism Affiliation | UNK | + + + [...] Team Providers + +------+ + | Care Straight Truck Driver Name | Role | Phone | + +------+ + | No Pcp Per Patient | PCP | Unavailable | + +------+ + Encounter Details +--------+ + + + + | Date | Type | Department | Care Team | Description | +--------+ + + + + | 04/07/ | Hospital | Radiation Oncology | | | | 2013 | Encounter | at [facility] [address] | | | | | | [address] | | | | | | [address] | | | | | | [place], | | | | | | [place] [address] | | | | | | [phone] | | | +--------+ + + + [...]
--- OUTSIDE RECORDS SUMMARY | ~2018-08-24 | XMS | Encounter Summary ---
Demographics + + + | Address | [address] | | | [place] [address] | + + + | Home Phone | | + + + | Preferred Language | Unknown | + + + | Marital Status | Single | + + + | Amish Affiliation | UNK | + + + | Race | Unknown | + + + | Ethnic Group | Other Race | + + + Author + + + | Author | [facility] | + + + | Organization | [facility] | + + + | Address | Unknown | + + + | Phone | Unavailable | + + + Care Team Providers + +------+ + | Care Script Writer Name | Role | Phone | + [...] | | | | cell lung | [place] | [address] | | | | | cancer (HCC) | A MEDICAL | [facility] | | | | | Procedures | C[address] | Mailcode: | | | | | | [address] | [address] | | | | | SIMULATION, | [facility] | | | | | RADIATION | [address] | Hospital | | | | | [place] EST | [place], | [facility] | | | | | PATIENT | [place] [address] | [place], [place] | | | | | [place] | Phone: | [phone] | | | | | NEW PATIENT | [phone] | Phone: | | | | | L[place]EL [place] | Fax: | [phone] | | | | | SET RADN | [phone] | Fax: | | | | | THERAPY | | [phone] | | | | | FIELD SIMPLE | | | | | | | [place] SET | | | | | | | RADN THERAPY | | | | | | | FIELD | | | | | | | COMPLEX [place] | | | | | | | RADN | | | | | | | TREATMENT | | | | | | | AID(S) | | | | | | | COMPLX [place] | | | | | | | RADIATION | | | | | | | THERAPY PLAN | | | | | | | COMPLEX [place] | | | | | | | RADIATION | | | | | | | THERAPY,DOSI | | | | | | | METRY PLAN | | | | | | | [place] SET RADN | | | | | | | THERAPY | | | | | | | FIELD 3D [place] | | | | | | | RADN | | | | | | | TREATMENT | | | | | | | AID(S) | | | | | | | COMPLX [place] | | | | | | | RADN RX | | | | | | | DELIVERY | | | | | | | COMPLX 11-19 | | | | | | | MEV [place] | | | | | | | STEREOSCOPIC | | | | | | | X-RAY GUIDE | | | | | | | [place] | | | | | | | [...] | +--------+ + + + + | 04/20/ | Hospital | Radiation Oncology | | | | 2013 | Encounter | at [facility] [address] | | | | | | [address] | | | | | | [address] | | | | | | [place], | | | | | | [place] [address] | | | | | | [phone] | | | +--------+ + + + [...]
--- OUTSIDE RECORDS SUMMARY | ~2018-08-24 | XMS | Encounter Summary ---
Demographics + + + | Address | [address] | | | [place] [address] | + + + | Home Phone | | + + + | Preferred Language | Unknown | + + + | Marital Status | Single | + + + | Restorationism Affiliation | UNK | + + + | Race | Unknown | + + + | Ethnic Group | Other Race | + + + Author + + + | Author | [facility] | + + + | Organization | [facility] | + + + | Address | Unknown | + + + | Phone | Unavailable | + + + Care Team Providers + +------+ + | Care Inspector Casing Name | Role | Phone | + [...] | | 2015 | Visit-ECX | at [place] [address] | [address] | | | | | [facility] | [facility] | | | | | Mailcode: [address] | [place], [place] | | | | | [facility] | [address] | | | | | [place], [place] | [phone] | | | | | [address] | | | | | | [phone] | | | +--------+ + + + [...]
--- OUTSIDE RECORDS SUMMARY | ~2018-08-24 | XMS | Encounter Summary ---
Demographics + + + | Address | [address] | | | [place] [address] | + + + | Home Phone | | + + + | Preferred Language | Unknown | + + + | Marital Status | Single | + + + | Episcopal Affiliation | UNK | + + + [...] Team Providers + +------+ + | Care Creel Cleaner Name | Role | Phone | [...] | | | | cell lung | [place] | [facility] | | | | | cancer (HCC) | A MEDICAL | [facility] | | | | | Procedures | C[address] | Mailcode: | | | | | | [address] | [address] | | | | | SIMULATION, | [facility] | | | | | RADIATION | [address] | Hospital | | | | | [place] EST | [place], | [facility] | | | | | PATIENT | [place] [address] | [place], [place] | | | | | [place] | Phone: | [phone] | | | | | NEW PATIENT | [phone] | Phone: | | | | | L[place]EL [place] | Fax: | [phone] | | | | | SET RADN | [phone] | Fax: | | | | | THERAPY | | [phone] | | | | | FIELD SIMPLE | | | | | | | [place] SET | | | | | | | RADN THERAPY | | | | | | | FIELD | | | | | | | COMPLEX [place] | | | | | | | RADN | | | | | | | TREATMENT | | | | | | | AID(S) | | | | | | | COMPLX [place] | | | | | | | RADIATION | | | | | | | THERAPY PLAN | | | | | | | COMPLEX [place] | | | | | | | RADIATION | | | | | | | THERAPY,DOSI | | | | | | | METRY PLAN | | | | | | | [place] SET RADN | | | | | | | THERAPY | | | | | | | FIELD 3D [place] | | | | | | | RADN | | | | | | | TREATMENT | | | | | | | AID(S) | | | | | | | COMPLX [place] | | | | | | | RADN RX | | | | | | | DELIVERY | | | | | | | COMPLX 11-19 | | | | | | | MEV [place] | | | | | | | STEREOSCOPIC | | | | | | | X-RAY GUIDE | | | | | | | [place] | | | | | | | [...] | | | | | | [place] [address] | | | | | | [phone] | | | +--------+ + + + [...]
--- OUTSIDE RECORDS SUMMARY | ~2018-08-24 | XMS | Encounter Summary ---
Demographics + + + | Address | [address] | | | [place] [address] | + + + | Home Phone | | + + + | Preferred Language | Unknown | + + + | Marital Status | Single | + + + | Samaritan Affiliation | UNK | + + + | Race | Unknown | + + + | Ethnic Group | Other Race | + + + Author + + + | Author | [facility] | + + + | Organization | [facility] | + + + | Address | Unknown | + + + | Phone | Unavailable | + + + Care Team Providers + +------+ + | Care Car Dumper Operator Name | Role | Phone | [...] | | | | | | [place], | | | | | | [place] [address] | | | | | | [phone] | | | +--------+ + + + [...]
--- OUTSIDE RECORDS SUMMARY | ~2018-08-24 | XMS | Encounter Summary ---
Demographics + + + | Address | [address] | | | [place] [address] | + + + | Home Phone | | + + + | Preferred Language | Unknown | + + + | Marital Status | Single | + + + | Methodist Affiliation | UNK | + + + | Race | Unknown | + + + | Ethnic Group | Other Race | + + + Author + + + | Author | [facility] | + + + | Organization | [facility] | + + + | Address | Unknown | + + + | Phone | Unavailable | + + + Care Team Providers + +------+ + | Care Voice Over Artist Name | Role | Phone | + +------+ + | No Pcp Per Patient | PCP | Unavailable | + +------+ + Encounter Details +--------+ + + + + | Date | Type | Department | Care Team | Description | +--------+ + + + + | 05/01/ | Hospital | Radiation Oncology | | | | 2014 | Encounter | at [facility] [address] | | | | | | [address] | | | | | | [address] | | | | | | [place], | | | | | | [place] [address] | | | | | | [phone] | | | +--------+ + + + [...]
--- OUTSIDE RECORDS SUMMARY | ~2018-08-24 | XMS | Encounter Summary ---
Demographics + + + | Address | [address] | | | [place] [address] | + + + | Home Phone [...] Team Providers + +------+ + | Care Auto Garage Mechanic Name | Role | Phone | [...] | | | | | | [place], | | | | | | [place] [address] | | | | | | [phone] | | | +--------+ + + + [...]
--- OUTSIDE RECORDS SUMMARY | ~2018-08-24 | XMS | Encounter Summary ---
Demographics + + + | Address | [address] | | | [place] [address] | + + + | Home Phone [...] Team Providers + +------+ + | Care Draw Fire Operator Name | Role | Phone | [...] | | | | site | [place] [address] | [facility] | | | | | Procedures | Phone: | [facility] | | | | | [address] [facility] | [phone] | [place], [place] | | | | | [place] | Fax: | [phone] | | | | | [place] | [phone] | Phone: | | | | | | | [phone] | | | | | | | Fax: | | | | | | | [phone] | +--------+--------+ + + + + Reason [...] | | | | site | [place] [address] | [facility] | | | | | Procedures | Phone: | [facility]ilion | | | | | [address] [place] | [phone] | [place], [place] | | | | | [place] | Fax: | [phone] | | | | | [place] | [phone] | Phone: | | | | | | | [phone] | | | | | | | Fax: | | | | | | | [phone] | +--------+--------+ + + + + Encounter [...] | | | | | | [place], | | | | | | [place] [address] | | | | | | [phone] | | | +--------+ + + + [...]
--- OUTSIDE RECORDS SUMMARY | ~2018-08-24 | XMS | Encounter Summary ---
Demographics + + + | Address | [address] | | | [place] [address] | + + + | Home Phone | | + + + | Preferred Language | Unknown | + + + | Marital Status | Single | + + + | Congregational Affiliation | UNK | + + + [...] Team Providers + +------+ + | Care Line Out Worker Name | Role | Phone | [...] | | | | | | [place], | | | | | | [place] [address] | | | | | | [phone] | | | +--------+ + + + [...]
--- OUTSIDE RECORDS SUMMARY | ~2018-08-24 | XMS | Encounter Summary ---
Demographics + + + | Address | [address] | | | [place] [address] | + + + | Home Phone [...] Author + + + | Author | [facility] | + + + | Organization | [facility] | + + + | Address | Unknown | + + + | Phone | Unavailable | + + + Care Team Providers + +------+ + | Care Calender Machine Operator Helper Name | Role | Phone | [...] at [facility] [address] | [address] [facility] | | | | | [facility] | [facility] | | | | | [facility] | [place], [place] | | | | | [place], | [address] | | | | | [place] [address] | [phone] | | | | | [phone] | | | +--------+ + + + [...]
--- OUTSIDE RECORDS SUMMARY | ~2018-08-24 | XMS | Clinical Summary ---
Demographics + + + | Address | [address] | | | [place] [address] | + + + | Home Phone [...] Team Providers + +------+ + | Care Diesel Service Journeyman Name | Role | Phone | + +------+ + | No Pcp Per Patient | PP | Unavailable | + +------+ + Source Comments JENNIFER is fully live on both EpicCare Ambulatory and EpicCare InPatient.[facility] Allergies + + + + + [...] | + + + + + + Medications + + + +---------+------+------+-------+ | Medication | Sig | Dispensed | Refills | Star | End | Statu | | | | | | t | Date | s | | | | | | Date | | | + + + +---------+------+------+-------+ | aspirin EC 81 mg | Take 81 mg by mouth | | 0 | | | Activ | | oral tablet,delayed | once daily. | | | | | e | | release (DR/EC) | | | | | | | + + + +---------+------+------+-------+ | atenolol 25 mg | Take 25 mg by mouth | | 0 | | | Activ | | oral tablet | once daily. | | | | | e | + + + +---------+------+------+-------+ | | Instill 1 drop into | | 0 | | | Activ | | carboxymethylcellulo | both eyes once | | | | | e | | se 0.5 % ophthalmic | daily. | | | | | | | dropperette | | | | | | | + + + +---------+------+------+-------+ | gemfibrozil 600 mg | Take 600 mg by mouth | | 0 | | | Activ | | oral | two times daily. | | | | | e | | tabletIndications: | Indications: | | | | | | | hypertriglyceridemia | HYPERTRIGLYCERIDEMIA | | | | | | + + + +---------+------+------+-------+ | guaiFENesin LA 600 | Take 600 mg by mouth | | 0 | | | Activ | | mg oral tablet | twice daily as | | | | | e | | extended release | needed. | | | | | | + + + +---------+------+------+-------+ | loratadine 10 mg | Take 10 mg by mouth | | 0 | | | Activ | | oral tablet | once daily. | | | | | e | + + + +---------+------+------+-------+ | metFORMIN 850 mg | Take 850 mg by mouth | | 0 | | | Activ | | oral tablet | two times daily. | | | | | e | + + + +---------+------+------+-------+ | niacin 500 mg oral | Take 500 mg by mouth | | 0 | | | Activ | | tablet | once daily at | | | | | e | | | bedtime. | | | | | | + + + +---------+------+------+-------+ | nitroglycerin 0.4 | Place 0.4 mg under | | 0 | | | Activ | | mg [...] | | | | + + + +---------+------+------+-------+ | cholecalciferol, | Take 2,000 Units by | | 0 | | | Activ | | Vitamin D3, 1,000 | mouth once daily. | | | | | e | | unit oral tablet | | | | | | | + + + +---------+------+------+-------+ | desonide 0.05 % | Apply to affected | | 0 | | | Activ | | topical cream | area two times | | | | | e | | | daily. Apply | | | | | | | | sparingly. | | | | | | + + + +---------+------+------+-------+ | fluorouracil 5 % | Apply to affected | | 0 | | | Activ | | topical [...] | | | | + + + +---------+------+------+-------+ | omeprazole 20 mg | Take 20 mg by mouth | | 0 | | | Activ | | oral capsule,delayed | once daily. | | | | | e | | release(DR/EC) | | | | | | | + + + +---------+------+------+-------+ | docusate sodium | Take 250 mg by mouth | | 0 | | | Activ | | 250 mg oral capsule | twice daily as | | | | | e | | | needed. | | | | | | + + + +---------+------+------+-------+ | gabapentin 600 mg | Take 600 mg by mouth | | 0 | | | Activ | | oral tablet | three times daily. | | | | | e | + + + +---------+------+------+-------+ | pravastatin 80 mg | Take 80 mg by mouth | | 0 | | | Activ | | oral tablet | once daily at | | | | | e | | | bedtime. | | | | | | + + + +---------+------+------+-------+ | risperiDONE 1 mg | Take 1 mg by mouth. | | 0 | | | Activ | | oral tablet | | | | | | e | + + + +---------+------+------+-------+ | MOMETASONE FUROATE | Instill in nose two | | 0 | | | Activ | | (MOMETASONE NASL) | times daily. | | | | | e | + + + +---------+------+------+-------+ | | Take 1 tablet by | | 0 | | | Activ | | HYDROcodone-acetamin [...] | | | | + + + +---------+------+------+-------+ | | Inhale 2 puffs two | | 0 | | | Activ | | budesonide-formotero | times daily. | | | | | e | | l 160-4.5 | | | | | | | | mcg/actuation | | | | | | | | inhalation HFA | | | | | | | | aerosol inhaler | | | | | | | + + + +---------+------+------+-------+ | ferrous sulfate | Take 325 mg by mouth | | 0 | | | Activ | | 325 mg (65 mg iron) | once daily. | | | | | e | | oral tablet | | | | | | | + + + +---------+------+------+-------+ | albuterol 90 | Inhale 2 puffs every | | 0 | | | Activ | | mcg/actuation | four hours as | | | | | e | | inhalation HFA | needed. | | | | | | | aerosol inhaler | | | | | | | + + + +---------+------+------+-------+ | isosorbide | Take 30 mg by mouth | | 0 | | | Activ | | mononitrate CR 30 mg | once daily. | | | | | e | | oral tablet | | | | | | | | extended release 24 | | | | | | | | hr | | | | | | | + + + +---------+------+------+-------+ | magnesium oxide | Take 250 mg by mouth | | 0 | | | Activ | | 250 mg oral tablet | once daily. | | | | | e | + + + +---------+------+------+-------+ | atorvastatin 20 mg | Take 20 mg by mouth | | 0 | | | Activ | | oral tablet | once daily at | | | | | e | | | bedtime. | | | | | | + + + +---------+------+------+-------+ Active Problems + + + | Problem | Noted Date | + + + | Exudative AMD with active CNV, left eye | 01/22/2018 | + + + + + | Last Assessment & Plan: Better | | PARQ for Avastin | + + + + + | Choroidal neovascularization, left eye | 01/21/2018 | + + + + + | Overview: Referred from [facility] for evaluation of | | presumed CSCR OS but OCT and FA appear more consistent with | | occult CNV with no clear hot spots on ICG. Last Assessment & | | Plan: Referred for presumed CSCR OS but OCT with shallow PED | | and FA more consistent with occult CNV most likely due to AMD. No | | clear hot spots on ICG. No other macular degeneration changes. | | Recommend initiating Avastin today.- Avastin left eye today. | + + + + + | Non-small cell lung cancer | 03/24/2013 | + + + Family History + + +------+ + | Medical History | Relation | Name | Comments | + + +------+ + | Glasses | Father | | | + + +------+ + | Diabetes | Maternal | | | | | Grandmoth | | | | | er | | | + + +------+ + | Glasses | Mother | | | + + +------+ + | Amblyopia | Neg Hx | | | + + +------+ + | Blindness | Neg Hx | | | + + +------+ + | Cancer | Neg Hx | | | + + +------+ + | Cataracts | Neg Hx | | | + + +------+ + | Glaucoma | Neg Hx | | | + + +------+ + | Macular degeneration | Neg Hx | | | + + +------+ + | Retinal detachment | Neg Hx | | | + + +------+ + | Retinitis pigmentosa | Neg Hx | | | + + +------+ + + +------+--------+ + | Relation | Name | Status | Comments | + +------+--------+ + | Father | | | | + +------+--------+ + | Maternal Grandmother | | | | + +------+--------+ + | Mother | | | | + +------+--------+ + Social History + + + +--------+------+ [...] recent travel history available. | + + Last Filed Vital Signs + + + + + | Vital Sign | Reading | Time Taken | Comments | + + + + + | Blood Pressure | 110/72 | 05/01/2013 11:25 AM | | | | | PST | | + + + + + | Pulse | 73 | 05/01/2013 11:25 AM | | | | | PST | | + + + + + | Temperature | 36.3 C (97.4 F) | 05/01/2013 11:25 AM | | | | | PST | | + + + + + | Respiratory Rate | - | - | | + + + + + | Oxygen Saturation | 94% | 05/01/2013 11:25 AM | | | | | PST | | + + + + + | Inhaled Oxygen | - | - | | | Concentration | | | | + + + + + | Weight | 90.3 kg (199 lb) | 05/01/2013 11:25 AM | | | | | PST | | + + + + + | Height | - | - | | + + + + + | Body Mass Index | - | - | | + + + + + Plan of Treatment + + + + + | Health Maintenance | Due Date | Last Done | Comments | + + + + + | Pneumococcal | | | | | vaccination (1 of 2 | 4 | | | | - PCV13) | | | | + + + + + | Influenza (Flu) | | | | | vaccination (Season | 9 | | | | Ended) | | | | + + + + + Results Not on filefrom Last 3 Months Insurance + +--------+ +--------+ + +--------+ | Payer | Benefi | Subscriber | Effect | Phone | Address | Type | | | t Plan | ID | penny | | | | | | / | | Dates | | | | | | Group | | | | | | + +--------+ +--------+ + +--------+ | [place] | [place] | [phone] | Effect | [phone] | [address] | Agency | | ADMINISTRATION | COMMUN | | penny | [phone] | | | | ITY | | for | | [place], | | | | [place] | | all | | [place] [address] | | | | RCE | | dates | | | | + +--------+ +--------+ + +--------+ + +--------+ +--------+ + + | Guarantor Name | Accoun | Relation to | Date | Phone | Billing Address | | | t Type | Patient | of | | | | | | | | | | + +--------+ +--------+ + + | Renny Moss | Person | Self | [birth year] | [address] | | [place] | natalie/Yazan | | 1940 | [phone] | [place] | | | ap | | | 2 (Home) | [address] | + +--------+ +--------+ + + | Renny Moss | [place] | Self | [birth year] | [address] | | [place] | [place] | | 1940 | [phone] | [place] | | | kira | | | [address] ([place]) | [address] | + +--------+ +--------+ + +"
--- OUTSIDE RECORDS SUMMARY | ~2018-08-24 | XMS | Encounter Summary ---
Demographics + + + | Address | [address] | | | [place] [address] | + + + | Home Phone [...] Author + + + | Author | [facility] | + + + | Organization | [facility] | + + + | Address | Unknown | + + + | Phone | Unavailable | + + + Care Team Providers + +------+ + | Care Grapple Yarder Operator Name | Role | Phone | [...] [facility] | | | | | Lung cancer | Roldan Nath MD | [address] | | | | | (HCC) | [address] | [address] | | | | | Procedures | [facility] | [address] | | | | | [address] [place]ULL | [facility] | [address] | | | | | BASE TO | [place], | Pavilion | | | | | [place] | [place] [address] | [address] | | | | | | Phone: | Pavilion | | | | | | [phone] | [place], [place] | | | | | | Fax: | [address] | | | | | | [phone] | Phone: | | | | | | | [phone] | | | | | | | Fax: | | | | | | | [phone] | +--------+--------+ + + + + Reason [...] [facility] | | | | | Lung cancer | Roldan Nath MD | [address] | | | | | (HCC) | [address] | [address] | | | | | Procedures | [facility] | [address] | | | | | [place]ULL | [facility] [address] | [address] | | | | | BASE TO | [place], | Pavilion | | | | | [place] | [place] [address] | [address] | | | | | | Phone: | Pavilion | | | | | | [phone] | [place], [place] | | | | | | Fax: | [address] | | | | | | [phone] | Phone: | | | | | | | [phone] | | | | | | | Fax: | | | | | | | [phone] | +--------+--------+ + + + + Encounter Details +--------+ + + + + | Date | Type | Department | Care Team | Description | +--------+ + + + + | 02/19/ | Hospital | Radiation Oncology | | | | 2013 | Encounter | at [facility] [address] | | | | | | [address] | | | | | | [address] | | | | | | [place] | | | | | | [place], | | | | | | [place] [address] | | | | | | [phone] | | | +--------+ + + + [...] BASE TO | Imaging | Routin | Lung cancer (HCC) | 02/19/2013 3:13 PM | | [place] | | e | | PST | + +---------+--------+ + + documented as of this encounter Procedures + +--------+ + + + | Procedure Name | Priori | Date/Time | Associated Diagnosis | Comments | | | ty | | | | + +--------+ + + + | ORDERS OTHER | | 02/19/2013 | | Results for this | | | | 12:00 AM | | procedure are in the | | | | PST | | results section. | + +--------+ + + + | ORDERS OTHER | | 02/19/2013 | | Results for this | | | | 12:00 AM | | procedure are in the | | | | PST | | results section. | + +--------+ + + + documented in this encounter Results ORDERS OTHER (02/19/2013 12:00 AM PST) + + + | Narrative | Performed At | + + + | | | | | | + + + + + | Procedure Note | + + | Radha Faculty - 04/13/2013 2:35 PM PST | + + ORDERS OTHER (02/19/2013 12:00 AM PST) + + + | Narrative | Performed At | + + + | | | | | | + + + + + | Procedure Note | + + | Israel Garcia - 03/05/2013 10:48 AM PST | + + documented in this encounter Visit Diagnoses + + | Diagnosis | + + | Lung cancer (HCC) Malignant neoplasm of bronchus and lung, unspecified site | + + documented in this encounter"
--- OUTSIDE RECORDS SUMMARY | ~2018-08-24 | XMS | Encounter Summary ---
Demographics + + + | Address | [address] | | | [place] [address] | + + + | Home Phone | | + + + | Preferred Language | Unknown | + + + | Marital Status | Single | + + + | Christian Affiliation | UNK | + + + | Race | Unknown | + + + | Ethnic Group | Other Race | + + + Author + + + | Author | [facility] | + + + | Organization | [facility] | + + + | Address | Unknown | + + + | Phone | Unavailable | + + + Care Team Providers + +------+ + | Care Burner Tender Name | Role | Phone | [...] | cancer (HCC) | [facility] | [facility] | | | | | Procedures | CENTER [address] | Mailcode: | | | | | | [address] | [address] | | | | | SIMULATION, | [facility] | | | | | RADIATION | [address]OS[address] | Hospital | | | | | MS EST | [place], | [facility] | | | | | PATIENT | [place] [address] | [place], [place] | | | | | LEVEL V MS | Phone: | [phone] | | | | | NEW PATIENT | [phone] | Phone: | | | | | LEVEL V MS | Fax: | [phone] | | | | | SET RADN | [phone] | Fax: | | | | | THERAPY | | [phone] | | | | | FIELD SIMPLE | | | | | | | MS SET | | | | | | | RADN THERAPY | | | | | | | FIELD | | | | | | | COMPLEX MS | | | | | | | RADN | | | | | | | TREATMENT | | | | | | | AID(S) | | | | | | | COMPLX MS | | | | | | | RADIATION | | | | | | | THERAPY PLAN | | | | | | | COMPLEX MS | | | | | | | RADIATION | | | | | | | THERAPY,DOSI | | | | | | | METRY PLAN | | | | | | | MS SET RADN | | | | | | | THERAPY | | | | | | | FIELD 3D MS | | | | | | | RADN | | | | | | | TREATMENT | | | | | | | AID(S) | | | | | | | COMPLX MS | | | | | | | RADN RX | | | | | | | DELIVERY | | | | | | | COMPLX 11-19 | | | | | | | MEV MS | | | | | | | STEREOSCOPIC | | | | | | | X-RAY GUIDE | | | | | | | MS | | | | | | | [...] | +--------+ + + + + | 04/16/ | Hospital | Radiation Oncology | | | | 2013 | Encounter | at [facility] [address] | | | | | | [address] | | | | | | [address] | | | | | | [place], | | | | | | [place] [address] | | | | | | [phone] | | | +--------+ + + + [...]
--- OUTSIDE RECORDS SUMMARY | ~2018-08-24 | XMS | Encounter Summary ---
Demographics + + + | Address | [address] | | | [place] [address] | + + + | Home Phone | | + + + | Preferred Language | Unknown | + + + | Marital Status | Single | + + + | Adventism Affiliation | UNK | + + + [...] Team Providers + +------+ + | Care Dust Mop Maker Name | Role | Phone | + [...] | | 2013 | Visit | at [facility] [address] | [place], [address] [address] | (Primary Dx) | | | | [address] | [facility] [address] | | | | | [place] [address] | [place] | | | | | [place], | [address] | | | | | [place] [address] | [phone] | | | | | [phone] | | | +--------+---------+ + + + [...] free to contact us with further questions: [phone] documented in this encounter Progress Notes Vicenta [...] Accompanied by self. Pt colin gorman at [facility]. Nursing Plan: Continue supportive care. Will continue to monitor. documented in this encounter Plan of Treatment Not on filedocumented as of this encounter Visit Diagnoses + + | Diagnosis | + + | Radiotherapy - Primary | + + documented in this encounter"
--- OUTSIDE RECORDS SUMMARY | ~2018-08-24 | XMS | Encounter Summary ---
Demographics + + + | Address | [address] | | | [place] [address] | + + + | Home Phone | | + + + | Preferred Language | Unknown | + + + | Marital Status | Single | + + + | Mandaen Affiliation | UNK | + + + [...] Team Providers + +------+ + | Care Magazine Designer Name | Role | Phone | [...] | | | | [address]ULL | [facility] | [address] | | | | | BASE TO | [facility], | Pavilion | | | | | [place] | [place] [address] | [address] | | | | | | Phone: | Pavilion | | | | | | [phone] | [place], [place] | | | | | | Fax: | [address] | | | | | | [phone] | Phone: | | | | | | | [phone] | | | | | | | Fax: | | | | | | | [phone] | +--------+--------+ + + + + Encounter Details +--------+ + + + + | Date | Type | Department | Care Team | Description | +--------+ + + + + | 02/05/ | Outside | Radiation Oncology | Frankie Roldan Nath, | | | 2012 | Referral | at [facility] [address] | MD [address] | | | | Order | [facility] | [place] [address] | | | | | Road [address] | | | | | | [place] | | | | | | Pav[place], | | | | | | [place] [address] | | | | | | [phone] | | | +--------+ + + + [...] | PST | + +---------+--------+ + + + +---------+--------+ + + | Name | Type | Priori | Associated Diagnoses | Order Schedule | | | | ty | | | + +---------+--------+ + + | [facility] BASE TO | Imaging | Routin | Lung cancer (HCC) | Expected: | | [place] | | e | | 02/05/2013, Expires: | | | | | | 03/07/2014 | + +---------+--------+ + + documented as of this encounter Visit Diagnoses + + | Diagnosis | + + | Lung cancer (HCC) - Primary Malignant neoplasm of bronchus and lung, unspecified site | + + documented in this encounter"
--- OUTSIDE RECORDS SUMMARY | ~2018-08-24 | XMS | Encounter Summary ---
Demographics + + + | Address | [address] | | | [place] [address] | + + + | Home Phone [...] Author + + + | Author | [facility] | + + + | Organization | [facility] | + + + | Address | Unknown | + + + | Phone | Unavailable | + + + Care Team Providers + +------+ + | Care Sulfuric Acid Plant Operator Name | Role | Phone | [...] | | | | Epic Dept | [address] | | | | | DIAGNOSTICS | | [place] | | | | | [place] | | [address] | | | | | | | Mailcode: [facility] | | | | | | | [facility] | | | | | | | [place] [address] | | | | | | | Phone: | | | | | | | [phone] | | | | | | | Fax: | | | | | | | [phone] | +--------+--------+ + + + + Encounter Details +--------+---------+ + + + | Date | Type | Department | Care Team | Description | +--------+---------+ + + + | 02/27/ | Office | [facility] | Simone Lopez, | Exudative | | 2018 | Visit | [place] [facility] | MD [address] | 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 [facility] Progress Note 02/27/2018 Assessment & Plan: 78 [...] mouth. Examination: See Ophthalmology Module Attestations: The hospital laboratory technician, under the supervision of the physician, [...] bevacizumab 1.25 mg/0.05 mL | | | [facility]: [id number] | | | Lot: [id number] | | | Expiration Date: 04/22/2018 | [...] Performed At | + + + | Ceramics Instructor | [facility] | | DocumentationRight EyeQuality: [...] [facility] | [address] | [place] [address] | | | INSTITUTE | Norma. | [...] | | | | | dose, Starting [facility] 02/27/18 at | | | | | | | 1649, Until [facility] 02/27/18 at 1649 | | | | | | + +--------+ +---------+------+ + +---+---+ | | | +---+---+ documented in this encounter"
--- OUTSIDE RECORDS SUMMARY | ~2018-08-24 | XMS | Clinical Summary ---
Demographics + + + | Address | [address] | | | [place] [address] | + + + | Home Phone | | + + + | Preferred Language | Unknown | + + + | Marital Status | | + + + | Confucianism Affiliation | Unknown | + + + | Race | Unknown | + + + | Ethnic Group | Unknown | + + + Author + + + | Author | [facility] | + + + | Organization | [facility] | + + + | Address | Unknown | + + + | Phone | Unavailable | + + + Support + + +---------+ + | Name | Relationship | Address | Phone | + + +---------+ + | Tutu Heck | BETO | Unknown | | + + +---------+ + | Rodo Moss | ECON | Unknown | | + + +---------+ + | Lesley Moss | ECON | Unknown | | + + +---------+ + Care Team Providers + +------+ + | Care Hospitality Coordinator Name | Role | Phone | + +------+ + | Chen Bailey | PP | | | [employer] DRIVER | | | + +------+ + Allergies + + [...] | | | | | | | [place] 1 mL (1 mg) in | | [...] + + + | Facet arthropathy, lumbar | 01/30/2017 | + + + [...] Osteoarthritis | 01/29/2017 | + + + Family History + [...] + + + + | Vaccine: Zoster (1 | | | | | of 2) | 9 | | | + + + + + | Vaccine: | | | | | Pneumococcal 65+ | 4 | | | | Low/Medium Risk (1 | | | | | of 2 - PCV13) | | | | + + + + + | Vaccine: Influenza | | | | | (Season Ended) | 9 | | | + + + + + Results Not on filefrom Last 3 Months Insurance + +--------+ +------+ + + | Payer | Benefi | Subscriber | Type | Phone | Address | | | t Plan | ID | | | | | | / | | | | | | | Group | | | | | + +--------+ +------+ + + | [place] | [id number] | [phone] [employer]EE SERVICES [id number] | | ADMINISTRATION | CHOICE | | | [phone] | [id number] | | | | | | [address] [place], [place] | | | | | | | [phone] | + +--------+ +------+ + + + +--------+ +--------+ + + | Guarantor Name | Accoun | Relation to | Date | Phone | Billing Address | | | t Type | Patient | of | | | | | | | | | | + +--------+ +--------+ + + | SUSAN MOSS | [place] | Self [birth year] Home: | [address] | | | ns | | 1940 | [phone] [place] | | | Admini | | | [address] | [address] | | | [place] | | | | | | | on | | | | | + +--------+ +--------+ + +
--- OUTSIDE RECORDS SUMMARY | ~2018-08-24 | XMS | Clinical Summary ---
Demographics + + + | Address | [address] | | | [place] [address] | + + + | Home Phone | | + + + | Preferred Language | Unknown | + + + | Marital Status | | + + + | Nondenominational Affiliation | Unknown | + + + | Race | Unknown | + + + | Ethnic Group | Unknown | + + + Author + + + | Author | [facility] | + + + | Organization | [facility] | + + + | Address [...] Team Providers + +------+ + | Care Ux Interaction Designer Name | Role | Phone | + +------+ + | Chen Bailey | PP | | | AIRCRAFT POWER PLANT ASSEMBLER | | | + +------+ + Allergies [...] | | | | | | | [place] 1 mL (1 mg) in | | [...] + + | [place] | [place] | [phone] | [phone] [employer]EE SERVICES [id number] | | ADMINISTRATION | CHOICE | | | [phone] | [phone] | | | | | | [address] [place], [place] | | | | | | | [address] | + +--------+ +------+ + + + [...] | Admini | | | [address] | [address] | | | amari | | | | | | | on | | | | | + +--------+ +--------+ + +
--- OUTSIDE RECORDS SUMMARY | ~2018-08-24 | XMS | Encounter Summary ---
Demographics + + + | Address | [address] | | | [place] [address] | + + + | Home Phone | | + + + | Preferred Language | Unknown | + + + | Marital Status | Single | + + + | Sabianism Affiliation | UNK | + + + [...] Team Providers + +------+ + | Care Manufacturing Engineer Chief Name | Role | Phone | + +------+ + | No Pcp Per Patient | PCP | Unavailable | + +------+ + Encounter Details +--------+ + + + + | Date | Type | Department | Care Team | Description | +--------+ + + + + | 04/15/ | Hospital | Radiation Oncology | | | | 2014 | Encounter | at [facility] [address] | | | | | | [address] | | | | | | Jesse Scanlon | | | | | | [place], | | | | | | [place] [address] | | | | | | [phone] | | | +--------+ + + + [...]
--- OUTSIDE RECORDS SUMMARY | ~2018-08-24 | XMS | Encounter Summary ---
Demographics + + + | Address | [address] | | | [place] [address] | + + + | Home Phone | | + + + | Preferred Language | Unknown | + + + | Marital Status | Single | + + + | Uatsdin Affiliation | UNK | + + + [...] Team Providers + +------+ + | Care Punch Press Operator Name | Role | Phone [...] [facility] [address] | MD [address] [facility] | | | | | Rodo [facility] | [facility] | | | | | Jesse Scanlon | [place], [place] | | | | | [place], | [address] | | | | | [place] [address] | [phone] | | | | | [phone] | | | +--------+ + + + [...]
--- OUTSIDE RECORDS SUMMARY | ~2018-08-24 | XMS | Encounter Summary ---
Demographics + + + | Address | [address] | | | [place] [address] | + + + | Home Phone | | + + + | Preferred Language | Unknown | + + + | Marital Status | Single | + + + | Catholic Affiliation | UNK | + + + | Race | Unknown | + + + | Ethnic Group | Other Race | + + + Author + + + | Author | [facility] | + + + | Organization | [facility] | + + + | Address | Unknown | + + + | Phone | Unavailable | + + + Care Team Providers + +------+ + | Care Emissions Technician Name | Role | Phone | + [...] | | | | PET SKULL | [facility] | [address] | | | | | BASE TO | [facility], | Pavilion | | | | | [place] | [place] [address] | [address] | | | | | | Phone: | Pavilion | | | | | | [phone] | [place], [place] | | | | | | Fax: | [address] | | | | | | [phone] | Phone: | | | | | | | [phone] | | | | | | | Fax: | | | | | | | [phone] | +--------+--------+ + + + + Encounter [...] Ave | | | | Order | [facility] | [place] [address] | | | | | Road [address] | | | | | | [place] | | | | | | Pavilion [place], | | | | | | [place] [address] | | | | | | [phone] | | | +--------+ + + + [...]
--- OUTSIDE RECORDS SUMMARY | ~2018-08-24 | XMS | Encounter Summary ---
Demographics + + + | Address | [address] | | | [place] [address] | + + + | Home Phone [...] + + | Author | [facility] | + + + | Organization | [facility] | + + + | Address | Unknown | + + + | Phone | Unavailable | + + + Care Team Providers + +------+ + | Care Senior It Security Analyst Name | Role | Phone | [...] | | 2013 | Visit | at [facility] [address] | [address] | (Primary Dx) | | | | [address] | [facility] | | | | | Jesse Scanlon | [place], [place] | | | | | [place], | [address] | | | | | [place] [address] | [phone] | | | | | [phone] | | | +--------+---------+ + + + [...] kg (197 lb 6.4 oz) Renny Toure [facility]'s mode of transportation is ambulatory. Gen: Alert, [...] by self. Pt meli ann residing at [facility]. Pt request to receive BID [...]
--- OUTSIDE RECORDS SUMMARY | ~2018-08-24 | XMS | Encounter Summary ---
Demographics + + + | Address | [address] | | | [place] [address] | + + + | Home Phone [...] Author + + + | Author | [facility] | + + + | Organization | [facility] | + + + | Address | Unknown | + + + | Phone | Unavailable | + + + Care Team Providers + +------+ + | Care Marketing Support Assistant Name | Role | Phone | [...] | | | | | | [place], | | | | | | [place] [address] | | | | | | [phone] | | | +--------+ + + + [...]
--- OUTSIDE RECORDS SUMMARY | ~2018-08-24 | XMS | Clinical Summary ---
Demographics + + + | Address | [address] | | | [place] [address] | + + + | Home Phone [...] Team Providers + +------+ + | Care Trenching Machine Operator Name | Role | Phone | + +------+ + | No Pcp Per Patient | PP | Unavailable | + +------+ + Source Comments JENNIFER is fully live on both EpicCare Ambulatory and EpicCare InPatient.Formerly [facility] Allergies + + + + + [...] + + + | Overview: Referred from [facility] for evaluation of | | presumed CSCR [...] | [place] | xxxxxxxxx | Effect | [phone] | [address] | Agency | | ADMINISTRATION | COMMUN | | penny | 8 | [phone] | | | | ITY | | for | | [place], | | | | OUTSOU | | all | | [place] [address] | | | | RCE | | [...] [place] | natalie/Yazan | | 1940 | [phone] | [place] | | | ap | | | 2 (Home) | [address] | + +--------+ +--------+ + + | Renny Moss | [place] | Self | [birth year] | | [address] | | Mes[place] | [place] | | 1940 | [phone] | [place] | | | kira | | | [address] ([place]) | [address] | + +--------+ +--------+ + +"
--- OUTSIDE RECORDS SUMMARY | ~2018-08-24 | XMS | Encounter Summary ---
Demographics + + + | Address | [address] | | | [place] [address] | + + + | Home Phone | | + + + | Preferred Language | Unknown | + + + | Marital Status | Single | + + + | Hoahaoism Affiliation | UNK | + + + [...] Team Providers + +------+ + | Care Rural Carrier Name | Role | Phone | + [...] at [facility] [address] | [address] [facility] | Treatment Planning | | | | [address] | [address] | Note | | | | Jesse Scanlon | [place], [place] | | | | | [place], | [address] | | | | | [place] [address] | [phone] | | | | | [phone] | | | +--------+ + + + [...]
--- OUTSIDE RECORDS SUMMARY | ~2018-08-24 | XMS | Encounter Summary ---
Demographics + + + | Address | [address] | | | [place] [address] | + + + | Home Phone | | + + + | Preferred Language | Unknown | + + + | Marital Status | Single | + + + | Gnosticist Affiliation | UNK | + + + [...] Providers + +------+ + | Care Production Maintenance Mechanic Name | Role | Phone | [...] | | | | | | [place], | | | | | | [place] [address] | | | | | | [phone] | | | +--------+ + + + [...]
--- OUTSIDE RECORDS SUMMARY | ~2018-08-24 | XMS | Encounter Summary ---
Demographics + + + | Address | [address] | | | [place] [address] | + + + | Home Phone | | + + + | Preferred Language | Unknown | + + + | Marital Status | Single | + + + | Jew Affiliation | UNK | + + + | Race | Unknown | + + + | Ethnic Group | Other Race | + + + Author + + + | Author | [facility] | + + + | Organization | [facility] | + + + | Address | Unknown | + + + | Phone | Unavailable | + + + Care Team Providers + +------+ + | Care Pharmacy Helper Name | Role | Phone | + +------+ + | No Pcp Per Patient | PCP | Unavailable | + +------+ + Encounter Details +--------+ + + + + | Date | Type | Department | Care Team | Description | +--------+ + + + + | 04/03/ | Hospital | Radiation Oncology | | | | 2014 | Encounter | at [facility] [address] | | | | | | [address] | | | | | | [place] | | | | | | [place], | | | | | | [place] [address] | | | | | | [phone] | | | +--------+ + + + [...]
--- OUTSIDE RECORDS SUMMARY | ~2018-08-24 | XMS | Encounter Summary ---
Demographics + + + | Address | [address] | | | [place] [address] | + + + | Home Phone | | + + + | Preferred Language | Unknown | + + + | Marital Status | Single | + + + | Quaker Affiliation | UNK | + + + | Race | Unknown | + + + | Ethnic Group | Other Race | + + + Author + + + | Author | [facility] | + + + | Organization | [facility] | + + + | Address | Unknown | + + + | Phone | Unavailable | + + + Care Team Providers + +------+ + | Care Wedding Transportation Driver Name | Role | Phone | [...] | | | | cell lung | [place] | [address] | | | | | cancer (HCC) | A MEDICAL | [facility] | | | | | Procedures | CENTER [address] | Mailcode: | | | | | | [address] | [address] | | | | | SIMULATION, | [facility] | | | | | RADIATION | [address] | Hospital | | | | | [place] EST | [place], | [facility] | | | | | PATIENT | [place] [address] | [place], [place] | | | | | [place] | Phone: | [phone] | | | | | NEW PATIENT | [phone] | Phone: | | | | | LEVEL [place] | Fax: | [phone] | | | | | SET RADN | [phone] | Fax: | | | | | THERAPY | | [phone] | | | | | FIELD SIMPLE | | | | | | | [place] SET | | | | | | | RADN THERAPY | | | | | | | FIELD | | | | | | | COMPLEX [place] | | | | | | | RADN | | | | | | | TREATMENT | | | | | | | AID(S) | | | | | | | COMPLX [place] | | | | | | | RADIATION | | | | | | | THERAPY PLAN | | | | | | | COMPLEX [place] | | | | | | | RADIATION | | | | | | | THERAPY,DOSI | | | | | | | METRY PLAN | | | | | | | [place] SET RADN | | | | | | | THERAPY | | | | | | | FIELD 3D [place] | | | | | | | RADN | | | | | | | TREATMENT | | | | | | | AID(S) | | | | | | | COMPLX [place] | | | | | | | RADN RX | | | | | | | DELIVERY | | | | | | | COMPLX 11-19 | | | | | | | MEV [place] | | | | | | | STEREOSCOPIC | | | | | | | X-RAY GUIDE | | | | | | | [place] | | | | | | | [...] | | | | | | [place] [address] | | | | | | [phone] | | | +--------+ + + + [...]
--- OUTSIDE RECORDS SUMMARY | ~2018-08-24 | XMS | Encounter Summary ---
Demographics + + + | Address | [address] | | | [place] [address] | + + + | Home Phone | | + + + | Preferred Language | Unknown | + + + | Marital Status | Single | + + + | Mosque Affiliation | UNK | + + + | Race | Unknown | + + + | Ethnic Group | Other Race | + + + Author + + + | Author | [facility] | + + + | Organization | [facility] | + + + | Address | Unknown | + + + | Phone | Unavailable | + + + Care Team Providers + +------+ + | Care Network Programmer Name | Role | Phone | + [...] | | | | cell lung | [place] | [address] | | | | | cancer (HCC) | A MEDICAL | [facility] | | | | | Procedures | CENTER [address] | Mailcode: | | | | | | [address] | [address] | | | | | SIMULATION, | [facility] | | | | | RADIATION | [address] | Hospital | | | | | [place] EST | [place], | [facility] | | | | | PATIENT | [place] [address] | [place], [place] | | | | | [place] | Phone: | [phone] | | | | | NEW PATIENT | [phone] | Phone: | | | | | L[place] | Fax: | [phone] | | | | | SET RADN | [phone] | Fax: | | | | | THERAPY | | [phone] | | | | | FIELD SIMPLE | | | | | | | [place] SET | | | | | | | RADN THERAPY | | | | | | | FIELD | | | | | | | COMPLEX [place] | | | | | | | RADN | | | | | | | TREATMENT | | | | | | | AID(S) | | | | | | | COMPLX [place] | | | | | | | RADIATION | | | | | | | THERAPY PLAN | | | | | | | COMPLEX [place] | | | | | | | RADIATION | | | | | | | THERAPY,DOSI | | | | | | | METRY PLAN | | | | | | | [place] SET RADN | | | | | | | THERAPY | | | | | | | FIELD 3D FL | | | | | | | RADN | | | | | | | TREATMENT | | | | | | | AID(S) | | | | | | | COMPLX [place] | | | | | | | RADN RX | | | | | | | DELIVERY | | | | | | | COMPLX 11-19 | | | | | | | MEV [place] | | | | | | | STEREOSCOPIC | | | | | | | X-RAY GUIDE | | | | | | | [place] | | | | | | | [...] | +--------+ + + + + | 04/17/ | Hospital | Radiation Oncology | | | | 2013 | Encounter | at [facility] [address] | | | | | | [address] | | | | | | Jesse Scanlon | | | | | | [place], | | | | | | [place] [address] | | | | | | [phone] | | | +--------+ + + + [...]
--- OUTSIDE RECORDS SUMMARY | ~2018-08-24 | XMS | Encounter Summary ---
Demographics + + + | Address | [address] | | | [place] [address] | + + + | Home Phone [...] Author + + + | Author | [facility] | + + + | Organization | [facility] | + + + | Address | Unknown | + + + | Phone | Unavailable | + + + Care Team Providers + +------+ + | Care Latex Spooler Name | Role | Phone | + [...] | | | | | | [place], | | | | | | [place] [address] | | | | | | [phone] | | | +--------+ + + + [...]
--- OUTSIDE RECORDS SUMMARY | ~2018-08-24 | XMS | Encounter Summary ---
Demographics + + + | Address | [address] | | | [place] [address] | + + + | Home Phone [...] Author + + + | Author | [facility] | + + + | Organization | [facility] | + + + | Address | Unknown | + + + | Phone | Unavailable | + + + Care Team Providers + +------+ + | Care Legal Billing Specialist Name | Role | Phone | [...] | | | | | | [place], | | | | | | [place] [address] | | | | | | [phone] | | | +--------+ + + + [...]
--- OUTSIDE RECORDS SUMMARY | ~2018-08-24 | XMS | Encounter Summary ---
Demographics + + + | Address | [address] | | | [place] [address] | + + + | Home Phone | | + + + | Preferred Language | Unknown | + + + | Marital Status | Single | + + + | Christianity Affiliation | UNK | + + + | Race | Unknown | + + + | Ethnic Group | Other Race | + + + Author + + + | Author | [facility] | + + + | Organization | [facility] | + + + | Address | Unknown | + + + | Phone | Unavailable | + + + Care Team Providers + +------+ + | Care Prepress Specialist Name | Role | Phone | [...] Description | +--------+---------+ + + + | 05/01/ | Office | Radiation Oncology | Ken Milton, | Radiotherapy | | 2013 | Visit | at [facility] [address] | [address] | (Primary Dx) | | | | [address] | [facility] | | | | | Jesse Scanlon | [place], [place] | | | | | [place], | [address] | | | | | [place] [address] | [phone] | | | | | [phone] | | | +--------+---------+ + + + [...] encounter Progress Notes Ken Milton MD - 05/01/2013 11:44 AM PSTFormatting of this note might be different [...] Total RT Dose: 50 Gy. Current Fraction: 20 of 20. Concurrent Chemotherapy: n/a SUBJECTIVE: No new complaints, except pt recommended that we offer different flavors of Gatorade OBJECTIVE: Vital Signs: BP 110/72 | Pulse 73 | Temp (Src) 36.3 C (97.4 F) (Oral) | Wt 90.266 kg (1 99 lb) | SpO2 94% Pain Score: 3 Wt Readings from Last 3 Encounters: 05/01/13 90.266 kg (199 lb) 04/27/13 89.585 kg (197 lb 8 oz) 04/17/13 89.404 kg (197 lb 1.6 oz) Renny Moss Jose's mode of transportation is ambulatory. Gen: still hoarse; ambulatory, in NADistress ASSESSMENT/PLAN: Stable The patient's chart and films were reviewed. Last fraction of RT today. KEN MILTON MD alie Hadley - 05/01 11:14 AM PST Nursing Note Patient here for an On Treatment Visit. Completed 20 fractions of a planned 20. Current dose 5000 cGy of total 5000 cGy. Vitals/Pain Level: BP 110/72 | Pulse 73 | Temp (Src) 36.3 C (97.4 F) (Oral) | Wt 90.266 kg (199 lb) | SpO2 94% Pain Score: Wt Readings from Last 3 Encounters: 05/01/13 90.266 kg (199 lb) 04/27/13 89.585 kg (197 lb 8 oz) 04/17/13 89.404 kg (197 lb 1.6 oz) Subjective: Pt reports 5/10 fatigue level. Pt c/o intermittent sob and L calf dull ache pa in. States had an U/S this am to r/o DVT to LLE. Reports coughing mostly at night. Pt den ies difficulty swallowing or nausea/vomiting. Objective: Pt alert, oriented, and transport via scooter. Accompanied by self. Hoarse voi ce noted. [facility] at [facility]. Nursing Plan: Continue supportive care. Will continue to monitor. documented in this encounter Plan of Treatment Not on filedocumented as of this encounter Visit Diagnoses + + | Diagnosis | + + | Radiotherapy - Primary | + + documented in this encounter"
--- OUTSIDE RECORDS SUMMARY | ~2018-08-24 | XMS | Encounter Summary ---
Demographics + + + | Address | [address] | | | [place] [address] | + + + | Home Phone [...] Providers + +------+ + | Care Senior Clinical Research Scientist Name | Role | Phone | [...] | | | | neoplasm of | [place] | [address] | | | | | bronchus and | A MEDICAL | [facility] | | | | | lung, | [address]ENTER [address] | Rd | | | | | unspecified | [address] | [place], [place] | | | | | site | [place] | [address] | | | | | Procedures | [address] | Phone: | | | | | [place] NEW | [place], | [phone] | | | | | PATIENT | [place] [address] | Fax: | | | | | LEVEL I [place] | Phone: | [phone] | | | | | NEW PATIENT | [phone] | | | | | | LEVEL II [place] | Fax: | | | | | | NEW PATIENT | [phone] | | | | | | LEVEL III | | | | | | | [place] NEW | | | | | | | PATIENT | | | | | | | LEVEL IV [place] | | | | | | | [...] | | | | | | [place], | | | | | | [place] [address] | | | | | | [phone] | | | +--------+ + + + [...]
--- OUTSIDE RECORDS SUMMARY | ~2018-08-24 | XMS | Encounter Summary ---
Demographics + + + | Address | [address] | | | [place] [address] | + + + | Home Phone [...] Team Providers + +------+ + | Care Optometry Doctor Name | Role | Phone | + [...] | | | | | | [place], | | | | | | [place] [address] | | | | | | [phone] | | | +--------+ + + + [...]
--- OUTSIDE RECORDS SUMMARY | ~2018-08-24 | XMS | Encounter Summary ---
Demographics + + + | Address | [address] | | | [place] [address] | + + + | Home Phone [...] Team Providers + +------+ + | Care Solid Die Cutter Name | Role | Phone | + [...] | | | | cell lung | [place] | [address] | | | | | cancer (HCC) | A MEDICAL | [facility] | | | | | Procedures | [address] | Mailcode: | | | | | | [address] | [address] | | | | | SIMULATION, | [facility] | | | | | RADIATION | [address] | Hospital | | | | | [place] EST | [place], | [facility] | | | | | PATIENT | [place] [address] | [place], [place] | | | | | [place] | Phone: | [phone] | | | | | NEW PATIENT | [phone] | Phone: | | | | | LEVEL [place] | Fax: | [phone] | | | | | SET RADN | [phone] | Fax: | | | | | THERAPY | | [phone] | | | | | FIELD SIMPLE | | | | | | | [place] SET | | | | | | | RADN THERAPY | | | | | | | FIELD | | | | | | | COMPLEX [place] | | | | | | | RADN | | | | | | | TREATMENT | | | | | | | AID(S) | | | | | | | COMPLX [place] | | | | | | | RADIATION | | | | | | | THERAPY PLAN | | | | | | | COMPLEX [place] | | | | | | | RADIATION | | | | | | | THERAPY,DOSI | | | | | | | METRY PLAN | | | | | | | [place] SET RADN | | | | | | | THERAPY | | | | | | | FIELD 3D [place] | | | | | | | RADN | | | | | | | TREATMENT | | | | | | | AID(S) | | | | | | | COMPLX [place] | | | | | | | RADN RX | | | | | | | DELIVERY | | | | | | | COMPLX 11-19 | | | | | | | MEV [place] | | | | | | | STEREOSCOPIC | | | | | | | X-RAY GUIDE | | | | | | | [place] | | | | | | | [...] | | | | | | [place] [address] | | | | | | [phone] | | | +--------+ + + + [...]
--- OUTSIDE RECORDS SUMMARY | ~2018-08-24 | XMS | Encounter Summary ---
Demographics + + + | Address | [address] | | | [place] [address] | + + + | Home Phone | | + + + | Preferred Language | Unknown | + + + | Marital Status | Single | + + + | Holiness Affiliation | UNK | + + + | Race | Unknown | + + + | Ethnic Group | Other Race | + + + Author + + + | Author | [facility] | + + + | Organization | [facility] | + + + | Address | Unknown | + + + | Phone | Unavailable | + + + Care Team Providers + +------+ + | Care Splitting Machine Operator Helper Name | Role | [...] | | | | | | [place], | | | | | | [place] [address] | | | | | | [phone] | | | +--------+ + + + [...]
--- OUTSIDE RECORDS SUMMARY | ~2018-08-24 | XMS | Encounter Summary ---
Demographics + + + | Address | [address] | | | [place] [address] | + + + | Home Phone | | + + + | Preferred Language | Unknown | + + + | Marital Status | Single | + + + | Druze Affiliation | UNK | + + + | Race | Unknown | + + + | Ethnic Group | Other Race | + + + Author + + + | Author | [facility] | + + + | Organization | [facility] | + + + | Address | Unknown | + + + | Phone | Unavailable | + + + Care Team Providers + +------+ + | Care Package Drier Name | Role | Phone | + [...] [facility] [address] | MD [address] [facility] | | | | | [facility] [facility] | [facility] | | | | | Jesse Scanlon | [place], [place] | | | | | [place], | [address] | | | | | [place] [address] | [phone] | | | | | [phone] | | | +--------+ + + + [...]
--- OUTSIDE RECORDS SUMMARY | ~2018-08-24 | XMS | Clinical Summary ---
Demographics + + + | Address | [address] | | | [place] [address] | + + + | Home Phone | | + + + | Preferred Language | Unknown | + + + | Marital Status | | + + + | Jainism Affiliation | Unknown | + + + | Race | Unknown | + + + | Ethnic Group | Unknown | + + + Author + + + | Author | [facility] | | | and [place] | + + + | Organization | [facility] | | | and [place] | + + + | Address | Unknown | + + + | Phone | Unavailable | + + + Support + + +---------+ + | Name | Relationship | Address | Phone | + + +---------+ + | Tutu Heck | ECON | Unknown | | + + +---------+ + | AjayRodo | BETO | Unknown | | + + +---------+ + Care Team Providers + +------+ + | Care Fabrication Specialist Name | Role | Phone | + +------+ + | Chen Lopez | PP | | + +------+ + Allergies Not on File Medications Not on file Active Problems Not [...] recent travel history available. | + + Plan of Treatment + + [...] filefrom Last 3 Months Insurance + +--------+ +--------+-------+---------+--------+ | Payer | Benefi | Subscriber | Effect | Phone | Address | Type | | | t Plan | ID | penny | | | | | | / | | Dates | | | | | | Group | | | | | | + +--------+ +--------+-------+---------+--------+ | [employer] | [employer] | [id number] | 07/24/19 | | | Indemn | | | NS | | 18-Pre | | | ity | | | CHOICE | | sent | | | | + +--------+ +--------+-------+---------+--------+ | [employer] | [employer] | [id number] | 07/24/19 | | | Indemn | | | NS | | 18-Pre | | | ity | | | ADMIN | | sent | | | | | | [place] | | | | | | | | [place] | | | | | | + +--------+ +--------+-------+---------+--------+ + +--------+ +--------+ + + | Guarantor Name | Accoun | Relation to | Date | Phone | Billing Address | | | t Type | Patient | of | | | | | | | | | | + +--------+ +--------+ + + | Renny Moss | Person | Self [birth year] | [address] | | | al/[place]azan | | 1940 | [phone] | [place] | | | ap | | | [address] (Home) | [address] | + +--------+ +--------+ + + Advance Directives Patient has advance care planning documents on file. For more information, please contact:Nannette [facility] [place] [address]"
--- OUTSIDE RECORDS SUMMARY | ~2018-08-24 | XMS | Encounter Summary ---
Demographics + + + | Address | [address] | | | [place] [address] | + + + | Home Phone | | + + + | Preferred Language | Unknown | + + + | Marital Status | Single | + + + | Rastafari Affiliation | UNK | + + + [...] Team Providers + +------+ + | Care Radiology Aide Name | Role | Phone | + [...] | | | | PET SKULL | [facility] | [address] | | | | | BASE TO | [place], | Pavilion | | | | | [place] | [place] [address] | [address]o | | | | | | Phone: | Pavilion | | | | | | [phone] | [place], [place] | | | | | | Fax: | [address] | | | | | | [phone] | Phone: | | | | | | | [phone] | | | | | | | Fax: | | | | | | | [phone] | +--------+--------+ + + + + Reason [...] | | | | PET SKULL | [address] | [address] | | | | | BASE TO | [place], | Pavilion | | | | | [place] | [place] [address] | [address] | | | | | | Phone: | Pavilion | | | | | | [phone] | [place], [place] | | | | | | Fax: | [address] | | | | | | [phone] | Phone: | | | | | | | [phone] | | | | | | | Fax: | | | | | | | [phone] | +--------+--------+ + + + + Encounter [...] | | | | | | [address], | | | | | | [place] [address] | | | | | | [phone] | | | +--------+ + + + [...]
--- OUTSIDE RECORDS SUMMARY | ~2018-08-24 | XMS | Encounter Summary ---
Demographics + + + | Address | [address] | | | [place] [address] | + + + | Home Phone | | + + + | Preferred Language | Unknown | + + + | Marital Status | Single | + + + | Moravian Affiliation | UNK | + + + | Race | Unknown | + + + | Ethnic Group | Other Race | + + + Author + + + | Author | [facility] | + + + | Organization | [facility] | + + + | Address | Unknown | + + + | Phone | Unavailable | + + + Care Team Providers + +------+ + | Care Milk Pickup Driver Name | Role | Phone | [...] | | | | | | | [facility] | | | | | | | [place] [address] | | | | | | | Phone: | | | | | | | [phone] | | | | | | | Fax: | | | | | | | [phone] | +--------+--------+ + + + + Encounter Details +--------+---------+ + + + | Date | Type | Department | Care Team | Description | +--------+---------+ + + + | 01/21/ | Office | [facility] | Flakita Fields, | Exudative | | 2018 | Visit | [facility] at | [address] | 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 [facility] Progress Note 01/21/2018 78 y.o. male Choroidal [...] about 4 weeks (around 02/18/2018), or either [place] or the [facility]. Chief Complaint: [...] | Examination: See Ophthalmology Module Attestations: The surgical scrub technician, under the supervision of the physician, is responsible for performing the f ollowing sections: RFV, ROS, PMH, PSH, SocHx, FH, Med list, Base Ophth Exam. The attending physician is responsible for the entire content of the note and has personall y performed the HPI and the physical examination FLAKITA FILEDS MD documented in this encounter Plan of [...] neovascularization | | | | | | ([facility]) | | + +--------+ + + + [...] 1.25 mg/0.05 mL | | | ND: [id number] | | | Lot: [id number] | | | Expiration Date: 01/25/2018 | [...] Performed At | + + + | Dialysis Tech | [facility] | | DocumentationRight EyeQuality: [...] [facility] | [address] | [place] [address] | | | ABRAHAM | Norma. | | | + + + + + FLUORESCEIN ANGIOGRAPHY (01/21/2018 4:20 PM PST) + + ---+ | Narrative | Performed A t | + + ---+ | Dialysis Tech | [facility] | | DocumentationConsent: Informed consent [...] [facility] | [address] | [place] [address] | | | ABRAHAM | Norma. | | | + + + + + ICG ANGIOGRAPHY (01/21/2018 4:19 PM PST) + + -+ | Narrative | Performed At | + + -+ | Dialysis Tech | [facility] | | DocumentationRight EyeQuality: [...] [facility] | [address] | [place] [address] | | | INSTITUTE | [address] | | | + + + + + FUNDUS PHOTOS (01/21/2018 4:19 PM PST) + + + | Narrative | Performed At | + + + | Dialysis Tech | [facility] | | DocumentationType was [...] [facility] | [address] | [place] [address] | | | ABRAAHM | Norma. | | | + + [...]
--- OUTSIDE RECORDS SUMMARY | ~2018-08-24 | XMS | Encounter Summary ---
Demographics + + + | Address | [address] | | | [place] [address] | + + + | Home Phone | | + + + | Preferred Language | Unknown | + + + | Marital Status | Single | + + + | Roman Catholic Affiliation | UNK | + + + | Race | Unknown | + + + | Ethnic Group | Other Race | + + + Author + + + | Author | [facility] | + + + | Organization | [facility] | + + + | Address | Unknown | + + + | Phone | Unavailable | + + + Care Team Providers + +------+ + | Care Eye Surgeon Name | Role | Phone | + [...] | | | | | | [address], | | | | | | [place] [address] | | | | | | [phone] | | | +--------+ + + + [...]
--- OUTSIDE RECORDS SUMMARY | ~2018-08-24 | XMS | Encounter Summary ---
Demographics + + + | Address | [address] | | | [place] [address] | + + + | Home Phone [...] Author + + + | Author | [facility] | + + + | Organization | [facility] | + + + | Address | Unknown | + + + | Phone | Unavailable | + + + Care Team Providers + +------+ + | Care Charge Entry Clerk Name | Role | Phone | [...] | | | | | | [place], | | | | | | [place] [address] | | | | | | [phone] | | | +--------+ + + + [...]
--- OUTSIDE RECORDS SUMMARY | ~2018-08-24 | XMS | Encounter Summary ---
Demographics + + + | Address | [address] | | | [place] [address] | + + + | Home Phone [...] Providers + +------+ + | Care Manager Financial Services Name | Role | Phone | + [...] | | 2013 | Visit | at [facility] [address] | [address] | (Primary Dx) | | | | [address] | [facility] | | | | | Jesse Scanlon | [place], [place] | | | | | [place], | [address] | | | | | [place] [address] | [phone] | | | | | [phone] | | | +--------+---------+ + + + [...] self. Hoarse voi ce noted. Lodging at [facility]. Nursing Plan: Continue supportive care. Will continue to monitor. documented in this encounter Plan of Treatment Not on filedocumented as of this encounter Visit Diagnoses + + | Diagnosis | + + | Radiotherapy - Primary | + + documented in this encounter"
--- OUTSIDE RECORDS SUMMARY | ~2018-08-24 | XMS | Encounter Summary ---
Demographics + + + | Address | [address] | | | [place] [address] | + + + | Home Phone | | + + + | Preferred Language | Unknown | + + + | Marital Status | Single | + + + | Islam Affiliation | UNK | + + + [...] Team Providers + +------+ + | Care Admitting Clerk Name | Role | Phone | [...] | | | | neoplasm of | [place] | [address] | | | | | bronchus and | [facility] | [facility] | | | | | lung, | CENTER [address] | | | | | unspecified | [address] | [place], [place] | | | | | site | [place] | [address] | | | | | Procedures | [address] | Phone: | | | | | [place] NEW | [place], | [phone] | | | | | PATIENT | [place] [address] | Fax: | | | | | LEVEL I IA | Phone: | [phone] | | | | | NEW PATIENT | [phone] | | | | | | LEVEL II [place] | Fax: | | | | | | NEW PATIENT | [phone] | | | | | | LEVEL III | | | | | | | [place] NEW | | | | | | | PATIENT | | | | | | | LEVEL IV IA | | | | | | [...] | | 2013 | Visit-ECX | at [place] [address] | [address] | | | | | [facility] | [facility] | | | | | Mailcode: L[address] | [place], [place] | | | | | [facility] | [address] | | | | | [place], [place] | [phone] | | | | | [address] | | | | | | [phone] | | | +--------+ + + + [...] re. Ken Milton Jr., MD Attending Physician [facility] Radiation Medicine Service Attending Physician [facility] Radiotherapy Service CC: This note has been [...] former smoker, he is a gentleman from [place], [place] with a hist ory of [id number] [...] mouth twice a day for breathing per [facility] (rx#[id number]) rinse mouth after using this inhaler 3) Docusate na 250mg cap take one capsule by mouth twice a day as needed for stool softener per [facility] (rx#[id number]) 4) Gabapentin 300mg cap take one capsule by mouth three times a day per [facility] (rx# [id number]) 5) Hydrocodone 5mg/acetaminophen 325mg tab take 1-2 hold tablets by mouth every 6 hours as needed for pain *more than 4gm/day acetaminophen may harm liver 6) Metformin hcl 850mg tab take one tablet by mouth twice a day before meals for diabetes per [facility] rx#[id number] 7) Omeprazole 20mg ec cap take one capsule by mouth every day . take one-half hour prior to breakfast for stomach acid per [facility] rx#[id number] 8) Pravastatin na 80mg tab take one-half tablet by mouth every evening to lower your cholesterol per [facility] (rx#[id number]) 9) Risperidone 1mg tab take two and one-half tablets by mouth at bedtime as directed per [facility] (rx#[id number]) 10) Tiotropium 18mcg inhl cap 30 place 1 capsule (18 mcg) in inhaler, inhale by mouth every day --- replaces ipratropium (atrovent/combivent), for inhaler use only Allergies: Allergies not on file Social History: -Lives in [place], [place] -quit smoking 6 years ago -No alcohol/drugs -Family lives in [place] -Niece lives nearby his home and helps [...] 22, 2013 Date Verified: FEB 22, 2013 Office Machine Mechanic E-Sig:/ES/FARZAD GIORDANO MD Report: INDICATION: Left paratracheal [...] gross anatomic localization was also performed. COMPARISON: [id number] PET FINDINGS: Limited views of the brain [...] the treatment - as he lives in [place] will plan to simulate nex t Saturday with Radiation to start Saturday or afterwards. ? - 4DCT simulation scan with contrast --Will plan to support back well during treatment as this position flairs symptoms from his spinal stenosis - Labs today for contrast with simulation (DM on metformin) Alexandrea Bourne notified to help with housing at [facility] ? The risks and benefits of radiation [...]
--- OUTSIDE RECORDS SUMMARY | ~2018-08-24 | XMS | Clinical Summary ---
Demographics + + + | Address | [address] | | | [place] [address] | + + + | Home Phone | | + + + | Preferred Language | Unknown | + + + | Marital Status | | + + + | Sabianist Affiliation | Unknown | + + + | Race | Unknown | + + + | Ethnic Group | Unknown | + + + Author + + + | Author | [facility] | | | and [facility] | + + + | Organization | [facility] | | | and [facility] | + [...] Team Providers + +------+ + | Care Heavy Equipment Service Technician Name | Role | Phone | [...] +--------+-------+---------+--------+ | [employer] | [facility] | [id number] | 07/24/19 | | | Indemn | | | NS | | 18-Pre | | | ity | | | CHOICE | | sent | | | | + +--------+ +--------+-------+---------+--------+ | [employer] | [facility] | [id number] | 07/24/19 | | | Indemn | [...] | | al/Yazan | | 1940 | [phone] | [place] | | | ap | | | 6 (Home) | [address] | + +--------+ +--------+ + + Advance Directives Patient has advance care planning documents on file. For more information, please contact:[facility] and [facility] [place] [address]"
[2018-08-24] MEDS ORDERED: NORCO 7.5-3251 EACH PO (13:38)
== END 2018-08-24 15:27 | disposition home or self-care (01) ==
LOC: ED 13:00
DX: S46.911A Strain of unspecified muscle, fascia and tendon at shoulder and upper arm level, right arm, initial encounter (principal); S93.402A Sprain of unspecified ligament of left ankle, initial encounter; I10 Essential (primary) hypertension; E11.9 Type 2 diabetes mellitus without complications; J44.9 Chronic obstructive pulmonary disease, unspecified; Z85.118 Personal history of other malignant neoplasm of bronchus and lung; F17.200 Nicotine dependence, unspecified, uncomplicated; Z88.0 Allergy status to penicillin; Z88.1 Allergy status to other antibiotic agents; Z79.899 Other long term (current) drug therapy; Z79.82 Long term (current) use of aspirin; W01.0XXA Fall on same level from slipping, tripping and stumbling without subsequent striking against object, initial encounter
CPT/HCPCS: 73030; 73610; 99283

== ENCOUNTER 2018-08-27 20:43 | Emergency (ER) | payer OTHER ==
[~2018-08-27] VITALS: Ht 172.7 cm; Wt 64.9 kg
[~2018-08-27 20:43] MED LIST changes: +NORCO 7.5-3251 EACH PO
--- OUTSIDE RECORDS SUMMARY | 2018-08-27 20:46 | XMS ---
PreManage Notification: SUSAN GOEL Security Etcher Photoengraving Events No recent Security Events currently on file CRITERIA MET - [facility] - 2 Visits in 30 Days CARE PROVIDERS There are no care providers on record at this time. Christopher has no Care Guidelines for this patient. [facility] V[facility] (12 MO.) [facility] T[facility] NOTE: Visits indicate total known visits. ED/C VISIT TRACKING (12 MO.) 08/27/2018 20:44 [facility] [place] TYPE: Emergency COMPLAINT: - COUGH WITH BLOOD 08/24/2018 13:01 [facility] [place] TYPE: Emergency COMPLAINT: - L LEG/R WRIST/R SHOULDER PAIN/FALL DIAGNOSES: - Allergy status to other antibiotic agents status - Strain of unspecified muscle, fascia and tendon at shoulder and upper arm level, right arm, initial encounter - Chronic obstructive pulmonary disease, unspecified - Allergy status to penicillin - Fall on same level from slipping, tripping and stumbling without subsequent striking against object, initial encounter - half-way (current) use of aspirin - Personal history of other malignant neoplasm of bronchus and lung - Pain in right shoulder - Type 2 diabetes mellitus without complications - Nicotine dependence, unspecified, uncomplicated - Other custodial (current) drug therapy - Sprain of unspecified ligament of left ankle, initial encounter - Essential (primary) hypertension INPATIENT VISIT TRACKING (12 MO.) No inpatient visits to display in this time frame [email or web address]
== END 2018-08-27 23:27 | disposition home or self-care (01) ==
LOC: ED 20:43
DX: R04.2 Hemoptysis (principal); J44.9 Chronic obstructive pulmonary disease, unspecified; F20.9 Schizophrenia, unspecified; I10 Essential (primary) hypertension; E11.9 Type 2 diabetes mellitus without complications; F17.200 Nicotine dependence, unspecified, uncomplicated; Z88.0 Allergy status to penicillin; Z88.8 Allergy status to other drugs, medicaments and biological substances; Z79.899 Other long term (current) drug therapy; Z79.82 Long term (current) use of aspirin; Z79.84 Long term (current) use of oral hypoglycemic drugs; Z85.118 Personal history of other malignant neoplasm of bronchus and lung
CPT/HCPCS: 71045; 99283-25